=== PATIENT | male | born 1930 | race Caucasian/White ===

== ENCOUNTER 2017-02-17 15:24 | Inpatient (IN) ==
[2017-02-17] MEDS ORDERED: ACETAMINOPHEN 325 MG TABLET PO PRN (16:48)
[2017-02-17] MEDS ORDERED: MAGNESIUM HYDROXIDE 30 ML ORAL.SUSP PO PRN (16:48)
[2017-02-17] MEDS ORDERED: ONDANSETRON 4 MG/2 ML VIAL IV PRN (16:48)
[2017-02-17] MEDS ORDERED: oxyCODONE/APAP 5/325MG TABLET PO PRN (16:48)
[2017-02-17] MEDS ORDERED: IPRATROPIUM/ALBUTEROL 3 ML AMPUL.NEB NEB PRN (16:48)
[2017-02-17] MEDS ORDERED: NALOXONE HCL 0.4 MG/ML VIAL IV PRN (16:48)
[2017-02-17] MEDS ORDERED: PROMETHAZINE 25 MG/ML VIAL IV PRN (16:48)
--- NOTE | 2017-02-17 16:51 | Nephrology Consult Note ---
History of Present Illness - Reason for Consult Patient information: Note initiated : 02/17/17 at 4:46 pm Service Date, if different from initiated Date: [] Patient: Jakob Lancaster 86 y/o M admitted on 02/17/17 for Shortness of breath. Chief Complaint: [] Consult date: 02/17/17 chronic renal failure - Chief Complaint SOB, worsening edema - History of Present Illness Mr Lancaster is a pleasant 86 y/o male with PMH of HTN, CHF, CKD, MDS and other multiple medical issues who was seen in [facility] today for follow up He c/o worsening LE edema with 14 lbs of weight gain since last seen and SOB and progressive weakness Patient has h/o 2 recent hospitalisation at [facility] where he was diagnosed with PNA and also had UGI bleed during his first hospital stay from erosive gastritis He was discharged to SNF on bumex 2mg po daily and he finally was discharged home yesterday during the last couple of weeks his family c/o worsening edema He is getting progressively weak and also had a fall at home He denies CP He denies nausea, vomiting He denies diarrhea He has no c/o cough or fever he denies any urinary issues, but please note he had difficulty inserting mar cath at outside hospital and he does not want this Review of Systems All systems PM: reviewed and no additional remarkable complaints except as stated (as in HPI) Past History Past medical history: Peripheral vascular disease Chronic COPD (chronic obstructive pulmonary disease) Chronic Diabetes mellitus Chronic Hypertension Chronic Benign prostatic hypertrophy Chronic Chronic anticoagulation Chronic Chronic atrial fibrillation Chronic Azotemia Chronic Chronic kidney disease, stage IV (severe) Chronic Acute exacerbation of chronic obstructive pulmonary disease Chronic Recurrent right pleural effusion Chronic Acute decompensated heart failure Chronic Long-term use of high-risk medication Chronic Osteoarthritis Chronic Arthralgia of multiple joints Chronic Secondary hyperparathyroidism of renal origin Chronic Hypomagnesemia Acute Hypertensive renal disease Chronic Edema Chronic Chronic kidney disease, stage IV (severe) Chronic Chronic Kidney Disease Chronic Sleep apnea Chronic Shortness of breath Acute Pulmonary hypertension Chronic Pneumonia Acute Obesity Acute Myelodysplastic syndrome Acute Mitral stenosis Acute Hyperlipidemia Acute Gynecomastia Acute Gout Chronic Type 2 diabetes mellitus Chronic Congestive heart failure Acute CAD (coronary artery disease) Acute Pardo palsy Chronic Atrial fibrillation Chronic Aortic stenosis Acute Anemia Chronic + Past Medical Problems Past surgical history: Surgical History History of total knee arthroplasty Chronic History of total replacement of right shoulder joint Chronic History of right-sided carotid endarterectomy Chronic History of three vessel coronary artery bypass Chronic ~1983 Status post thoracentesis Chronic Hx of CABG Acute History of carotid endarterectomy Acute Previous back surgery Acute Status post Maze operation for atrial fibrillation Acute H/O aortic valve replacement Past family history: NOT PERTINENT Past social history: LIVES WITH HIS IN [place] HAS good family support denies any current addictions Medications and Allergies Home Medications Medication Instructions Recorded Confirmed Type brinzolamide 1 % eye 1 drp OU BID ml 09/27/14 02/17/17 History drops,suspension tamsulosin 0.4 mg capsule 0.4 mg PO HS cap 09/27/14 02/17/17 History cholecalciferol (vitamin D3) 1,000 1,000 unit PO QDAY cap 12/06/14 02/17/17 History unit capsule magnesium 250 mg tablet 250 mg PO QDAY tab 12/06/14 02/17/17 History Brimonidine Ophth Drops [Alphagan 1 gtt OU BID 05/28/15 02/17/17 History P Ophth Drops] Latanoprost Ophth Drops [Xalatan 1 gtt OU HS 05/28/15 02/17/17 History Ophth Drops] ipratropium-albuterol INHALATION QID 07/22/16 02/17/17 History potassium chloride ER 10 mEq 10 meq PO QDAY #30 cap 09/29/16 02/17/17 Rx capsule,extended release verapamil ER (SR) 120 mg 120 mg PO QDAY 09/29/16 02/17/17 History tablet,extended release metolazone 2.5 mg tablet 2.5 mg PO .COMPLEX 30 Days #20 tab 01/27/17 02/17/17 Rx zolpidem 5 mg tablet 5 mg PO HS PRN #14 tab 01/27/17 02/17/17 Rx allopurinol 100 mg tablet 100 mg PO QDAY 02/17/17 02/17/17 History bumetanide 2 mg tablet 2 mg PO QDAY 02/17/17 02/17/17 History calcium acetate 667 mg tablet 667 mg PO QDAY tab 02/17/17 02/17/17 History colchicine 0.6 mg tablet 0.6 mg PO QDAY 02/17/17 02/17/17 History digoxin 125 mcg tablet See Label Instructions .ROUTE 02/17/17 02/17/17 History .COMPLEX fluconazole 100 mg tablet 200 mg PO QDAY tab 02/17/17 02/17/17 History fluticasone 50 mcg/actuation nasal 1 spray INTRANASAL QDAY 02/17/17 02/17/17 History spray,suspension furosemide 80 mg tablet See Label Instructions .ROUTE 02/17/17 02/17/17 History .COMPLEX insulin aspart 100 unit/mL See Label Instructions SUB-Q 02/17/17 02/17/17 History subcutaneous solution .COMPLEX metoprolol succinate ER 25 mg 25 mg PO QDAY 02/17/17 02/17/17 History tablet,extended release 24 hr multivitamin,[id number] 1 tab PO QDAY 02/17/17 02/17/17 History tablet pantoprazole 40 mg tablet,delayed 40 mg PO QDAY 02/17/17 02/17/17 History release polyethylene glycol 3350 17 17 g PO QDAY g 02/17/17 02/17/17 History gram/dose oral powder trazodone 50 mg tablet 50 mg PO QHS 02/17/17 02/17/17 History warfarin 5 mg tablet 5 mg PO QDAY 02/17/17 02/17/17 History Allergies Allergy/AdvReac Type Severity Reaction Status Date / Time No Known Drug Allergies Allergy Verified 02/17/17 14:08 Exam - Vital Signs Vital signs: Temp Resp BP Pulse Ox 98.4 F 20 117/62 100 02/17/17 16:00 02/17/17 16:00 02/17/17 16:00 02/17/17 16:00 - General Appearance General appearance: appears started age, chronically ill EENT: mucous membranes moist Neck: JVD Respiratory: clear Cardiology: no rub, edema (3-4+), irregular rhythm Gastrointestinal: no tenderness, no guarding Integumentary: warm and dry Neurologic: alert and oriented x3 Musculoskeletal: no erythema, no cyanosis Psychiatric: mood/affect appropriate Assessment and Plan (1) Acute CHF (congestive heart failure) patient with acute systolic and diastolic CHF with worsening renal function and anasarca on exam 14 lb weight gain since last seen 3 weeks ago discussed with the patient will start with IV diuresis, lasix 80mg iv tid or lasix gtt will follow the response give recurrent hospitalisation, his renal labs and his fluid status he may need to initiate dialysis, he has refused this in the past but may try if needed His family was very clearly told that given his age and his multiple medical issues not sure how he will tolerate dialysis, did discuss with the pt he has choice not do dialysis and may be opt for hospice will discuss this further anemia: s/p prbc transfusion yesterday, also gets mark and rachel per hematology at [facility] ckd STAGE IV with worsening renal function in the setting of CHF Will follow along Appreciate hospitalist help in managing this pt Status: Acute (2) Chronic kidney disease, stage IV (severe) Status: Chronic (3) Anemia Status: Chronic Qualifiers: 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
[2017-02-17] MEDS ORDERED: FUROSEMIDE 100 MG/10 ML VIAL IV ONE (16:52)
[2017-02-17] MEDS ORDERED: DEXTROSE 31 GM ORAL.SUSP PO PRN (16:53)
[2017-02-17] MEDS ORDERED: DEXTROSE 50% 50 ML VIAL IV PRN (16:53)
--- NOTE | 2017-02-17 16:56 | Internal Med History&Physical ---
Medical - H&P: HPI Patient information: Note initiated : 02/17/17 at 4:54 pm Service Date, if different from initiated Date: [] Patient: Jakob Lancaster a 86 y/o M admitted on 02/17/17 for Shortness of breath. Chief Complaint: [] History of present illness: Mr. Lancaster is a 86 year old Male with h/o chf, cor pulmonale, presents to the hospital as a direct admit from nephrology clinic for CHF exacerbation. The patient has h/o CHF has been admitted 3 times over the last 6 weeks for pneumonia and chf exacerbation at outside facility. The patient was discharged I believe 10 days ago, but has not been completely asymptomatic. He notes that he has been having progressive weakenss and decreased effort tolerence. He is being more short of breath with worsening edema in his lower extremities, which now extend above his knees and involve the depended parts. he was therefore sent from the renal clinic for admission and diuresis the patient admits to cough and clear sputum, no fever, but hayes have some chills , has been treated x 2 for recent pneumonia, has h/o mssa and bronchisepta both were molina sensitive as per hospitalization in january. he had pleural tap done during the last hospitalization, not sure if this fluid was infected. The patient has no other issues reported. berenicethers in the room, patient is DNR. All systems: reviewed and no additional remarkable complaints except as stated ( as per HPI) Medical - H&P: [facility] Medical history: Medical History (Last Reviewed 02/17/17 @ 16:17 by Deidra Contreras MD) Shingles (Acute) Traumatic ecchymosis of left shoulder (Acute) Acute CHF (congestive heart failure) (Acute) Peripheral vascular disease (Chronic) COPD (chronic obstructive pulmonary disease) (Chronic) Diabetes mellitus (Chronic) Hypertension (Chronic) Benign prostatic hypertrophy (Chronic) Chronic anticoagulation (Chronic) Chronic atrial fibrillation (Chronic) Azotemia (Chronic) Chronic kidney disease, stage IV (severe) (Chronic) Acute exacerbation of chronic obstructive pulmonary disease (Chronic) Recurrent right pleural effusion (Chronic) Acute decompensated heart failure (Chronic) Pes planus of both feet (Chronic) Long-term use of high-risk medication (Chronic) Osteoarthritis (Chronic) Arthralgia of multiple joints (Chronic) Secondary hyperparathyroidism of renal origin (Chronic) Hypomagnesemia (Acute) Hypertensive renal disease (Chronic) Edema (Chronic) Chronic kidney disease, stage IV (severe) (Chronic) Chronic Kidney Disease (Chronic) Sleep apnea (Chronic) Shortness of breath (Acute) Pulmonary hypertension (Chronic) Pneumonia (Acute) Obesity (Acute) Myelodysplastic syndrome (Acute) Mitral stenosis (Acute) Hyperlipidemia (Acute) Gynecomastia (Acute) Gout (Chronic) Type 2 diabetes mellitus (Chronic) Congestive heart failure (Acute) CAD (coronary artery disease) (Acute) Pardo palsy (Chronic) Atrial fibrillation (Chronic) Aortic stenosis (Acute) Anemia (Chronic) Surgical history: Past Surgical History (Last Reviewed 02/17/17 @ 16:17 by Deidra Contreras MD) Hx of CABG (Acute) History of carotid endarterectomy (Acute) Previous back surgery (Acute) Status post Maze operation for atrial fibrillation (Acute) H/O aortic valve replacement (Acute) History of right-sided carotid endarterectomy (Chronic) History of three vessel coronary artery bypass (Chronic ~1983) History of total knee arthroplasty (Chronic) History of total replacement of right shoulder joint (Chronic) Status post thoracentesis (Chronic) Pertinent family history: Family History (Last Reviewed 02/17/17 @ 16:17 by Deidra Contreras MD) Father Heart disease Hypertension Myocardial infarction Cancer Mother Ovarian cancer Brother Heart problem Medical - H&P: Meds Home Medications Medication Instructions Recorded Confirmed Type brinzolamide 1 % eye 1 drp OU BID ml 09/27/14 02/17/17 History drops,suspension tamsulosin 0.4 mg capsule 0.4 mg PO HS cap 09/27/14 02/17/17 History cholecalciferol (vitamin D3) 1,000 1,000 unit PO QDAY cap 12/06/14 02/17/17 History unit capsule magnesium 250 mg tablet 250 mg PO QDAY tab 12/06/14 02/17/17 History Brimonidine Ophth Drops [Alphagan 1 gtt OU BID 05/28/15 02/17/17 History P Ophth Drops] Latanoprost Ophth Drops [Xalatan 1 gtt OU HS 05/28/15 02/17/17 History Ophth Drops] ipratropium-albuterol INHALATION QID 07/22/16 02/17/17 History potassium chloride ER 10 mEq 10 meq PO QDAY #30 cap 09/29/16 02/17/17 Rx capsule,extended release verapamil ER (SR) 120 mg 120 mg PO QDAY 09/29/16 02/17/17 History tablet,extended release metolazone 2.5 mg tablet 2.5 mg PO .COMPLEX 30 Days #20 tab 01/27/17 02/17/17 Rx zolpidem 5 mg tablet 5 mg PO HS PRN #14 tab 01/27/17 02/17/17 Rx allopurinol 100 mg tablet 100 mg PO QDAY 02/17/17 02/17/17 History bumetanide 2 mg tablet 2 mg PO QDAY 02/17/17 02/17/17 History calcium acetate 667 mg tablet 667 mg PO QDAY tab 02/17/17 02/17/17 History colchicine 0.6 mg tablet 0.6 mg PO QDAY 02/17/17 02/17/17 History digoxin 125 mcg tablet See Label Instructions .ROUTE 02/17/17 02/17/17 History .COMPLEX fluconazole 100 mg tablet 200 mg PO QDAY tab 02/17/17 02/17/17 History fluticasone 50 mcg/actuation nasal 1 spray INTRANASAL QDAY 02/17/17 02/17/17 History spray,suspension furosemide 80 mg tablet See Label Instructions .ROUTE 02/17/17 02/17/17 History .COMPLEX insulin aspart 100 unit/mL See Label Instructions SUB-Q 02/17/17 02/17/17 History subcutaneous solution .COMPLEX metoprolol succinate ER 25 mg 25 mg PO QDAY 02/17/17 02/17/17 History tablet,extended release 24 hr multivitamin,ba-djos-qtlwyohs 1 tab PO QDAY 02/17/17 02/17/17 History tablet pantoprazole 40 mg tablet,delayed 40 mg PO QDAY 02/17/17 02/17/17 History release polyethylene glycol 3350 17 17 g PO QDAY g 02/17/17 02/17/17 History gram/dose oral powder trazodone 50 mg tablet 50 mg PO QHS 02/17/17 02/17/17 History warfarin 5 mg tablet 5 mg PO QDAY 02/17/17 02/17/17 History Allergies Allergy/AdvReac Type Severity Reaction Status Date / Time No Known Drug Allergies Allergy Verified 02/17/17 14:08 Medical - H&P: Exam - Constitutional Vitals: Temp Resp BP Pulse Ox 98.4 F 20 117/62 100 02/17/17 16:00 02/17/17 16:00 02/17/17 16:00 02/17/17 16:00 Exam: GENERAL: The patient is a well-developed, well-nourished in no apparent distress. Is alert and oriented x3. VITAL SIGNS: Reviewed and as noted elsewhere. HEENT: Head is normocephalic and atraumatic. Extraocular muscles are intact. Pupils are equal, round, and reactive to light. Nares appeared normal. Mouth appears any without lesions. Mucous membranes are moist. NECK: Normal to inspection, Supple, No lymphadenopathy or thyromegaly raised jvp , positive hepatojugular reflex LUNGS: Air entry equal on both sides, no wheezing, prseent bilatateral crackles upto mid lungs. . No accessory muscles of respiration HEART: Regular rate and rhythm normal, S1 and S2 heard, no Gallop, S3 or Rub Noted, systolic murmur present lsbb. ABDOMEN: Soft, nontender, and nondistended. Positive bowel sounds. No hepatosplenomegaly was noted. flank fullness present. EXTREMITIES: No cyanosis, clubbing, rash, lesions , dependend edema ++++ NEUROLOGIC: Cranial nerves II through XII are grossly intact. Motor and Sensory System Grossly Intact PSYCHIATRIC: Normal affect, Normal Mood. Appropriate Behavior. SKIN: No ulceration or wounds noted, No jaundice, No rash noted. Medical - H&P: Reslt - Labs Labs: Laboratory Tests 01/26/17 02/17/17 02/17/17 08:25 14:34 14:34 WBC 5.5 17.3 H Hgb 10.2 L 8.8 L Plt Count 102 L 89 L Sodium 139 Potassium 4.2 Chloride 102 Carbon Dioxide 23 BUN 121 H* Creatinine 2.7 H GFR Calculation 21 Glucose 188 H NT-Pro-B Natriuret Pep > 65093.0 H Medical - H&P: A/P - Narrative A/P Narrative: A/P Acute systolic and Diastoilc heart failure Acute cor pulmonale Chr respiratory failure CAD/ PVD CKD stage 4 Anemia, secondary to chf and myelodysplastic syndrome Thrombocytopenia AFib on Coumadin, DM HTN HLD H/o Recent herpes infeciton. s/p acyclovir Leucocytosis A/P Admit to tele IV lasix 80mg and then IV lasix drip I wou8ld have preferred a mar, but patient declined, if needed can place a condom catheter await X Ray results, still has effusions, not sure if loculated. elevated wbc noted Consider CT chest if loculated effusion, will consider repeated drain try to obtain records from recent hospitalization at [facility] check procalcitonin, start broad spectrum ABX if elevated he was recently transfused for anemia, monitor hb, transfused as needed. He is on darbapoietin and granix Very poor overall prognosis, patient and family educated regarding same. DVT lovenox sq Diet cardiac, renal , diabetic DNR OT/PT/ ST consult Social History - Social History marital status: education level: high school occupational status: retired other: children-4 - Tobacco smoking status: Never smoker - Alcohol alcohol intake frequency: does not drink
--- NOTE | 2017-02-17 17:30 | XRay Report ---
INDICATION: History of congestive heart failure. Dyspnea. TECHNIQUE: PA and lateral upright chest x-ray COMPARISON: Previous chest x-rays dated 01/16/2017, 05/30/2015, 04/21/2008 FINDINGS:Previous median sternotomy. There is cardiomegaly. This is unchanged since 01/16/2017. There is a prosthetic aortic valve. Pulmonary vascularity is prominent consistent pulmonary congestion. There is mild bronchial wall thickening which may be consistent with interstitial edema. There is blunting of both costophrenic angles consistent with pleural effusions, right larger than left. No focal pulmonary parenchymal consolidation. Overall appearance is essentially unchanged since 01/16/2017 IMPRESSION: 1. Cardiomegaly and pulmonary congestion. Possible mild interstitial edema 2. Bilateral pleural effusions, right larger than left 3. Radiographic appearance is essentially unchanged since 01/16/2017 Interpreted and Authenticated by: Franklyn Jansen 02/17/17
[2017-02-17] MEDS: INSULIN LISPRO 1 UNIT/0.01 ML UNIT SQ SCH ×2 (17:35→21:59)
[2017-02-17] MEDS ORDERED: FUROSEMIDE 250 MG in 0.9 % SODIUM CHLORIDE 225 ML IV SCH (18:00)
[2017-02-17] MEDS ORDERED: POTASSIUM CHLORIDE 20 MEQ PACKET PO ONE (20:36)
[2017-02-17] MEDS: traZODone HCL 50 MG TABLET PO SCH (21:48)
[2017-02-17] MEDS: TAMSULOSIN 0.4 MG CAPSULE PO SCH (21:48)
[2017-02-17] MEDS: BRINZOLAMIDE OU SCH (21:51)
[2017-02-17] MEDS: BRIMONIDINE OPHTH DROPS 1 GTT BOTTLE 5ML OU SCH (21:52)
[2017-02-17] MEDS: LEVOFLOXACIN 750 MG/150 ML BAG IV SCH (21:53)
[2017-02-17] MEDS: LATANOPROST OPHTH DROPS 2.5ML BOTTLE OD SCH (21:55)
[2017-02-18 05:27] LABS: ALT/SGPT 16 U/l (0-40); Albumin 3.8 gm/dL (3.2-5.2); Albumin/Globulin Ratio 1.7 (1.0-2.3); Alkaline Phosphatase 114 U/L (39-117); Bilirubin,Direct 0.3 mg/dL (0.0-0.3); Blood Urea Nitrogen 118 mg/dl (8-23); Gamma Glutamyl Transpeptidase 103 U/L (8-61); Magnesium 1.8 mg/dL (1.6-2.5); Uric Acid 11.7 mg/dL (2.5-8.0)
[2017-02-18] MEDS ORDERED: CHLOROTHIAZIDE SODIUM 500 MG VIAL IV ONE (06:52)
[2017-02-18] MEDS: PANTOPRAZOLE 40 MG TABLET PO SCH (07:20)
[2017-02-18 07:32] LABS: Basophils # (Auto) 0 K/mcL (0.0-0.3); Basophils % (Auto) 0 % (0.0-2.0); Eosinophils # (Auto) 0.1 K/mcL (0.0-0.7); Eosinophils % (Auto) 0.5 % (0.0-7.0); Granulocytes % (Auto) 93.4 % (38.0-78.0); Lymphocytes # (Auto) 0.4 K/mcL (1.5-4.8); Lymphocytes % (Auto) 3.1 % (15.5-49.0); Mean Cell Volume 110.2 fL (80.0-100.0); Mean Corpuscular HGB Conc 32.8 g/dL (31.0-36.0); Mean Corpuscular Hemoglobin 36.2 pg (26.0-34.0); Monocytes # (Auto) 0.4 K/mcL (0.1-0.9); Platelet Count 116 K/mcL (140-440); RBC 2.48 M/mcL (4.50-5.90); Red Cell Distribution Width 27.1 % (11.5-14.5)
[2017-02-18] MEDS: INSULIN LISPRO 1 UNIT/0.01 ML UNIT SQ SCH ×4 (07:33→21:08)
[2017-02-18] MEDS ORDERED: COLCHICINE 0.6 MG TABLET PO SCH (09:00)
[2017-02-18] MEDS ORDERED: VERAPAMIL 120 MG TAB.XL.24H PO SCH (09:00)
[2017-02-18] MEDS: ENOXAPARIN 40 MG/0.4 ML SYRINGE SQ SCH (10:12)
[2017-02-18] MEDS: MAGNESIUM OXIDE 400 MG TABLET PO SCH (10:13)
[2017-02-18] MEDS: POTASSIUM CHLORIDE 10 MEQ TABLET PO SCH (10:13)
[2017-02-18] MEDS: ALLOPURINOL 100 MG TABLET PO SCH (10:13)
[2017-02-18] MEDS: CALCIUM ACETATE 667 MG CAPSULE PO SCH (10:13)
[2017-02-18] MEDS: COLCHICINE 0.6 MG TABLET PO SCH (10:48)
[2017-02-18] MEDS: BRINZOLAMIDE OU SCH ×2 (10:48→21:10)
[2017-02-18] MEDS: LATANOPROST OPHTH DROPS 2.5ML BOTTLE OD SCH ×2 (10:49→21:09)
[2017-02-18] MEDS: VITAMIN D3 1,000 UNIT TABLET PO SCH (10:51)
--- NOTE | 2017-02-18 10:59 | Cat Scan Report ---
CLINICAL INFORMATION: Pleural effusions COMPARISON: Previous chest x-rays dated 02/17/2017, 01/16/2017, 05/30/2015 TECHNIQUE: Axial noncontrast enhanced images through the chest. Sagittally and coronally reformatted images. MIP reformatted images. FINDINGS: There are bilateral pleural effusions. Present moderate left pleural effusion. This appears simple without detectable septations or loculations. There is a small right pleural effusion. There is a pleural-based mass density at the right lung base. This measures approximately 4.8 x 1.6 x 2.2 cm. This may be atelectatic lung. No pulmonary parenchymal consolidation. No other focal mass. There is emphysematous disease most marked in the upper lungs. No significant bronchiectasis. There is extensive atherosclerotic calcification. The thoracic aorta is densely calcified. Ascending thoracic aorta measures 3.7 cm in maximum diameter. This is at the upper limits of normal. No true aneurysm. Pulmonary artery is markedly enlarged. Main pulmonary artery measures 5.0 cm in diameter. Right and left pulmonary arteries are enlarged. Appearance is consistent with pulmonary arterial hypertension. Generalized cardiomegaly. There is extensive coronary artery calcification. Patient has undergone previous coronary artery bypass procedure. There is no pericardial fluid. Images of the upper abdomen demonstrate moderate ascites. The spleen is not imaged in its entirety and the craniocaudal dimension is not assessed. There may be a micronodular contour of the liver. No focal intrahepatic abnormality identified on this noncontrast enhanced study. No thoracic compression fracture. No rib fracture or lytic lesion. IMPRESSION: 1. Markedly enlarged main pulmonary artery, right pulmonary, left pulmonary artery. Appearance is consistent with pulmonary arterial hypertension 2. Severe atherosclerotic disease. Densely calcified coronary arteries. There is cardiomegaly. 3. Small right and moderate left pleural effusion. Right basilar soft tissue density may be atelectasis 4. Ascites Interpreted and Authenticated by: Franklyn Jansen 02/18/17
[2017-02-18] MEDS: FLUTICASONE PROPIONATE SPRAY.NAS NS SCH ×2 (11:18→13:02)
[2017-02-18] MEDS: methylPREDNISolone SOD SUCC 125 MG/2 ML VIAL IV SCH ×3 (13:02→23:23)
[2017-02-18] MEDS: DIGOXIN 125 MCG TABLET PO SCH (14:07)
--- NOTE | 2017-02-18 14:10 | Internal Med Progress Note ---
Medical - PN: Subj Patient information: Note initiated : 02/18/17 at 2:07 pm Service Date, if different from initiated Date: [] Patient: Jakob Lancaster a 86 y/o M admitted on 02/17/17 for Shortness of Breath/CHF. Chief Complaint: [] Interval history: Mr. Lancaster is a 86 year old Male with h/o chf, cor pulmonale, presents to the hospital as a direct admit from nephrology clinic for CHF exacerbation. The patient has h/o CHF has been admitted 3 times over the last 6 weeks for pneumonia and chf exacerbation at outside facility. The patient was discharged I believe 10 days ago, but has not been completely asymptomatic. He notes that he has been having progressive weakenss and decreased effort tolerence. He is being more short of breath with worsening edema in his lower extremities, which now extend above his knees and involve the depended parts. he was therefore sent from the renal clinic for admission and diuresis the patient admits to cough and clear sputum, no fever, but hayes have some chills , has been treated x 2 for recent pneumonia, has h/o mssa and bronchisepta both were molina sensitive as per hospitalization in january. he had pleural tap done during the last hospitalization, not sure if this fluid was infected. The patient has no other issues reported. daugthers in the room, patient is DNR. February 18 The patient seen examined, noted that he had some response to IV lasix, but not as much as expected, he had a CT chest done which showed left pleural effusion greater than right. plan to get records for [facility] Patient is voiding ok, recieved one dose of chlorothiazide IV today, will see how he responds He was short of breath more so than yesterday, was placed on bipap, and duonebs and steroids starged ABG done shows PH 7.45/37/95, lac 0.9 Patient nehprologist plans to initiate dialysis will hold off on resuming coumadin at this time. The patient has shortness of breath but otherwise does not endorse any other complaints. Pertinent ROS: Denies headache, dizziness Denies chest pain, palpitations Present cough and shortness of breath Denies abdominal pain, nausea or vomiting. - Constitutional Vitals: Vital Signs Temp Pulse Resp BP Pulse Ox 99.0 F H 83 22 132/64 99 02/18/17 12:00 02/18/17 12:00 02/18/17 12:00 02/18/17 12:00 02/18/17 12:00 Period Temp Pulse Resp BP Sys/Woods Pulse Ox Last 24 Hr 98.0 F-99.4 F 75-89 16-22 116-132/62-78 97-100 Intake and Output 02/18/17 02/18/17 02/18/17 05:59 13:59 21:59 Intake Total 340 / 340 120 / 120 Output Total 1200 / 1200 1525 / 1525 Balance -860 / -860 -1405 / -1405 Weight 198 lb Patient Weight 02/19/17 05:59 Weight 198 lb Intake & Output: Intake & Output 02/18/17 02/18/17 02/18/17 05:59 13:59 21:59 Intake Total 340 / 340 120 / 120 Output Total 1200 / 1200 1525 / 1525 Balance -860 / -860 -1405 / -1405 Weight 198 lb Intake: Oral 340 / 340 120 / 120 Output: Void Amount 1200 / 1200 1525 / 1525 Other: Meal Breakfast Percent of Meal Consumed 100% Feeding Ability Assist with Tray Set Up # Voids 1 # Bowel Movements 1 Exam: Constitutional; Afebrile, cooperative, alert, not in distress. Eyes- No icterus, , No periorbital swelling Ears- Ext ear normal, hearing normal to conversation. Neck- Midline trachea, supple Respiratory system: Air Entry equal on both sides, No crackles or wheezing, no rhonchi. CVS- Rate rhythm regular, S1,S2 heard, no gallop, no rub. Abdomen- Soft nontender abdomen, no organomegaly, no tenderness, no guarding or rigidity, CONTRACTS SPECIALIST- AOOx3, moving all extremities, no gross focal deficit noted. Extremity: Alfredo pitting edema upto thighs Medical - PN: Obj Da - Labs CBC & Chem 7: 02/18/17 04:07 02/18/17 04:07 Labs: Abnormal Lab Results 02/18/17 02/18/17 02/18/17 04:07 04:07 04:07 WBC 12.6 H RBC 2.48 L Hgb 9.0 L Hct 27.3 L MCV 110.2 H MCH 36.2 H RDW 27.1 H Plt Count 116 L MPV 13.4 H Gran % 93.4 H Lymph % (Auto) 3.1 L Gran # 11.8 H Lymph # (Auto) 0.4 L PT 18.9 H INR 1.5 H BUN 118 H* Creatinine 2.8 H Glucose 134 H Uric Acid 11.7 H GGT 103 H Lactate Dehydrogenase 267 H 02/17/17 17:26 WBC RBC Hgb Hct MCV MCH RDW Plt Count MPV Gran % Lymph % (Auto) Gran # Lymph # (Auto) PT 19.5 H INR 1.6 H BUN Creatinine Glucose Uric Acid GGT Lactate Dehydrogenase Meds: Medications Acetaminophen (Tylenol) 650 mg PO Q6HP PRN PRN Reason: PAIN/FEVER > 101 Albuterol/Ipratropium (Duoneb) 3 ml NEB Q4HRT [facility] Allopurinol (Zyloprim) 100 mg PO QDAY [facility] Last Admin: 02/18/17 10:13 Dose: 100 mg Brimonidine Tartrate (Alphagan P Ophth Drops) 1 gtt OU HS [facility] Last Admin: 02/17/17 21:52 Dose: 1 gtt Calcium Acetate (Phoslo) 667 mg PO QAC [facility] Last Admin: 02/18/17 10:13 Dose: 667 mg Colchicine (Colcrys) 0.3 mg PO DAILY [facility] Last Admin: 02/18/17 10:48 Dose: Not Given Dextrose (Dextrose 50%) 0 ml IV UD PRN PRN Reason: Hypoglycemia Diagnostic Test (Pha) (Accu-Chek) 1 each FS ACHS [facility] Last Admin: 02/18/17 07:33 Dose: 1 each Digoxin (Lanoxin) 62.5 mcg PO Q48H [facility] Digoxin (Lanoxin) 125 mcg PO Q48H [facility] Enoxaparin Sodium (Lovenox) 40 mg SQ DAILY [facility] Last Admin: 02/18/17 10:12 Dose: 40 mg Fluticasone Propionate (Flonase) 1 spray NS QDAY [facility] Last Admin: 02/18/17 13:02 Dose: 1 spray Glucose (Insta-Glucose) 15 gm PO PRN PRN PRN Reason: Hypoglycemia Furosemide 250 mg/ Sodium (Chloride) 250 mls @ 10 mls/hr IV Q24H [facility] PRN Reason: 10 MG/HR Last Admin: 02/17/17 17:21 Dose: 10 mg/hr, 10 mls/hr Levofloxacin (Levaquin) 750 mg in 150 mls @ 100 mls/hr IV Q48H [facility] Last Admin: 02/17/17 21:53 Dose: 100 mls/hr Insulin Human Lispro (Humalog) 0 unit SQ ACHS [facility] PRN Reason: Protocol Last Admin: 02/18/17 07:33 Dose: Not Given Latanoprost (Xalatan Ophth Drops) 1 gtt OD BID [facility] Last Admin: 02/18/17 10:49 Dose: 1 gtt Magnesium Hydroxide (Milk Of Magnesia) 30 ml PO DAILYP PRN PRN Reason: Constipation Magnesium Oxide (Magnesium Oxide) 400 mg PO DAILY [facility] Last Admin: 02/18/17 10:13 Dose: 400 mg Methylprednisolone Sodium Succinate (Solu-Medrol) 62.5 mg IV Q8 [facility] Last Admin: 02/18/17 13:02 Dose: 62.5 mg Naloxone HCl (Narcan) 0.1 mg IV Q2MIN PRN PRN Reason: Opiate Reversal Ondansetron HCl (Zofran) 4 mg IV Q4HP PRN PRN Reason: Nausea And Vomiting Oxycodone/Acetaminophen (Percocet 5-325 Mg) 1 tab PO Q4HP PRN PRN Reason: Pain Pantoprazole Sodium (Protonix) 40 mg PO QAMAC [facility] Last Admin: 02/18/17 07:20 Dose: 40 mg Brinzolamide [Azopt] (1 Drp)) 1 dose OU BID [facility] Last Admin: 02/18/17 10:48 Dose: 1 dose Potassium Chlor[facility] (Kdur) [facility] Last Admin: 02/18/17 10:13 Dose: 10 meq Promethazine HCl (Phenergan) 12.5 mg IV Q6HP PRN PRN Reason: Nausea And Vomiting Tamsulosin HCl (Flomax) 0.4 mg PO HS [facility] Last Admin: 02/17/17 21:48 Dose: 0.4 mg Trazodone HCl (Desyrel) 50 mg PO QHS [facility] Last Admin: 02/17/17 21:48 Dose: 50 mg Vitamin D (Vitamin D3) 1,000 unit PO DAILY [facility] Last Admin: 02/18/17 10:51 Dose: 1,000 unit Medical - PN: A/P - Time Spent With Patient Total time spent is greater than 50% in coordination of care (as documented) at patient's floor/unit and/or counseling patient: - Narrative A/P Narrative: A/P Acute systolic and Diastolic heart failure Acute hypoxic respiratory failure Acute cor pulmonale Chr respiratory failure CAD/ PVD CKD stage 4 Anemia, secondary to chf and myelodysplastic syndrome Thrombocytopenia AFib on Coumadin, DM HTN HLD H/o Recent herpes infeciton. s/p acyclovir Leucocytosis COPD A/P continue to monitor on tele On bipap IV steroids and duonebs. on lasix drip, also received iv chlorothiazide today, neg [id number] chest shows no loculated effusion left > right elevated procalcitonin noted, con antibiotics Wbc is trending down bp is stable, will monitor labs and replace lytes as needed hb is stable, and he was recently transfused for anemia, monitor hb, transfused as needed. He is on darbapoietin and granix HOld off on coumadin, Plan for HD catheter placement in AM by IR in [facility] DVT lovenox sq Diet cardiac, renal , diabetic DNR OT/PT/ ST consult Medical - PN: Qual - VTE Deep Vein Thrombosis/Pulmonary Embolism Present on Admission: No
[2017-02-18] MEDS ORDERED: rOPINIRole 0.25 MG TABLET PO ONE (14:31)
[2017-02-18 15:19] LABS: Magnesium 1.8 mg/dL (1.6-2.5)
[2017-02-18 15:30] LABS: Blood Urea Nitrogen 112 mg/dl (8-23)
[2017-02-18] MEDS: FUROSEMIDE IV SCH (16:22)
[2017-02-18] MEDS: DEXTROSE 5% IV SCH (16:22)
[2017-02-18] MEDS: WATER IV SCH (16:22)
[2017-02-18] MEDS: 0.45 % SODIUM CHLORIDE 1,000 ML IV SCH (16:25)
--- NOTE | 2017-02-18 17:37 | Nephrology Progress Note ---
Subjective Patient information: Note initiated : 02/18/17 at 5:35 pm Service Date, if different from initiated Date: [] Patient: Jakob Lancaster 86 y/o M admitted on 02/17/17 for Shortness of Breath/CHF. Chief Complaint: [] Principal diagnosis: CHF Interval history: Patient c/o SOB this am then improved during the day with diuresis and use of Bipap he continues to have issues with volume overload though he denies nausea, vomiting he denies dizziness no CP no other concerns He is currently on lasix gtt at 10mg/hour and he did get chlorthiazide this am his BP is so far maintained Pertinent ROS: as above Objective - Vital Signs Vital signs: Vital Signs Temp Pulse Pulse Resp BP Pulse Ox 02/18/17 17:05 94 H 22 94 02/18/17 16:00 99.2 F H 84 18 131/69 96 02/18/17 12:00 99.0 F H 83 22 132/64 99 02/18/17 10:07 80 19 98 02/18/17 08:45 98.0 F 80 20 123/69 98 02/18/17 04:00 98.0 F 77 16 116/78 97 02/18/17 00:00 98.8 F 75 20 132/72 100 02/17/17 20:00 99.3 F H 81 18 116/62 99 Intake and Output 02/18/17 02/18/17 02/18/17 05:59 13:59 21:59 Intake Total 340 / 340 120 / 120 200 / 200 Output Total 1200 / 1200 1525 / 1525 900 / 900 Balance -860 / -860 -1405 / -1405 -700 / -700 Intake: Oral 340 / 340 120 / 120 200 / 200 Output: Void Amount 1200 / 1200 1525 / 1525 900 / 900 Other: Meal Breakfast Percent of Meal Consumed 100% Feeding Ability Assist with Tray Set Up # Voids 1 # Bowel Movements 1 Weight 198 lb Patient Weight 02/19/17 05:59 Weight 198 lb Intake & Output: Intake & Output 02/18/17 02/18/17 02/18/17 05:59 13:59 21:59 Intake Total 340 / 340 120 / 120 200 / 200 Output Total 1200 / 1200 1525 / 1525 900 / 900 Balance -860 / -860 -1405 / -1405 -700 / -700 Weight 198 lb Intake: Oral 340 / 340 120 / 120 200 / 200 Output: Void Amount 1200 / 1200 1525 / 1525 900 / 900 Other: Meal Breakfast Percent of Meal Consumed 100% Feeding Ability Assist with Tray Set Up # Voids 1 # Bowel Movements 1 - General Appearance General appearance: appears started age, chronically ill EENT: mucous membranes moist Neck: JVD Respiratory: clear Cardiology: no rub, edema (anasarca), normal S1, normal S2 Gastrointestinal: no tenderness, no guarding Integumentary: warm and dry Neurologic: alert and oriented x3 Musculoskeletal: no erythema, no cyanosis Psychiatric: mood/affect appropriate - Lab 02/18/17 04:07 02/18/17 14:39 Most recent lab results Calcium 9.1 mg/dl (8.6-10.4) 02/18/17 14:39 Phosphorus 3.2 mg/dL (2.7-4.5) 02/18/17 14:39 Magnesium 1.8 mg/dL (1.6-2.5) 02/18/17 14:39 Assessment and Plan (1) Acute CHF (congestive heart failure) Mr Lancaster remains fluid overloaded despite using significant doses of loop he did get thiazide diuretic this am to augment the action of loop diuretics He is able to maintain negative fluid balance but given his fluid status, his recent recurrent hospitalisations, his current renal function which has fluctuated significantly (BUN 100-140 and s.creatinine 2.5-3.5 over the last one mth) I have discussed dialysis an option with the patient and his family at length This is given his increasing need of diuretics to maintain near euvolemic state and his current volume status (4 + edema with ascites and b/l pleural effusion) I have discussed risk, (dialysis dysequilibrium, fatigue post dialysis, confusion, seizures, etc) ,benefit of dialysis and also an option of not pursuing this at all and instead pursuing hospice at this point patient wish to give dialysis a try He will have TCC placed tomorrow for the same I will continue with IV diuresis for now given decent response would continue with BIPAP ventilation as well his Hb is stable for now Status: Acute (2) Chronic kidney disease, stage IV (severe) Status: Chronic (3) Anemia Status: Chronic Qualifiers: 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
[2017-02-18] MEDS: IPRATROPIUM/ALBUTEROL 3 ML AMPUL.NEB NEB SCH ×3 (19:21→23:22)
[2017-02-18] MEDS: rOPINIRole 0.25 MG TABLET PO SCH (21:08)
[2017-02-18] MEDS: traZODone HCL 50 MG TABLET PO SCH (21:08)
[2017-02-18] MEDS: TAMSULOSIN 0.4 MG CAPSULE PO SCH (21:08)
[2017-02-18] MEDS: BRIMONIDINE OPHTH DROPS 1 GTT BOTTLE 5ML OU SCH (21:09)
[2017-02-19] MEDS: IPRATROPIUM/ALBUTEROL 3 ML AMPUL.NEB NEB SCH ×6 (02:56→22:58)
[2017-02-19 04:13] LABS: ALT/SGPT 13 U/l (0-40); Albumin 3.8 gm/dL (3.2-5.2); Albumin/Globulin Ratio 1.8 (1.0-2.3); Alkaline Phosphatase 98 U/L (39-117); Bilirubin,Direct 0.4 mg/dL (0.0-0.3); Blood Urea Nitrogen 111 mg/dl (8-23); Gamma Glutamyl Transpeptidase 102 U/L (8-61); Magnesium 1.8 mg/dL (1.6-2.5); Uric Acid 12.1 mg/dL (2.5-8.0)
[2017-02-19 04:26] LABS: Basophils # (Auto) 0 K/mcL (0.0-0.3); Basophils % (Auto) 0 % (0.0-2.0); Eosinophils # (Auto) 0 K/mcL (0.0-0.7); Eosinophils % (Auto) 0 % (0.0-7.0); Granulocytes % (Auto) 95.4 % (38.0-78.0); Lymphocytes # (Auto) 0.1 K/mcL (1.5-4.8); Lymphocytes % (Auto) 3.4 % (15.5-49.0); Mean Cell Volume 110.6 fL (80.0-100.0); Mean Corpuscular HGB Conc 32.8 g/dL (31.0-36.0); Mean Corpuscular Hemoglobin 36.3 pg (26.0-34.0); Monocytes # (Auto) 0 K/mcL (0.1-0.9); Monocytes % (Auto) 1.2 % (1.0-12.0); Platelet Count 108 K/mcL (140-440); RBC 2.52 M/mcL (4.50-5.90); Red Cell Distribution Width 27.3 % (11.5-14.5)
[2017-02-19] MEDS: methylPREDNISolone SOD SUCC 125 MG/2 ML VIAL IV SCH (05:06)
[2017-02-19] MEDS: PANTOPRAZOLE 40 MG TABLET PO SCH (08:18)
[2017-02-19] MEDS: INSULIN LISPRO 1 UNIT/0.01 ML UNIT SQ SCH ×4 (08:19→21:35)
[2017-02-19] MEDS: ALLOPURINOL 100 MG TABLET PO SCH (08:19)
[2017-02-19] MEDS: ENOXAPARIN 40 MG/0.4 ML SYRINGE SQ SCH (08:19)
[2017-02-19] MEDS: CALCIUM ACETATE 667 MG CAPSULE PO SCH (08:20)
[2017-02-19] MEDS: POTASSIUM CHLORIDE 10 MEQ TABLET PO SCH (08:21)
[2017-02-19] MEDS: VITAMIN D3 1,000 UNIT TABLET PO SCH (08:37)
[2017-02-19] MEDS: LEVOFLOXACIN 750 MG/150 ML BAG IV SCH (08:37)
[2017-02-19] MEDS: MAGNESIUM OXIDE 400 MG TABLET PO SCH (08:37)
[2017-02-19] MEDS: FLUTICASONE PROPIONATE SPRAY.NAS NS SCH (08:44)
[2017-02-19] MEDS: BRINZOLAMIDE OU SCH ×2 (08:46→21:26)
[2017-02-19] MEDS: LATANOPROST OPHTH DROPS 2.5ML BOTTLE OD SCH ×2 (08:47→21:26)
[2017-02-19] MEDS ORDERED: MANNITOL 12.5 GM/50 ML VIAL IV ONE (10:47)
[2017-02-19] MEDS: COLCHICINE 0.6 MG TABLET PO SCH (13:00)
--- NOTE | 2017-02-19 13:49 | XRay Report ---
CLINICAL INFORMATION: Dysphagia. Pneumonia. TECHNIQUE: Single contrast barium swallow performed in supine and upright positions COMPARISON: None. FINDINGS: Cervical esophagus is anatomically normal. No cricopharyngeal dysmotility. No Zenker's diverticulum. No stricture or mass. Airway penetration is documented although definite airway aspiration was not noted. No barium identified with in the lungs. There is esophageal dysmotility with tertiary contractions. No esophageal mass or stricture. No hiatal hernia. IMPRESSION: 1. Airway penetration without definite aspiration 2. Tertiary contractions. No esophageal mass or stricture. No obstruction to the passage of barium. Interpreted and Authenticated by: Franklyn Jansen 02/19/17
[2017-02-19] MEDS ORDERED: DIGOXIN 125 MCG TABLET PO SCH (14:00)
--- NOTE | 2017-02-19 15:30 | Internal Med Progress Note ---
Medical - PN: Subj Patient information: Note initiated : 02/19/17 at 3:28 pm Service Date, if different from initiated Date: [] Patient: Jakob Lancaster a 86 y/o M admitted on 02/17/17 for Shortness of Breath/CHF. Chief Complaint: [] Interval history: Mr. Lancaster is a 86 year old Male with h/o chf, cor pulmonale, presents to the hospital as a direct admit from nephrology clinic for CHF exacerbation. The patient has h/o CHF has been admitted 3 times over the last 6 weeks for pneumonia and chf exacerbation at outside facility. The patient was discharged I believe 10 days ago, but has not been completely asymptomatic. He notes that he has been having progressive weakenss and decreased effort tolerence. He is being more short of breath with worsening edema in his lower extremities, which now extend above his knees and involve the depended parts. he was therefore sent from the renal clinic for admission and diuresis the patient admits to cough and clear sputum, no fever, but hayes have some chills , has been treated x 2 for recent pneumonia, has h/o mssa and bronchisepta both were molina sensitive as per hospitalization in january. he had pleural tap done during the last hospitalization, not sure if this fluid was infected. The patient has no other issues reported. daugthers in the room, patient is DNR. February 18 The patient seen examined, noted that he had some response to IV lasix, but not as much as expected, he had a CT chest done which showed left pleural effusion greater than right. plan to get records for [facility] hospit[facility] Patient is voiding ok, recieved one dose of chlorothiazide IV today, will see how he responds He was short of breath more so than yesterday, was placed on bipap, and duonebs and steroids starged ABG done shows PH 7.45/37/95, lac 0.9 Patient nehprologist plans to initiate dialysis will hold off on resuming coumadin at this time. The patient has shortness of breath but otherwise does not endorse any other complaints. February 19 patient doing well, no acute overnight issues did not tolerate bipap well but otherwise ok had Tunneled cath placed this AM, HD started by nephrology Pertinent ROS: Denies headache, dizziness Denies chest pain, palpitations Denies cough or shortness of breath Denies abdominal pain, nausea or vomiting. - Constitutional Vitals: Vital Signs Temp Pulse Resp BP Pulse Ox 97.6 F 76 18 114/69 100 02/19/17 14:07 02/19/17 15:19 02/19/17 15:19 02/19/17 14:07 02/19/17 15:22 Period Temp Pulse Resp BP Sys/Woods Pulse Ox Last 24 Hr 97.6 F-100.0 F 72-94 18-30 114-147/64-75 94-100 Intake and Output 02/19/17 02/19/17 02/19/17 05:59 13:59 21:59 Intake Total 200 / 200 Output Total 1675 / 1675 475 / 475 0 / 0 Balance -1675 / -1675 -275 / -275 0 / 0 Intake & Output: Intake & Output 02/19/17 02/19/17 02/19/17 05:59 13:59 21:59 Intake Total 200 / 200 Output Total 1675 / 1675 475 / 475 0 / 0 Balance -1675 / -1675 -275 / -275 0 / 0 Intake: Oral 200 / 200 Output: Urine Catheter Amount 500 / 500 Void Amount 1175 / 1175 475 / 475 Hemodialysis UF 0 / 0 Other: Meal Lunch Percent of Meal Consumed 100% # Bowel Movements 1 Exam: Constitutional; Afebrile, cooperative, alert, not in distress. Eyes- No icterus, , No periorbital swelling Ears- Ext ear normal, hearing normal to conversation. Neck- Midline trachea, supple Respiratory system: Air Entry equal on both sides, No wheezing, bibasilar crackles still prsent, edema upto just below knees. CVS- Rate rhythm irregular, S1,S2 heard, no gallop, no rub. Abdomen- Soft nontender abdomen, no organomegaly, no tenderness, no guarding or rigidity, POLICY SERVICE COORDINATOR- AOOx3, moving all extremities, no gross focal deficit noted. Medical - PN: Obj Da - Labs CBC & Chem 7: 02/19/17 03:03 02/19/17 03:03 Labs: Abnormal Lab Results 02/19/17 02/19/17 02/19/17 03:03 03:03 03:03 WBC 3.4 L RBC 2.52 L Hgb 9.1 L Hct 27.8 L MCV 110.6 H MCH 36.3 H RDW 27.3 H Plt Count 108 L MPV 13.4 H Gran % 95.4 H Lymph % (Auto) 3.4 L Gran # Lymph # (Auto) 0.1 L Hale # (Auto) 0 L PT 17.5 H INR 1.4 H Anion Gap 17.0 H BUN 111 H* Creatinine 2.5 H Glucose 205 H Uric Acid 12.1 H Direct Bilirubin 0.4 H GGT 102 H Lactate Dehydrogenase Globulin 2.1 L 02/18/17 02/18/17 02/18/17 14:39 04:07 04:07 WBC 12.6 H RBC 2.48 L Hgb 9.0 L Hct 27.3 L MCV 110.2 H MCH 36.2 H RDW 27.1 H Plt Count 116 L MPV 13.4 H Gran % 93.4 H Lymph % (Auto) 3.1 L Gran # 11.8 H Lymph # (Auto) 0.4 L Hale # (Auto) PT INR Anion Gap BUN 112 H* 118 H* Creatinine 2.8 H 2.8 H Glucose 175 H 134 H Uric Acid 11.7 H Direct Bilirubin GGT 103 H Lactate Dehydrogenase 267 H Globulin 02/18/17 02/17/17 04:07 17:26 WBC RBC Hgb Hct MCV MCH RDW Plt Count MPV Gran % Lymph % (Auto) Gran # Lymph # (Auto) Hale # (Auto) PT 18.9 H 19.5 H INR 1.5 H 1.6 H Anion Gap BUN Creatinine Glucose Uric Acid Direct Bilirubin GGT Lactate Dehydrogenase Globulin Meds: Medications Acetaminophen (Tylenol) 650 mg PO Q6HP PRN PRN Reason: PAIN/FEVER > 101 Albuterol/Ipratropium (Duoneb) 3 ml NEB Q4HRT [facility] Last Admin: 02/19/17 15:18 Dose: 3 ml Allopurinol (Zyloprim) 100 mg PO QDAY [facility] Last Admin: 02/19/17 08:19 Dose: 100 mg Brimonidine Tartrate (Alphagan P Ophth Drops) 1 gtt OU HS [facility] Last Admin: 02/18/17 21:09 Dose: 1 gtt Calcium Acetate (Phoslo) [facility] Last Admin: 02/19/17 08:20 Dose: 667 mg Colchicine (Colcrys) 0.3 mg PO DAILY [facility] Last Admin: 02/19/17 13:00 Dose: Not Given Dextrose (Dextrose 50%) 0 ml IV UD PRN PRN Reason: Hypoglycemia Diagnostic Test (Pha) (Accu-Chek) 1 each FS ACHS [facility] Last Admin: 02/19/17 11:35 Dose: 1 each Digoxin (Lanoxin) 62.5 mcg PO Q48H [facility] Digoxin (Lanoxin) 125 mcg PO Q48H [facility] Last Admin: 02/18/17 14:07 Dose: 125 mcg Enoxaparin Sodium (Lovenox) 40 mg SQ DAILY [facility] Last Admin: 02/19/17 08:19 Dose: 40 mg Fluticasone Propionate (Flonase) 1 spray NS QDAY [facility] Last Admin: 02/19/17 08:44 Dose: 1 spr Glucose (Insta-Glucose) 15 gm PO PRN PRN PRN Reason: Hypoglycemia Levofloxacin (Levaquin) 750 mg in 150 mls @ 100 mls/hr IV Q48H [facility] Last Admin: 02/19/17 08:37 Dose: 100 mls/hr Furosemide 250 mg/ Dextrose 250 mls @ 10 mls/hr IV Q24H [facility] PRN Reason: 10 MG/HR Last Admin: 02/18/17 16:22 Dose: 10 mg/hr, 10 mls/hr Sodium Chloride (Sodium Chloride 0.45%) 1,000 mls @ 10 mls/hr IV .Q24H [facility] Last Admin: 02/18/17 16:25 Dose: 10 mls/hr Insulin Human Lispro (Humalog) [address] [facility] PRN Reason: Protocol Last Admin: 02/19/17 11:35 Dose: 4 unit Latanoprost (Xalatan Ophth Drops) 1 gtt OD BID [facility] Last Admin: 02/19/17 08:47 Dose: 1 gtt Magnesium Hydroxide (Milk Of Magnesia) 30 ml PO DAILYP PRN PRN Reason: Constipation Magnesium Oxide (Magnesium Oxide) 400 mg PO DAILY [facility] Last Admin: 02/19/17 08:37 Dose: 400 mg Methylprednisolone Sodium Succinate (Solu-Medrol) 62.5 mg IV Q8 [facility] Last Admin: 02/19/17 05:06 Dose: 62.5 mg Naloxone HCl (Narcan) 0.1 mg IV Q2MIN PRN PRN Reason: Opiate Reversal Ondansetron HCl (Zofran) 4 mg IV Q4HP PRN PRN Reason: Nausea And Vomiting Oxycodone/Acetaminophen (Percocet 5-325 Mg) 1 tab PO Q4HP PRN PRN Reason: Pain Pantoprazole Sodium (Protonix) [facility] Last Admin: 02/19/17 08:18 Dose: 40 mg Brinzolamide [Azopt] (1 Drp)) 1 dose OU BID [facility] Last Admin: 02/19/17 08:46 Dose: 1 dose Potassium Chloride (Kdur) 10 meq [facility] Last Admin: 02/19/17 08:21 Dose: 10 meq Promethazine HCl (Phenergan) 12.5 mg IV Q6HP PRN PRN Reason: Nausea And Vomiting Ropinirole HCl (Requip) 0.5 mg PO [facility] Last Admin: 02/18/17 21:08 Dose: 0.5 mg Tamsulosin HCl (Flomax) 0.4 mg PO [facility] Last Admin: 02/18/17 21:08 Dose: 0.4 mg Trazodone HCl (Desyrel) 50 mg PO QHS [facility] Last Admin: 02/18/17 21:08 Dose: 50 mg Vitamin D (Vitamin D3) 1,000 unit PO DAILY [facility] Last Admin: 02/19/17 08:37 Dose: 1,000 unit Medical - PN: A/P - Time Spent With Patient Total time spent is greater than 50% in coordination of care (as documented) at patient's floor/unit and/or counseling patient: - Narrative A/P Narrative: A/P Acute systolic and Diastolic heart failure Acute hypoxic respiratory failure Acute cor pulmonale Chr respiratory failure CAD/ PVD CKD stage 4 Anemia, secondary to chf and myelodysplastic syndrome Thrombocytopenia AFib on Coumadin, DM HTN HLD H/o Recent herpes infeciton. s/p acyclovir Leucocytosis COPD A/P continue to monitor on tele On bipap, po steroids and duonebs, d/c iv steroids on lasix drip, also received iv chlorothiazide -[id number] since admission. elevated procalcitonin noted, con antibiotics levoflox x total of 5-7 days wbc normal bp is stable, will monitor labs and replace lytes as needed hb is stable, and he was recently transfused for anemia, monitor hb, transfused as needed. He is on darbapoietin and granix as outpatient for MDS Resume Coumadin per pharmacy now, first HD session today. DVT lovenox sq Diet cardiac, renal , diabetic DNR OT/PT/ ST consult Medical - PN: Qual - VTE Deep Vein Thrombosis/Pulmonary Embolism Present on Admission: No
--- NOTE | 2017-02-19 15:33 | Nephrology Progress Note ---
Subjective Patient information: Note initiated : 02/19/17 at 3:27 pm Service Date, if different from initiated Date: [] Patient: aJkob Lancaster 86 y/o M admitted on 02/17/17 for Shortness of Breath/CHF. Chief Complaint: [] Principal diagnosis: CHF Interval history: good diuresis on continuous lasix infusion with gradual improvement in LE edema and dyspnea patient rather feels a lot better today he denies CP does c/o dysphagia no nausea, no other GI issues he had TCC placed this am, no complications Pertinent ROS: as above Objective - Vital Signs Vital signs: Vital Signs Temp Pulse Pulse Resp BP BP Pulse Ox 02/19/17 15:22 100 02/19/17 15:19 76 18 02/19/17 14:07 97.6 F 74 114/69 02/19/17 13:46 80 122/70 02/19/17 13:18 72 126/70 02/19/17 12:50 97.7 F 78 129/65 02/19/17 12:00 98.3 F 18 131/64 100 02/19/17 08:00 20 100 02/19/17 07:58 98.1 F 20 135/75 100 02/19/17 04:00 98.8 F 79 18 147/69 97 02/19/17 00:00 98.8 F 81 20 94 02/18/17 22:31 84 97 02/18/17 21:12 94 02/18/17 20:00 100.0 F H 76 30 H 128/75 100 02/18/17 19:22 94 H 22 94 02/18/17 17:05 94 H 22 94 02/18/17 16:00 99.2 F H 84 18 131/69 96 Intake and Output 02/19/17 02/19/17 02/19/17 05:59 13:59 21:59 Intake Total 200 / 200 Output Total 1675 / 1675 475 / 475 0 / 0 Balance -1675 / -1675 -275 / -275 0 / 0 Intake: Oral 200 / 200 Output: Urine Catheter Amount 500 / 500 Void Amount 1175 / 1175 475 / 475 Hemodialysis UF 0 / 0 Other: Meal Lunch Percent of Meal Consumed 100% # Bowel Movements 1 Intake & Output: Intake & Output 02/19/17 02/19/17 02/19/17 05:59 13:59 21:59 Intake Total 200 / 200 Output Total 1675 / 1675 475 / 475 0 / 0 Balance -1675 / -1675 -275 / -275 0 / 0 Intake: Oral 200 / 200 Output: Urine Catheter Amount 500 / 500 Void Amount 1175 / 1175 475 / 475 Hemodialysis UF 0 / 0 Other: Meal Lunch Percent of Meal Consumed 100% # Bowel Movements 1 - General Appearance General appearance: appears started age, chronically ill EENT: mucous membranes moist Neck: no JVD Respiratory: clear Cardiology: no rub, edema (much improved 2+), normal S1, normal S2 Gastrointestinal: no tenderness, no guarding Integumentary: warm and dry Neurologic: no asterixis, alert and oriented x3 Musculoskeletal: no erythema, no cyanosis Psychiatric: mood/affect appropriate - Lab 02/19/17 03:03 02/19/17 03:03 Most recent lab results Calcium 9.0 mg/dl (8.6-10.4) 02/19/17 03:03 Phosphorus 3.5 mg/dL (2.7-4.5) 02/19/17 03:03 Magnesium 1.8 mg/dL (1.6-2.5) 02/19/17 03:03 Assessment and Plan (1) Acute CHF (congestive heart failure) Patient initiated on dialysis for persistent fluid overload and recurrent hospitalisation in recent past atleast 2 of which are due to SOB/volume overload and fluctuating renal function and needing diuretics in very high doses to maintain reasonable net negative fluid balance, which I think will be difficult to achieve as outpt Patient was dialysed for 1.5 hrs today using revaclear 300 dialyser, 3K/2.5 ca dialysate and no UF removal, qb 200 and [id number], low flow dialysis today to prevent dialysis dysequilirbium he also received mannitol for this reason he will continue with HD tomorrow for longer duration continue lasix gtt for another day and then will switch to intermittent lasix no other change in meds made by me I will continue to follow him, he is eager to go home, refuses going to SNF for rehab, hope we can achieve this soon appreciate hospitalist help in managing this pt Status: Acute (2) Chronic kidney disease, stage IV (severe) Status: Chronic (3) Anemia Status: Chronic Qualifiers: 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
[2017-02-19] MEDS: WARFARIN 5 MG TABLET PO SCH (16:48)
[2017-02-19] MEDS: 0.45 % SODIUM CHLORIDE 1,000 ML IV SCH (16:49)
[2017-02-19] MEDS: FUROSEMIDE IV SCH (16:59)
[2017-02-19] MEDS: DEXTROSE 5% IV SCH (16:59)
[2017-02-19] MEDS: WATER IV SCH (16:59)
[2017-02-19] MEDS: TAMSULOSIN 0.4 MG CAPSULE PO SCH (21:26)
[2017-02-19] MEDS: traZODone HCL 50 MG TABLET PO SCH (21:26)
[2017-02-19] MEDS: BRIMONIDINE OPHTH DROPS 1 GTT BOTTLE 5ML OU SCH (21:27)
[2017-02-19] MEDS: rOPINIRole 0.25 MG TABLET PO SCH (21:38)
[2017-02-20] MEDS: methylPREDNISolone SOD SUCC 125 MG/2 ML VIAL IV SCH (03:03)
[2017-02-20] MEDS: IPRATROPIUM/ALBUTEROL 3 ML AMPUL.NEB NEB SCH ×4 (04:07→15:22)
[2017-02-20 05:03] LABS: ALT/SGPT 11 U/l (0-40); Albumin 3.4 gm/dL (3.2-5.2); Albumin/Globulin Ratio 1.5 (1.0-2.3); Alkaline Phosphatase 85 U/L (39-117); Bilirubin,Direct 0.3 mg/dL (0.0-0.3); Blood Urea Nitrogen 93 mg/dl (8-23); Gamma Glutamyl Transpeptidase 95 U/L (8-61); Magnesium 1.7 mg/dL (1.6-2.5); Uric Acid 10.1 mg/dL (2.5-8.0)
[2017-02-20 06:26] LABS: Basophils # (Auto) 0 K/mcL (0.0-0.3); Basophils % (Auto) 0 % (0.0-2.0); Eosinophils # (Auto) 0 K/mcL (0.0-0.7); Eosinophils % (Auto) 0.2 % (0.0-7.0); Granulocytes % (Auto) 88.4 % (38.0-78.0); Lymphocytes # (Auto) 0.2 K/mcL (1.5-4.8); Lymphocytes % (Auto) 3.2 % (15.5-49.0); Mean Cell Volume 110.3 fL (80.0-100.0); Mean Corpuscular HGB Conc 33.1 g/dL (31.0-36.0); Mean Corpuscular Hemoglobin 36.5 pg (26.0-34.0); Monocytes # (Auto) 0.4 K/mcL (0.1-0.9); Monocytes % (Auto) 8.2 % (1.0-12.0); Platelet Count 103 K/mcL (140-440); RBC 2.52 M/mcL (4.50-5.90); Red Cell Distribution Width 27.1 % (11.5-14.5)
[2017-02-20] MEDS: PANTOPRAZOLE 40 MG TABLET PO SCH (06:53)
[2017-02-20] MEDS: INSULIN LISPRO 1 UNIT/0.01 ML UNIT SQ SCH ×3 (06:53→17:31)
[2017-02-20] MEDS: ENOXAPARIN 40 MG/0.4 ML SYRINGE SQ SCH (07:53)
[2017-02-20] MEDS: ALLOPURINOL 100 MG TABLET PO SCH (07:53)
[2017-02-20] MEDS: CALCIUM ACETATE 667 MG CAPSULE PO SCH (07:53)
[2017-02-20] MEDS: VITAMIN D3 1,000 UNIT TABLET PO SCH (07:53)
[2017-02-20] MEDS: POTASSIUM CHLORIDE 10 MEQ TABLET PO SCH (07:55)
[2017-02-20] MEDS ORDERED: predniSONE 20 MG TABLET PO SCH (08:00)
[2017-02-20] MEDS: LATANOPROST OPHTH DROPS 2.5ML BOTTLE OD SCH ×2 (09:00→22:58)
[2017-02-20] MEDS ORDERED: MANNITOL 12.5 GM/50 ML VIAL IV ONE (09:30)
--- NOTE | 2017-02-20 09:55 | Internal Med Progress Note ---
Medical - PN: Subj Patient information: Note initiated : 02/20/17 at 9:52 am Service Date, if different from initiated Date: [] Patient: Jakob Lancaster a 86 y/o M admitted on 02/17/17 for Shortness of Breath/CHF. Chief Complaint: [] Interval history: Mr. Lancaster is a 86 year old Male with h/o chf, cor pulmonale, presents to the hospital as a direct admit from nephrology clinic for CHF exacerbation. The patient has h/o CHF has been admitted 3 times over the last 6 weeks for pneumonia and chf exacerbation at outside facility. The patient was discharged I believe 10 days ago, but has not been completely asymptomatic. He notes that he has been having progressive weakenss and decreased effort tolerence. He is being more short of breath with worsening edema in his lower extremities, which now extend above his knees and involve the depended parts. he was therefore sent from the renal clinic for admission and diuresis the patient admits to cough and clear sputum, no fever, but hayes have some chills , has been treated x 2 for recent pneumonia, has h/o mssa and bronchisepta both were molina sensitive as per hospitalization in january. he had pleural tap done during the last hospitalization, not sure if this fluid was infected. The patient has no other issues reported. daugthers in the room, patient is DNR. February 18 The patient seen examined, noted that he had some response to IV lasix, but not as much as expected, he had a CT chest done which showed left pleural effusion greater than right. plan to get records for [facility] hospitailz[facility] Patient is voiding ok, recieved one dose of chlorothiazide IV today, will see how he responds He was short of breath more so than yesterday, was placed on bipap, and duonebs and steroids starged ABG done shows PH 7.45/37/95, lac 0.9 Patient nehprologist plans to initiate dialysis will hold off on resuming coumadin at this time. The patient has shortness of breath but otherwise does not endorse any other complaints. February 19 patient doing well, no acute overnight issues did not tolerate bipap well but otherwise ok had Tunneled cath placed this AM, HD started by nephrology February 20 Patient seen examined, lying comfortably in bed, flat no complaints, slept well, ate breakfast, toleated well, no nausea or abdominal pain patient had first session of HD yesterday, seems to have done well, plan for another session today Not needing bipap any more coumadin resumed Pertinent ROS: Denies headache, dizziness Denies chest pain, palpitations Denies cough or shortness of breath Denies abdominal pain, nausea or vomiting. - Constitutional Vitals: Vital Signs Temp Pulse Resp BP Pulse Ox 97.9 F 82 16 129/74 94 02/20/17 06:54 02/20/17 07:51 02/20/17 07:51 02/20/17 06:54 02/20/17 07:51 Period Temp Pulse Resp BP Sys/Woods Pulse Ox Last 24 Hr 97.4 F-99.6 F 72-84 16-20 100-133/49-74 94-100 Intake and Output 02/19/17 02/20/17 02/20/17 21:59 05:59 13:59 Intake Total 650 / 650 600 / 600 50 / 50 Output Total 525 / 525 550 / 550 Balance 125 / 125 50 / 50 50 / 50 Weight 178 lb 4.8 oz Intake & Output: Intake & Output 02/19/17 02/20/17 02/20/17 21:59 05:59 13:59 Intake Total 650 / 650 600 / 600 50 / 50 Output Total 525 / 525 550 / 550 Balance 125 / 125 50 / 50 50 / 50 Weight 178 lb 4.8 oz Intake: IV 490 / 490 Sodium Chloride 0.45% 1,000 ml 244 / 244 @ 10 mls/hr IV .Q24H [facility] Rx#: [id number] Lasix 250 mg In Dextrose 5% in 246 / 246 Water 225 ml @ 10 MG/HR 10 mls/ hr IV Q24H [facility] Rx#:[id number] Oral 160 / 160 50 / 50 GI Tube Flush 600 / 600 Output: Void Amount 525 / 525 550 / 550 Hemodialysis UF 0 / 0 Other: # Voids 1 1 Exam: Constitutional; Afebrile, cooperative, alert, not in distress. Eyes- No icterus, , No periorbital swelling Ears- Ext ear normal, hearing normal to conversation. Neck- Midline trachea, supple Respiratory system: Air Entry equal on both sides, No crackles or wheezing, no rhonchi. CVS- Rate rhythm regular, S1,S2 heard, no gallop, no rub. Edema upto knees Abdomen- Soft nontender abdomen, no organomegaly, no tenderness, no guarding or rigidity, [employer]- AOOx3, moving all extremities, no gross focal deficit noted. Medical - PN: Obj Da - Labs CBC & Chem 7: 02/20/17 04:07 02/20/17 04:07 Labs: Abnormal Lab Results 02/20/17 02/20/17 02/20/17 04:07 04:07 04:07 WBC RBC 2.52 L Hgb 9.2 L Hct 27.8 L MCV 110.3 H MCH 36.5 H RDW 27.1 H Plt Count 103 L MPV 12.7 H Gran % 88.4 H Lymph % (Auto) 3.2 L Gran # Lymph # (Auto) 0.2 L Bennett # (Auto) PT 18.7 H INR 1.5 H Anion Gap BUN 93 H Creatinine 2.2 H Glucose 186 H Uric Acid 10.1 H Direct Bilirubin GGT 95 H Lactate Dehydrogenase Total Protein 5.6 L Globulin 02/19/17 02/19/17 02/19/17 03:03 03:03 03:03 WBC 3.4 L RBC 2.52 L Hgb 9.1 L Hct 27.8 L MCV 110.6 H MCH 36.3 H RDW 27.3 H Plt Count 108 L MPV 13.4 H Gran % 95.4 H Lymph % (Auto) 3.4 L Gran # Lymph # (Auto) 0.1 L Bennett # (Auto) 0 L PT 17.5 H INR 1.4 H Anion Gap 17.0 H BUN 111 H* Creatinine 2.5 H Glucose 205 H Uric Acid 12.1 H Direct Bilirubin 0.4 H GGT 102 H Lactate Dehydrogenase Total Protein Globulin 2.1 L 02/18/17 02/18/17 02/18/17 14:39 04:07 04:07 WBC 12.6 H RBC 2.48 L Hgb 9.0 L Hct 27.3 L MCV 110.2 H MCH 36.2 H RDW 27.1 H Plt Count 116 L MPV 13.4 H Gran % 93.4 H Lymph % (Auto) 3.1 L Gran # 11.8 H Lymph # (Auto) 0.4 L Bennett # (Auto) PT INR Anion Gap BUN 112 H* 118 H* Creatinine 2.8 H 2.8 H Glucose 175 H 134 H Uric Acid 11.7 H Direct Bilirubin GGT 103 H Lactate Dehydrogenase 267 H Total Protein Globulin 02/18/17 02/17/17 04:07 17:26 WBC RBC Hgb Hct MCV MCH RDW Plt Count MPV Gran % Lymph % (Auto) Gran # Lymph # (Auto) Bennett # (Auto) PT 18.9 H 19.5 H INR 1.5 H 1.6 H Anion Gap BUN Creatinine Glucose Uric Acid Direct Bilirubin GGT Lactate Dehydrogenase Total Protein Globulin Meds: Medications Acetaminophen (Tylenol) 650 mg PO Q6HP PRN PRN Reason: PAIN/FEVER > 101 Albuterol/Ipratropium (Duoneb) 3 ml NEB Q4HRT [facility] Last Admin: 02/20/17 06:48 Dose: 3 ml Allopurinol (Zyloprim) 100 mg PO QDAY [facility] Last Admin: 02/20/17 07:53 Dose: 100 mg Brimonidine Tartrate (Alphagan P Ophth Drops) 1 gtt OU HS [facility] Last Admin: 02/19/17 21:27 Dose: 1 gtt [facility]oslo) [facility] Last Admin: 02/20/17 07:53 Dose: 667 mg Colchicine (Colcrys) 0.3 mg PO DAILY [facility] Last Admin: 02/19/17 13:00 Dose: Not Given Dextrose (Dextrose 50%) 0 ml IV UD PRN PRN Reason: Hypoglycemia Diagnostic Test (Pha) (Accu-Chek) 1 each FS ACHS [facility] Last Admin: 02/20/17 06:53 Dose: 1 each Digoxin (Lanoxin) 62.5 mcg PO Q48H [facility] Last Admin: 02/19/17 16:47 Dose: 62.5 mcg Digoxin (Lanoxin) 125 mcg PO Q48H [facility] Last Admin: 02/18/17 14:07 Dose: 125 mcg Enoxaparin Sodium (Lovenox) 40 mg SQ DAILY [facility] Last Admin: 02/20/17 07:53 Dose: 40 mg Fluticasone Propionate (Flonase) 1 spray NS QDAY [facility] Last Admin: 02/19/17 08:44 Dose: 1 spr Furosemide (Lasix) 80 mg PO BIDD [facility] Glucose (Insta-Glucose) 15 gm PO PRN PRN PRN Reason: Hypoglycemia Levofloxacin (Levaquin) 750 mg in 150 mls @ 100 mls/hr IV Q48H [facility] Last Admin: 02/19/17 08:37 Dose: 100 mls/hr Sodium Chloride (Sodium Chloride 0.45%) 1,000 mls @ 10 mls/hr IV .Q24H [facility] Last Admin: 02/19/17 16:49 Dose: 10 mls/hr Insulin Human Lispro (Humalog) 0 unit SQ ACHS [facility] PRN Reason: Protocol Last Admin: 02/20/17 06:53 Dose: 2 unit Latanoprost (Xalatan Ophth Drops) 1 gtt OD BID [facility] Last Admin: 02/19/17 21:26 Dose: 1 gtt Magnesium Hydroxide (Milk Of Magnesia) 30 ml PO DAILYP PRN PRN Reason: Constipation Magnesium Oxide (Magnesium Oxide) 400 mg PO DAILY [facility] Last Admin: 02/19/17 08:37 Dose: 400 mg Metolazone (Zaroxolyn) 2.5 mg PO DAILY@0830 [facility] Naloxone HCl (Narcan) 0.1 mg IV Q2MIN PRN PRN Reason: Opiate Reversal Ondansetron HCl (Zofran) 4 mg IV Q4HP PRN PRN Reason: Nausea And Vomiting Oxycodone/Acetaminophen (Percocet 5-325 Mg) 1 tab PO Q4HP PRN PRN Reason: Pain Last Admin: 02/20/17 00:25 Dose: 1 tab Pantoprazole Sodium (Protonix) 40 mg PO [facility] Last Admin: 02/20/17 06:53 Dose: 40 mg Brinzolamide [Azopt] (1 Drp)) 1 dose OU BID [facility] Last Admin: 02/19/17 21:26 Dose: 1 dose Potassium Chloride (Kdur) 10 meq PO [facility] Last Admin: 02/20/17 07:55 Dose: 10 meq Prednisone (Prednisone) 40 mg PO [facility] Stop: 02/24/17 07:59 Last Admin: 02/20/17 07:54 Dose: 40 mg Promethazine HCl (Phenergan) 12.5 mg IV Q6HP PRN PRN Reason: Nausea And Vomiting Ropinirole HCl (Requip) 0.5 mg PO [facility] Last Admin: 02/19/17 21:38 Dose: 0.5 mg Tamsulosin HCl (Flomax) 0.4 mg PO [facility] Last Admin: 02/19/17 21:26 Dose: 0.4 mg Trazodone HCl (Desyrel) 50 mg PO QHS [facility] Last Admin: 02/19/17 21:26 Dose: 50 mg Vitamin D (Vitamin D3) 1,000 unit PO DAILY [facility] Last Admin: 02/20/17 07:53 Dose: 1,000 unit Warfarin Sodium (Coumadin Per Pharmacy) 1 order PO UD [facility] Warfarin Sodium (Coumadin) 5 mg PO DAILY@1400 [facility] Last Admin: 02/19/17 16:48 Dose: 5 mg Medical - PN: A/P - Time Spent With Patient Total time spent is greater than 50% in coordination of care (as documented) at patient's floor/unit and/or counseling patient: - Narrative A/P Narrative: A/P Acute systolic and Diastolic heart failure- Clinically improving, patient on IV lasix drip, now on dialysis, switch to oral lasix. Acute hypoxic respiratory failure/ Chronic Resp failure: Still needs some oxygen, but off bipap, continue oxygen supplementation to keep osat > 90 % Acute cor pulmonale- chr issue, aggresive fluid removal via HD and using diuresis CAD/ PVD- Continue home medications, ESRD on hemodialysis, HD initiated yesterday, tolerated well, nephrology following Anemia, secondary to chf and myelodysplastic syndrome- Hb stable needs darbapoitin and granix, managed by hematology Thrombocytopenia- Due to MDS stable AFib on Coumadin,- Rate stable, coumadin resumed, also has a cardiac valve replaced DM- glucose ok, on sliding scale insulin, continue same, anticipate some high readings due to use of steroids, HTN- bp stable HLD- on statin. H/o Recent herpes infeciton. s/p acyclovir Leucocytosis- mildly elevated procalcitonin, on levofloxacin, doing well, continue 7-10 datys COPD- on steroids and duonebs, no wheeze on exam. DVT lovenox sq, till INR is therapeutic. Diet cardiac, renal , diabetic DNR OT/PT/ ST consult Medical - PN: Qual - VTE Deep Vein Thrombosis/Pulmonary Embolism Present on Admission: No
[2017-02-20] MEDS: COLCHICINE 0.6 MG TABLET PO SCH (10:27)
[2017-02-20] MEDS: FLUTICASONE PROPIONATE SPRAY.NAS NS SCH (10:27)
[2017-02-20] MEDS: BRINZOLAMIDE OU SCH ×2 (12:21→23:12)
[2017-02-20] MEDS: MAGNESIUM OXIDE 400 MG TABLET PO SCH (14:35)
[2017-02-20] MEDS: DIGOXIN 125 MCG TABLET PO SCH (15:00)
[2017-02-20] MEDS: WARFARIN 5 MG TABLET PO SCH (15:43)
[2017-02-20] MEDS ORDERED: FUROSEMIDE 80 MG TABLET PO SCH (16:00)
[2017-02-20] MEDS: 0.45 % SODIUM CHLORIDE 1,000 ML IV SCH ×2 (17:30→22:20)
[2017-02-20] MEDS ORDERED: oxyCODONE/APAP 5/325MG TABLET PO PRN ×2 (18:31→21:10)
[2017-02-20] MEDS ORDERED: PROMETHAZINE 25 MG/ML VIAL IV PRN ×2 (18:31→21:10)
[2017-02-20] MEDS ORDERED: DEXTROSE 50% 50 ML VIAL IV PRN ×2 (18:31→21:10)
[2017-02-20] MEDS ORDERED: ONDANSETRON 4 MG/2 ML VIAL IV PRN ×2 (18:31→21:10)
[2017-02-20] MEDS ORDERED: NALOXONE HCL 0.4 MG/ML VIAL IV PRN ×2 (18:31→21:10)
[2017-02-20] MEDS ORDERED: 0.45 % SODIUM CHLORIDE 1,000 ML IV SCH (18:31)
[2017-02-20] MEDS ORDERED: DEXTROSE 31 GM ORAL.SUSP PO PRN ×2 (18:31→21:10)
[2017-02-20] MEDS ORDERED: ACETAMINOPHEN 325 MG TABLET PO PRN ×2 (18:31→21:10)
[2017-02-20] MEDS ORDERED: MAGNESIUM HYDROXIDE 30 ML ORAL.SUSP PO PRN ×2 (18:31→21:10)
[2017-02-20] MEDS ORDERED: IPRATROPIUM/ALBUTEROL 3 ML AMPUL.NEB NEB SCH (19:00)
[2017-02-20] MEDS ORDERED: LATANOPROST OPHTH DROPS 2.5ML BOTTLE OD SCH (21:00)
[2017-02-20] MEDS ORDERED: rOPINIRole 0.25 MG TABLET PO SCH (21:00)
[2017-02-20] MEDS ORDERED: INSULIN LISPRO 1 UNIT/0.01 ML UNIT SQ SCH (21:00)
[2017-02-20] MEDS ORDERED: BRIMONIDINE OPHTH DROPS 1 GTT BOTTLE 5ML OU SCH (21:00)
[2017-02-20] MEDS ORDERED: traZODone HCL 50 MG TABLET PO SCH (21:00)
[2017-02-20] MEDS ORDERED: TAMSULOSIN 0.4 MG CAPSULE PO SCH (21:00)
[2017-02-20] MEDS ORDERED: FUROSEMIDE 100 MG/10 ML VIAL IV ONE ×3 (21:04→21:36)
--- NOTE | 2017-02-20 21:29 | Nephrology Progress Note ---
Subjective Patient information: Note initiated : 02/20/17 at 9:25 pm Service Date, if different from initiated Date: [] Patient: Jakob Lancaster 86 y/o M admitted on 02/17/17 for Shortness of Breath/CHF. Chief Complaint: [] Principal diagnosis: CHF Interval history: patient seen during dialysis today He states he feels much better he denies SOB, CP his appetite is much improved his LE edema is improving as well he is anxious to go home soon Pertinent ROS: as above Objective - Vital Signs Vital signs: Vital Signs Temp Pulse Pulse Pulse Resp BP BP 02/20/17 20:08 76 16 02/20/17 20:03 02/20/17 15:50 98.7 F 18 130/84 02/20/17 14:41 98.1 F 67 115/57 02/20/17 14:19 96 H 131/64 02/20/17 13:53 74 122/57 02/20/17 13:20 71 122/73 02/20/17 12:54 86 131/70 02/20/17 12:42 98.3 F 65 109/68 02/20/17 12:00 98.4 F 20 131/70 02/20/17 11:22 76 18 02/20/17 08:00 81 18 02/20/17 07:51 82 16 02/20/17 06:54 97.9 F 20 129/74 02/20/17 04:12 113/65 02/20/17 04:04 99.6 F H 02/19/17 23:46 100/49 02/19/17 23:44 99.3 F H 84 16 100/49 02/19/17 22:59 76 18 Pulse Ox 02/20/17 20:08 02/20/17 20:03 99 02/20/17 15:50 100 02/20/17 14:41 02/20/17 14:19 02/20/17 13:53 02/20/17 13:20 02/20/17 12:54 02/20/17 12:42 02/20/17 12:00 97 02/20/17 11:22 02/20/17 08:00 100 02/20/17 07:51 94 02/20/17 06:54 100 02/20/17 04:12 02/20/17 04:04 02/19/17 23:46 02/19/17 23:44 94 02/19/17 22:59 Intake and Output 02/20/17 02/20/17 02/20/17 05:59 13:59 21:59 Intake Total 600 / 600 160 / 160 500 / 500 Output Total 550 / 550 895 / 895 1500 / 1500 Balance 50 / 50 -735 / -735 -1000 / -1000 Intake: Oral 160 / 160 500 / 500 GI Tube Flush 600 / 600 Output: Urine Catheter Amount 375 / 375 500 / 500 Void Amount 550 / 550 520 / 520 Hemodialysis UF 1000 / 1000 Other: Meal Lunch Percent of Meal Consumed 100% Feeding Ability Independent # Voids 1 Intake & Output: Intake & Output 02/20/17 02/20/17 02/20/17 05:59 13:59 21:59 Intake Total 600 / 600 160 / 160 500 / 500 Output Total 550 / 550 895 / 895 1500 / 1500 Balance 50 / 50 -735 / -735 -1000 / -1000 Intake: Oral 160 / 160 500 / 500 GI Tube Flush 600 / 600 Output: Urine Catheter Amount 375 / 375 500 / 500 Void Amount 550 / 550 520 / 520 Hemodialysis UF 1000 / 1000 Other: Meal Lunch Percent of Meal Consumed 100% Feeding Ability Independent # Voids 1 - General Appearance General appearance: appears started age, chronically ill EENT: mucous membranes moist Neck: no JVD Respiratory: clear Cardiology: no rub, edema, normal S1, normal S2 Gastrointestinal: no tenderness, no organomegaly Integumentary: no rash, warm and dry Neurologic: alert and oriented x3 Musculoskeletal: no erythema, no cyanosis Psychiatric: mood/affect appropriate - Lab 02/20/17 04:07 02/20/17 04:07 Most recent lab results Calcium 8.9 mg/dl (8.6-10.4) 02/20/17 04:07 Phosphorus 3.4 mg/dL (2.7-4.5) 02/20/17 04:07 Magnesium 1.7 mg/dL (1.6-2.5) 02/20/17 04:07 Assessment and Plan (1) Acute CHF (congestive heart failure) cardiorenal syndrome/CHF Patient seen on dialysis today, dialysis done for 2.5 hrs using revaclear dialyser, 3K/2.5Ca dialysate, UF goal of 1L, IC302dx/min, qd 400ml/min laisx gtt d/moses today, will get intermittent lasix with outpatient diuretic regimen of furosemide 80mg and metolazone q2-3days discussed again need for fluid restriction, also important he follows low sodium diet will follow along appreciate hospitalist help in managing this pt Status: Acute (2) Chronic kidney disease, stage IV (severe) Status: Chronic (3) Anemia Status: Chronic Qualifiers: 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
[2017-02-20 21:59] LABS: ALT/SGPT 12 U/l (0-40); Albumin 3.9 gm/dL (3.2-5.2); Alkaline Phosphatase 87 U/L (39-117); Bilirubin,Direct 0.3 mg/dL (0.0-0.3); Blood Urea Nitrogen 59 mg/dl (8-23); Gamma Glutamyl Transpeptidase 102 U/L (8-61); Magnesium 1.8 mg/dL (1.6-2.5); Uric Acid 6.8 mg/dL (2.5-8.0)
[2017-02-20 22:06] LABS: Basophils # (Auto) 0 K/mcL (0.0-0.3); Basophils % (Auto) 0 % (0.0-2.0); Eosinophils # (Auto) 0 K/mcL (0.0-0.7); Eosinophils % (Auto) 0 % (0.0-7.0); Granulocytes % (Auto) 92.1 % (38.0-78.0); Lymphocytes # (Auto) 0.1 K/mcL (1.5-4.8); Lymphocytes % (Auto) 2.2 % (15.5-49.0); Mean Cell Volume 110.2 fL (80.0-100.0); Mean Corpuscular HGB Conc 33.3 g/dL (31.0-36.0); Mean Corpuscular Hemoglobin 36.8 pg (26.0-34.0); Monocytes # (Auto) 0.3 K/mcL (0.1-0.9); Monocytes % (Auto) 5.7 % (1.0-12.0); Platelet Count 87 K/mcL (140-440); RBC 2.55 M/mcL (4.50-5.90); Red Cell Distribution Width 27.5 % (11.5-14.5)
[2017-02-20] MEDS ORDERED: ASPIRIN 325 MG ENTERIC COATED TABLET PO ONE ×2 (22:07→22:37)
[2017-02-20] MEDS ORDERED: INSULIN LISPRO 1 UNIT/0.01 ML UNIT SQ ONE (22:45)
[2017-02-21] MEDS: IPRATROPIUM/ALBUTEROL 3 ML AMPUL.NEB NEB SCH ×7 (00:02→22:42)
[2017-02-21 05:00] LABS: ALT/SGPT 12 U/l (0-40); Albumin 3.8 gm/dL (3.2-5.2); Albumin/Globulin Ratio 1.9 (1.0-2.3); Alkaline Phosphatase 81 U/L (39-117); Bilirubin,Direct 0.3 mg/dL (0.0-0.3); Blood Urea Nitrogen 62 mg/dl (8-23); Gamma Glutamyl Transpeptidase 96 U/L (8-61); Magnesium 1.8 mg/dL (1.6-2.5); Uric Acid 7.4 mg/dL (2.5-8.0)
[2017-02-21 05:30] LABS: Basophils # (Auto) 0 K/mcL (0.0-0.3); Basophils % (Auto) 0 % (0.0-2.0); Eosinophils # (Auto) 0 K/mcL (0.0-0.7); Eosinophils % (Auto) 0 % (0.0-7.0); Granulocytes % (Auto) 86.1 % (38.0-78.0); Lymphocytes # (Auto) 0.2 K/mcL (1.5-4.8); Lymphocytes % (Auto) 4.1 % (15.5-49.0); Mean Corpuscular HGB Conc 32.7 g/dL (31.0-36.0); Mean Corpuscular Hemoglobin 36.6 pg (26.0-34.0); Monocytes # (Auto) 0.5 K/mcL (0.1-0.9); Monocytes % (Auto) 9.8 % (1.0-12.0); Platelet Count 91 K/mcL (140-440); RBC 2.47 M/mcL (4.50-5.90); Red Cell Distribution Width 27.1 % (11.5-14.5)
[2017-02-21] MEDS: INSULIN LISPRO 1 UNIT/0.01 ML UNIT SQ SCH ×4 (06:58→20:32)
[2017-02-21] MEDS: PANTOPRAZOLE 40 MG TABLET PO SCH (07:01)
[2017-02-21] MEDS ORDERED: PANTOPRAZOLE 40 MG TABLET PO SCH (07:30)
[2017-02-21] MEDS: predniSONE 20 MG TABLET PO SCH (07:31)
[2017-02-21] MEDS: CALCIUM ACETATE 667 MG CAPSULE PO SCH (07:31)
[2017-02-21] MEDS: POTASSIUM CHLORIDE 10 MEQ TABLET PO SCH (07:32)
[2017-02-21] MEDS: METOLAZONE 2.5 MG TABLET PO SCH (07:32)
--- NOTE | 2017-02-21 07:47 | XRay Report ---
INDICATION: Dyspnea TECHNIQUE: AP chest x-ray,semi upright COMPARISON: Previous chest x-rays dated 02/17/2017, 01/16/2017, 05/30/2015, 04/21/2008 FINDINGS:Interval placement of a large caliber right central venous catheter. Catheter tip is somewhat difficult to visualize but appears to be in the distal superior vena cava. There is no pneumothorax. Previous median sternotomy. There is cardiomegaly. Bilateral pleural effusions. No definite pulmonary edema. No new focal pulmonary parenchymal infiltrate. Allowances are made for differences in technique there is no definite interval change since 02/17/2017 IMPRESSION: 1. Cardiomegaly and bilateral pleural effusions. 2. No definite pulmonary edema. No acute parenchymal infiltrate. No interval change since 02/17/2017 3. Right central venous catheter with its tip in the superior vena cava. No pneumothorax Interpreted and Authenticated by: Franklyn Jansen 02/21/17
[2017-02-21] MEDS ORDERED: FUROSEMIDE 80 MG TABLET PO SCH ×2 (08:00)
[2017-02-21] MEDS ORDERED: CALCIUM ACETATE 667 MG CAPSULE PO SCH (08:00)
[2017-02-21] MEDS ORDERED: predniSONE 20 MG TABLET PO SCH (08:00)
[2017-02-21] MEDS ORDERED: POTASSIUM CHLORIDE 10 MEQ TABLET PO SCH (08:00)
[2017-02-21] MEDS ORDERED: METOLAZONE 2.5 MG TABLET PO SCH ×2 (08:30)
[2017-02-21] MEDS ORDERED: COLCHICINE 0.6 MG TABLET PO SCH ×2 (09:00)
[2017-02-21] MEDS ORDERED: FLUTICASONE PROPIONATE SPRAY.NAS NS SCH (09:00)
[2017-02-21] MEDS ORDERED: VITAMIN D3 1,000 UNIT TABLET PO SCH (09:00)
[2017-02-21] MEDS ORDERED: MAGNESIUM OXIDE 400 MG TABLET PO SCH (09:00)
[2017-02-21] MEDS ORDERED: ENOXAPARIN 40 MG/0.4 ML SYRINGE SQ SCH (09:00)
[2017-02-21] MEDS ORDERED: ALLOPURINOL 100 MG TABLET PO SCH (09:00)
[2017-02-21] MEDS ORDERED: LEVOFLOXACIN 750 MG/150 ML BAG IV SCH ×2 (09:00)
[2017-02-21] MEDS: FLUTICASONE PROPIONATE SPRAY.NAS NS SCH (09:23)
[2017-02-21] MEDS: ALLOPURINOL 100 MG TABLET PO SCH (09:24)
[2017-02-21] MEDS: ENOXAPARIN 40 MG/0.4 ML SYRINGE SQ SCH (09:24)
[2017-02-21] MEDS: VITAMIN D3 1,000 UNIT TABLET PO SCH (09:24)
[2017-02-21] MEDS: MAGNESIUM OXIDE 400 MG TABLET PO SCH (09:24)
[2017-02-21] MEDS: LATANOPROST OPHTH DROPS 2.5ML BOTTLE OD SCH ×2 (09:26→20:06)
[2017-02-21] MEDS ORDERED: IOPAMIDOL 100 ML BOTTLE IV ONE (11:00)
[2017-02-21] MEDS ORDERED: POLYETHYLENE GLYCOL 3350 17 GM PACKET PO ONE (11:10)
--- NOTE | 2017-02-21 11:19 | Cat Scan Report ---
CLINICAL INFORMATION: Dyspnea. History of congestive heart failure. Elevated d-dimer. COMPARISON: Noncontrast enhanced chest CT scan dated 02/18/2017 TECHNIQUE: Axial images obtained through the chest. 80 mL intravenous contrast was administered, and scanning was performed during pulmonary arterial phase. Sagittally and coronally reformatted images were obtained. MIP reformatted images. FINDINGS: Negative pulmonary CTA. No pulmonary embolism. Main pulmonary artery, left pulmonary artery, right pulmonary artery are negative. No lobar, segmental, or subsegmental abnormalities. As described previously the main pulmonary artery is markedly dilated. Cross-sectional diameter measures approximately 5 cm. This is consistent with pulmonary arterial hypertension. Both the right and left pulmonary arteries are dilated. There is cardiomegaly. No pericardial effusion. There is extensive calcified atherosclerotic disease. Patient has undergone previous median sternotomy and coronary artery bypass procedure. There are bilateral pleural effusions, unchanged. Again demonstrated is focal parenchymal density at the right lung base which may be atelectasis. This is stable. No new parenchymal infiltrate. No bronchiectasis. No pneumothorax. There are nonspecific mediastinal lymph nodes, unchanged. No axillary adenopathy. There is a small amount of free intraperitoneal fluid. Patient is on dialysis. I am not certain whether he is receiving hemodialysis or peritoneal dialysis. No focal intrahepatic abnormality. Liver may be slightly nodular suggesting possible cirrhosis. Clinical correlation is necessary. IMPRESSION: 1. Negative pulmonary CTA. No pulmonary embolism 2. Bilateral pleural effusions are unchanged. No acute pulmonary parenchymal abnormalities 3. Dilatation of the main pulmonary artery, as well as the right and left pulmonary arteries consistent with pulmonary arterial hypertension. 4. Cardiomegaly 5. Free intraperitoneal fluid. This may be ascites or may be secondary to peritoneal dialysis Interpreted and Authenticated by: Franklyn Jansen 02/21/17
[2017-02-21] MEDS ORDERED: WARFARIN 7.5 MG TABLET PO ONE (14:00)
[2017-02-21] MEDS ORDERED: WARFARIN 5 MG TABLET PO SCH ×2 (14:00)
[2017-02-21] MEDS ORDERED: FUROSEMIDE 100 MG/10 ML VIAL IV SCH (14:00)
[2017-02-21] MEDS ORDERED: DIGOXIN 125 MCG TABLET PO SCH ×2 (14:00)
--- NOTE | 2017-02-21 15:48 | Nephrology Progress Note ---
Subjective Patient information: Note initiated : 02/21/17 at 3:46 pm Service Date, if different from initiated Date: [] Patient: Jakob Lancaster 86 y/o M admitted on 02/17/17 for Shortness of Breath/CHF. Chief Complaint: [] Principal diagnosis: CHF Interval history: Patient worsening SOB last night extensive work up done shows no changes He c/o anxiety from multiple ongoing issues he denies CP, dizziness He has no GI issues he still has LE edema Pertinent ROS: as above Objective - Vital Signs Vital signs: Vital Signs Temp Pulse Pulse Resp BP BP Pulse Ox 02/21/17 15:28 78 137/78 02/21/17 14:48 93 H 141/72 02/21/17 14:34 98 F 18 133/61 93 02/21/17 14:21 88 124/77 02/21/17 13:58 71 103/66 02/21/17 13:28 88 123/60 02/21/17 13:00 98.6 F 94 H 126/68 02/21/17 11:51 85 18 02/21/17 11:25 98 F 18 123/59 93 02/21/17 07:17 86 18 95 02/21/17 06:42 98.2 F 18 118/62 93 02/21/17 04:15 98.6 F 02/21/17 03:52 99.0 F H 86 18 128/55 97 02/21/17 00:20 98.5 F 77 18 98 02/21/17 00:10 75 16 02/20/17 20:40 85 128/74 96 02/20/17 20:08 76 16 02/20/17 20:03 99 02/20/17 19:50 98.1 F 74 18 119/59 98 02/20/17 15:50 98.7 F 18 130/84 100 Intake and Output 02/21/17 02/21/17 02/21/17 05:59 13:59 21:59 Intake Total 360 / 360 200 / 200 360 / 360 Output Total 760 / 760 350 / 350 Balance -400 / -400 -150 / -150 360 / 360 Intake: Oral 360 / 360 200 / 200 360 / 360 Output: Void Amount 760 / 760 350 / 350 Other: Weight 171 lb Intake & Output: Intake & Output 02/21/17 02/21/17 02/21/17 05:59 13:59 21:59 Intake Total 360 / 360 200 / 200 360 / 360 Output Total 760 / 760 350 / 350 Balance -400 / -400 -150 / -150 360 / 360 Weight 171 lb Intake: Oral 360 / 360 200 / 200 360 / 360 Output: Void Amount 760 / 760 350 / 350 - General Appearance General appearance: appears started age, chronically ill EENT: mucous membranes moist Neck: no JVD Respiratory: clear Cardiology: no rub, edema, irregular rhythm Gastrointestinal: no tenderness, no guarding Integumentary: no rash, warm and dry Neurologic: alert and oriented x3 Musculoskeletal: no cyanosis, no clubbing Psychiatric: mood/affect appropriate - Lab 02/21/17 04:00 02/21/17 04:00 Most recent lab results Calcium 8.9 mg/dl (8.6-10.4) 02/21/17 04:00 Phosphorus 2.8 mg/dL (2.7-4.5) 02/21/17 04:00 Magnesium 1.8 mg/dL (1.6-2.5) 02/21/17 04:00 Assessment and Plan (1) Acute CHF (congestive heart failure) cardiorenal syndrome/CHF patient willbe dialysed today mainly to get the contrast agent dialysed off i an attempt to preserve his residual renal function Will also attempt 2-3l uf given persistent e/o fluid excess on exam HD for 3.5 hrs using revaclear dialyser, 3k/2.5 CA DIALYSATE, UF goal of 2-3L as tolerated next hd on wednesday agrees to go to SNF has issues with anxiety, discussed prognosis at length will follow Status: Acute (2) Chronic kidney disease, stage IV (severe) Status: Chronic (3) Anemia Status: Chronic Qualifiers: 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
--- NOTE | 2017-02-21 17:21 | Internal Med Progress Note ---
Medical - PN: Subj Patient information: Note initiated : 02/21/17 at 5:17 pm Service Date, if different from initiated Date: [] Patient: Jakob Lancaster a 86 y/o M admitted on 02/17/17 for Shortness of Breath/CHF. Chief Complaint: [] Interval history: Mr. Lancaster is a 86 year old Male with h/o chf, cor pulmonale, presents to the hospital as a direct admit from nephrology clinic for CHF exacerbation. The patient has h/o CHF has been admitted 3 times over the last 6 weeks for pneumonia and chf exacerbation at outside facility. The patient was discharged I believe 10 days ago, but has not been completely asymptomatic. He notes that he has been having progressive weakenss and decreased effort tolerence. He is being more short of breath with worsening edema in his lower extremities, which now extend above his knees and involve the depended parts. he was therefore sent from the renal clinic for admission and diuresis the patient admits to cough and clear sputum, no fever, but hayes have some chills , has been treated x 2 for recent pneumonia, has h/o mssa and bronchisepta both were molina sensitive as per hospitalization in january. he had pleural tap done during the last hospitalization, not sure if this fluid was infected. The patient has no other issues reported. daugthers in the room, patient is DNR. February 18 The patient seen examined, noted that he had some response to IV lasix, but not as much as expected, he had a CT chest done which showed left pleural effusion greater than right. plan to get [facility] Patient is voiding ok, recieved one dose of chlorothiazide IV today, will see how he responds He was short of breath more so than yesterday, was placed on bipap, and duonebs and steroids starged ABG done shows PH 7.45/37/95, lac 0.9 Patient nehprologist plans to initiate dialysis will hold off on resuming coumadin at this time. The patient has shortness of breath but otherwise does not endorse any other complaints. February 19 patient doing well, no acute overnight issues did not tolerate bipap well but otherwise ok had Tunneled cath placed this AM, HD started by nephrology February 20 Patient seen examined, lying comfortably in bed, flat no complaints, slept well, ate breakfast, toleated well, no nausea or abdominal pain patient had first session of HD yesterday, seems to have done well, plan for another session today Not needing bipap any more coumadin resumed February 21 Patient seen examiend ovenright issues reviewed, sob, workup neg, pt likely has anxiety issues and when he gets upset he becomes osb CTA neg, HD planned after CTA patient to continue on cpap, and oral diuretics try to remove more fluid if possible during HD Pertinent ROS: Denies headache, dizziness Denies chest pain, palpitations no cough, but sob present intermittent. Denies abdominal pain, nausea or vomiting. - Constitutional Vitals: Vital Signs Temp Pulse Resp BP Pulse Ox 97 F 68 18 121/69 93 02/21/17 16:12 02/21/17 16:12 02/21/17 14:34 02/21/17 16:12 02/21/17 14:34 Period Temp Pulse Resp BP Sys/Woods Pulse Ox Last 24 Hr 97 F-99.0 F 68-94 16-18 103-141/55-78 93-99 Intake and Output 02/21/17 02/21/17 02/21/17 05:59 13:59 21:59 Intake Total 360 / 360 200 / 200 360 / 360 Output Total 760 / 760 350 / 350 2500 / 2500 Balance -400 / -400 -150 / -150 -2140 / -2140 Weight 171 lb Intake & Output: Intake & Output 02/21/17 02/21/17 02/21/17 05:59 13:59 21:59 Intake Total 360 / 360 200 / 200 360 / 360 Output Total 760 / 760 350 / 350 2500 / 2500 Balance -400 / -400 -150 / -150 -2140 / -2140 Weight 171 lb Intake: Oral 360 / 360 200 / 200 360 / 360 Output: Void Amount 760 / 760 350 / 350 500 / 500 Hemodialysis UF 1999 Exam: Constitutional; Afebrile, cooperative, alert, not in distress. Eyes- No icterus, , No periorbital swelling Ears- Ext ear normal, hearing normal to conversation. Neck- Midline trachea, supple Respiratory system: Air Entry equal on both sides, No crackles or wheezing, no rhonchi. CVS- Rate rhythm irregular, S1,S2 heard, no gallop, no rub. Abdomen- Soft nontender abdomen, no organomegaly, no tenderness, no guarding or rigidity, [employer]FT [employer]ER- AOOx3, moving all extremities, no gross focal deficit noted. Medical - PN: Obj Da - Labs CBC & Chem 7: 02/21/17 04:00 02/21/17 04:00 Labs: Abnormal Lab Results 02/21/17 02/21/17 02/21/17 04:00 04:00 04:00 WBC RBC 2.47 L Hgb 9.1 L Hct 27.7 L MCV 112.0 H MCH 36.6 H RDW 27.1 H Plt Count 91 L MPV 12.6 H Gran % 86.1 H Lymph % (Auto) 4.1 L Lymph # (Auto) 0.2 L [place] # (Auto) PT INR D-Dimer Chloride Anion Gap BUN 62 H Creatinine 1.8 H Glucose 153 H Uric Acid Direct Bilirubin GGT 96 H Troponin T 0.16 H* Total Protein 5.8 L Globulin 2.0 L 02/21/17 02/20/17 02/20/17 04:00 20:50 20:50 WBC RBC Hgb Hct MCV MCH RDW Plt Count MPV Gran % Lymph % (Auto) Lymph # (Auto) [place] # (Auto) PT 18.1 H INR 1.5 H D-Dimer Chloride 94 L Anion Gap 17.0 H BUN 59 H Creatinine 1.9 H Glucose 213 H Uric Acid Direct Bilirubin GGT 102 H Troponin T 0.15 H* Total Protein Globulin 2.0 L 02/20/17 02/20/17 02/20/17 20:50 20:50 04:07 WBC RBC 2.55 L 2.52 L Hgb 9.4 L 9.2 L Hct 28.1 L 27.8 L MCV 110.2 H 110.3 H MCH 36.8 H 36.5 H RDW 27.5 H 27.1 H Plt Count 87 L 103 L MPV 10.6 H 12.7 H Gran % 92.1 H 88.4 H Lymph % (Auto) 2.2 L 3.2 L Lymph # (Auto) 0.1 L 0.2 L [place] # (Auto) PT INR D-Dimer 2.16 H Chloride Anion Gap BUN Creatinine Glucose Uric Acid Direct Bilirubin GGT Troponin T Total Protein Globulin 02/20/17 02/20/17 02/19/17 04:07 04:07 03:03 WBC 3.4 L RBC 2.52 L Hgb 9.1 L Hct 27.8 L MCV 110.6 H MCH 36.3 H RDW 27.3 H Plt Count 108 L MPV 13.4 H Gran % 95.4 H Lymph % (Auto) 3.4 L Lymph # (Auto) 0.1 L [place] # (Auto) 0 L PT 18.7 H INR 1.5 H D-Dimer Chloride Anion Gap BUN 93 H Creatinine 2.2 H Glucose 186 H Uric Acid 10.1 H Direct Bilirubin GGT 95 H Troponin T Total Protein 5.6 L Globulin 02/19/17 02/19/17 03:03 03:03 WBC RBC Hgb Hct MCV MCH RDW Plt Count MPV Gran % Lymph % (Auto) Lymph # (Auto) [place] # (Auto) PT 17.5 H INR 1.4 H D-Dimer Chloride Anion Gap 17.0 H BUN 111 H* Creatinine 2.5 H Glucose 205 H Uric Acid 12.1 H Direct Bilirubin 0.4 H GGT 102 H Troponin T Total Protein Globulin 2.1 L Meds: Medications Acetaminophen (Tylenol) 650 mg PO Q6HP PRN PRN Reason: PAIN/FEVER > 101 Albuterol/Ipratropium (Duoneb) 3 ml NEB Q4HRT [facility] Last Admin: 02/21/17 14:56 Dose: Not Given Allopurinol (Zyloprim) 100 mg PO QDAY [facility] Last Admin: 02/21/17 09:24 Dose: 100 mg Brimonidine Tartrate (Alphagan P Ophth Drops) 1 gtt OU HS [facility] Calcium Acetate (Phoslo) 667 mg PO [facility] Last Admin: 02/21/17 07:31 Dose: 667 mg Dextrose (Dextrose 50%) 0 ml IV UD PRN PRN Reason: Hypoglycemia Diagnostic Test (Pha) (Accu-Chek) 1 each FS ACHS [facility] Last Admin: 02/21/17 16:59 Dose: 1 each Digoxin (Lanoxin) 62.5 mcg PO Q48H [facility] Last Admin: 02/21/17 16:58 Dose: 62.5 mcg Digoxin (Lanoxin) 125 mcg PO Q48H [facility] Enoxaparin Sodium (Lovenox) 40 mg SQ DAILY [facility] Last Admin: 02/21/17 09:24 Dose: 40 mg Fluticasone Propionate (Flonase) 1 spray NS QDAY [facility] Last Admin: 02/21/17 09:23 Dose: 1 spray Furosemide (Lasix) 80 mg IV Q12 [facility] Glucose (Insta-Glucose) 15 gm PO PRN PRN PRN Reason: Hypoglycemia Levofloxacin (Levaquin) 750 mg in 150 mls @ 100 mls/hr IV Q48H [facility] Last Admin: 02/21/17 09:23 Dose: 100 mls/hr Sodium Chloride (Sodium Chloride 0.45%) 1,000 mls @ 10 mls/hr IV .Q24H [facility] Last Admin: 02/20/17 22:20 Dose: Not Given Insulin Human Lispro (Humalog) 0 unit SQ ACHS [facility] PRN Reason: Protocol Last Admin: 02/21/17 17:02 Dose: 2 unit Latanoprost (Xalatan Ophth Drops) 1 gtt OD BID [facility] Last Admin: 02/21/17 09:26 Dose: 1 gtt Magnesium Hydroxide (Milk Of Magnesia) 30 ml PO DAILYP PRN PRN Reason: Constipation Magnesium Oxide (Magnesium Oxide) 400 mg PO DAILY [facility] Last Admin: 02/21/17 09:24 Dose: 400 mg Metolazone (Zaroxolyn) 2.5 mg PO DAILY@0830 [facility] Last Admin: 02/21/17 07:32 Dose: 2.5 mg Naloxone HCl (Narcan) 0.1 mg IV Q2MIN PRN PRN Reason: Opiate Reversal Ondansetron HCl (Zofran) 4 mg IV Q4HP PRN PRN Reason: Nausea And Vomiting Oxycodone/Acetaminophen (Percocet 5-325 Mg) 1 tab PO Q4HP PRN PRN Reason: Pain [facility] Last Admin: 02/21/17 07:01 Dose: 40 mg Brinzolamide [Azopt] 1 dose OU BID [facility] Last Admin: 02/21/17 09:25 Dose: 1 dose Polyethylene Glycol (Miralax) 17 gm PO DAILY [facility] Potassium Chloride (Kdur) 10 meq PO [facility] Last Admin: 02/21/17 07:32 Dose: 10 meq Prednisone (Prednisone) 40 mg PO [facility] Stop: 02/24/17 07:59 Last Admin: 02/21/17 07:31 Dose: 40 mg Promethazine HCl (Phenergan) 12.5 mg IV Q6HP PRN PRN Reason: Nausea And Vomiting Ropinirole HCl (Requip) 0.5 mg PO HS [facility] Tamsulosin HCl (Flomax) 0.4 mg PO HS [facility] Trazodone HCl (Desyrel) 50 mg PO QHS [facility] Vitamin D (Vitamin D3) 1,000 unit PO DAILY [facility] Last Admin: 02/21/17 09:24 Dose: 1,000 unit Warfarin Sodium (Coumadin Per Pharmacy) 1 order PO UD [facility] Medical - PN: A/P - Time Spent With Patient Total time spent is greater than 50% in coordination of care (as documented) at patient's floor/unit and/or counseling patient: - Narrative A/P Narrative: A/P Acute systolic and Diastolic heart failure- Clinically improving, patient on Iv lasix again given sob last night, but will keep bid. Acute hypoxic respiratory failure/ Chronic Resp failure: Still needs some oxygen, but off bipap, continue oxygen supplementation to keep osat > 90 % Acute anxiety/ panic attacks: REsulting in acute sob, will mointor for now Chronic elevation of troponin: due to esrd status, as well as chr chf. Acute cor pulmonale- chr issue, aggresive fluid removal via HD and using diuresis CAD/ PVD- Continue home medications, ESRD on hemodialysis, HD initiated yesterday, tolerated well, nephrology following Anemia, secondary to chf and myelodysplastic syndrome- Hb stable needs darbapoitin and granix, managed by hematology Thrombocytopenia- Due to MDS stable AFib on Coumadin,- Rate stable, coumadin resumed, also has a cardiac valve replaced, inr still sub therapeutic. DM- glucose ok, on sliding scale insulin, continue same, anticipate some high readings due to use of steroids, HTN- bp stable HLD- on statin. H/o Recent herpes infeciton. s/p acyclovir Leucocytosis- mildly elevated procalcitonin, on levofloxacin, doing well, continue 7-10 datys COPD- on steroids and duonebs, no wheeze on exam. DVT lovenox sq, till INR is therapeutic. Diet cardiac, renal , diabetic DNR OT/PT/ ST consult Medical - PN: Qual - VTE Deep Vein Thrombosis/Pulmonary Embolism Present on Admission: No
[2017-02-21] MEDS: FUROSEMIDE 100 MG/10 ML VIAL IV SCH (20:04)
[2017-02-21] MEDS: 0.45 % SODIUM CHLORIDE 1,000 ML IV SCH (20:06)
[2017-02-21] MEDS ORDERED: BRIMONIDINE OPHTH DROPS 1 GTT BOTTLE 5ML OU SCH (21:00)
[2017-02-21] MEDS ORDERED: rOPINIRole 0.25 MG TABLET PO SCH (21:00)
[2017-02-21] MEDS ORDERED: traZODone HCL 50 MG TABLET PO SCH (21:00)
[2017-02-21] MEDS ORDERED: TAMSULOSIN 0.4 MG CAPSULE PO SCH (21:00)
[2017-02-22] MEDS: IPRATROPIUM/ALBUTEROL 3 ML AMPUL.NEB NEB SCH ×3 (03:58→11:09)
[2017-02-22 05:51] LABS: ALT/SGPT 12 U/l (0-40); Albumin 3.7 gm/dL (3.2-5.2); Albumin/Globulin Ratio 1.9 (1.0-2.3); Alkaline Phosphatase 81 U/L (39-117); Bilirubin,Direct 0.3 mg/dL (0.0-0.3); Blood Urea Nitrogen 40 mg/dl (8-23); Gamma Glutamyl Transpeptidase 105 U/L (8-61); Magnesium 1.8 mg/dL (1.6-2.5); Uric Acid 5.6 mg/dL (2.5-8.0)
[2017-02-22 06:40] LABS: Basophils # (Auto) 0 K/mcL (0.0-0.3); Basophils % (Auto) 0 % (0.0-2.0); Eosinophils # (Auto) 0 K/mcL (0.0-0.7); Eosinophils % (Auto) 0.3 % (0.0-7.0); Granulocytes % (Auto) 86.2 % (38.0-78.0); Lymphocytes # (Auto) 0.2 K/mcL (1.5-4.8); Lymphocytes % (Auto) 4.1 % (15.5-49.0); Mean Cell Volume 111.9 fL (80.0-100.0); Mean Corpuscular HGB Conc 32.9 g/dL (31.0-36.0); Mean Corpuscular Hemoglobin 36.8 pg (26.0-34.0); Monocytes # (Auto) 0.5 K/mcL (0.1-0.9); Monocytes % (Auto) 9.4 % (1.0-12.0); Platelet Count 96 K/mcL (140-440); RBC 2.56 M/mcL (4.50-5.90); Red Cell Distribution Width 27.3 % (11.5-14.5)
[2017-02-22] MEDS: PANTOPRAZOLE 40 MG TABLET PO SCH (07:26)
[2017-02-22] MEDS: INSULIN LISPRO 1 UNIT/0.01 ML UNIT SQ SCH ×2 (07:27→11:25)
[2017-02-22] MEDS: CALCIUM ACETATE 667 MG CAPSULE PO SCH (08:34)
[2017-02-22] MEDS: LATANOPROST OPHTH DROPS 2.5ML BOTTLE OD SCH (08:40)
[2017-02-22] MEDS: ENOXAPARIN 40 MG/0.4 ML SYRINGE SQ SCH (08:42)
[2017-02-22] MEDS: predniSONE 20 MG TABLET PO SCH (08:43)
[2017-02-22] MEDS: POTASSIUM CHLORIDE 10 MEQ TABLET PO SCH (08:43)
[2017-02-22] MEDS: FLUTICASONE PROPIONATE SPRAY.NAS NS SCH (08:44)
[2017-02-22] MEDS: METOLAZONE 2.5 MG TABLET PO SCH (08:44)
[2017-02-22] MEDS: VITAMIN D3 1,000 UNIT TABLET PO SCH (08:44)
[2017-02-22] MEDS: ALLOPURINOL 100 MG TABLET PO SCH (08:44)
[2017-02-22] MEDS: MAGNESIUM OXIDE 400 MG TABLET PO SCH (08:44)
[2017-02-22] MEDS ORDERED: POLYETHYLENE GLYCOL 3350 17 GM PACKET PO SCH (09:00)
[2017-02-22] MEDS: FUROSEMIDE 100 MG/10 ML VIAL IV SCH (09:30)
--- NOTE | 2017-02-22 10:06 | Discharge Summary ---
Medical - DS: Prov Patient information: Note initiated : 02/22/17 at 10:00 am Service Date, if different from initiated Date: [] Patient: Jakob Lancaster 86 y/o M admitted on 02/17/17 for Shortness of Breath/CHF. Chief Complaint: [] Date of admission: 02/17/17 15:45 Discharge date: 02/22/17 Primary care physician: Juaquin Alejandra Admitting clinician: Jamel Gonzalez Discharging clinician: Jamel Gonzalez Medical - DS: Meds - Discharge Medications Prescriptions: Furosemide [Lasix] 80 mg PO BID #60 tab Metolazone [Zaroxolyn] 2.5 mg PO DAILY #30 tab predniSONE [Prednisone] 40 mg PO [facility] #3 tab Active and Home Medications: Home Medications brinzolamide 1 % eye drops,suspension 1 drp OU BID ml 09/27/14 [History Confirmed 02/17/17 Last Taken 02/16/17 21:00] tamsulosin 0.4 mg capsule 0.4 mg PO HS cap 09/27/14 [History Confirmed Last Taken 02/16/17 21:00] cholecalciferol (vitamin D3) 1,000 unit capsule 1,000 unit PO QDAY cap [History Confirmed 02/17/17 Last Taken 02/16/17 08:00] Brimonidine Ophth Drops [Alphagan P Ophth Drops] 1 gtt OU HS 05/28/15 [History Confirmed 02/17/17 Last Taken 02/16/17 21:00] Latanoprost Ophth Drops [Xalatan Ophth Drops] 1 gtt OD BID 05/28/15 [History Confirmed 02/17/17 Last Taken 02/16/17 21:00] potassium chloride ER 10 mEq capsule,extended release 10 meq PO QDAY #30 cap [Rx Confirmed 02/17/17 Last Taken 02/16/17 08:00] verapamil ER (SR) 120 mg tablet,extended release 120 mg PO QDAY 09/29/16 [ History Confirmed 02/17/17 Last Taken 02/16/17 08:00] zolpidem 5 mg tablet 5 mg PO HS PRN #14 tab 01/27/17 [Rx Confirmed 02/17/17 Last Taken 02/16/17 21:00] Digoxin [Lanoxin] 125 mcg PO Q48 02/17/17 [History Confirmed 02/17/17 Last Taken 02/16/17 08:00] Furosemide [Lasix] 40 mg PO 1600 02/17/17 [History Confirmed 02/17/17 Last Taken 02/16/17 16:00] Ipratropium/Albuterol [Duoneb] 3 ml NEB QIDP 02/17/17 [History Confirmed Last Taken 02/16/17 21:00] Magnesium Oxide [Magnesium] 250 mg PO DAILY 02/17/17 [History Confirmed Last Taken 02/16/17 08:00] Metolazone [Zaroxolyn] 2.5 mg PO MOTH 02/17/17 [History Confirmed 02/17/17 Last Taken 02/15/17 08:00] allopurinol 100 mg tablet 100 mg PO QDAY 02/17/17 [History Confirmed 02/17/17 Last Taken 02/16/17 08:00] bumetanide 2 mg tablet 2 mg PO QDAY 02/17/17 [History Confirmed 02/17/17 Last Taken 02/16/17 08:00] calcium acetate 667 mg tablet 667 mg PO QDAY tab 02/17/17 [History Confirmed Last Taken 02/16/17 08:00] colchicine 0.6 mg tablet 0.6 mg PO QDAY 02/17/17 [History Confirmed 02/17/17 Last Taken 02/16/17 09:00] digoxin 125 mcg tablet 62.5 mg PO Q48 02/17/17 [History Confirmed 02/17/17 Last Taken 02/15/17 08:00] fluconazole 100 mg tablet 200 mg PO QDAY tab 02/17/17 [History Confirmed Last Taken 02/16/17 09:00] fluticasone 50 mcg/actuation nasal spray,suspension 1 spray INTRANASAL QDAY 11/26 [History Confirmed 02/17/17 Last Taken 02/16/17 09:00] furosemide 80 mg tablet 80 mg PO DAILY 02/17/17 [History Confirmed 02/17/17 Last Taken 02/16/17 09:00] insulin aspart 100 unit/mL subcutaneous solution See Label Instructions SUB-Q ACHS 02/17/17 [History Confirmed 02/17/17 Last Taken Unknown] metoprolol succinate ER 25 mg tablet,extended release 24 hr 25 mg PO QDAY [History Confirmed 02/17/17 Last Taken 02/16/17 08:00] multivitamin,ky-fbuj-mzdldlxe tablet 1 tab PO QDAY 02/17/17 [History Confirmed 02/17/17 Last Taken 02/16/17 08:00] pantoprazole 40 mg tablet,delayed release 40 mg PO QDAY 02/17/17 [History Confirmed 02/17/17 Last Taken 02/16/17 09:00] polyethylene glycol 3350 17 gram/dose oral powder 17 g PO QDAY g 02/17/17 [ History Confirmed 02/17/17 Last Taken 02/16/17 08:00] trazodone 50 mg tablet 50 mg PO QHS 02/17/17 [History Confirmed 02/17/17 Last Taken 02/16/17 21:00] warfarin 5 mg tablet 5 mg PO QDAY 02/17/17 [History Confirmed 02/17/17 Last Taken 02/16/17 12:00] Medical - DS: Hosp Hospital course: Mr. Lancaster is a 86 year old Male with h/o chf, cor pulmonale, presents to the hospital as a direct admit from nephrology clinic for CHF exacerbation, The patient has h/o CHF has been admitted 3 times over the last 6 weeks for pneumonia and chf exacerbation at outside facility. The patient was discharged I believe 10 days ago, but has not been completely asymptomatic. He notes that he has been having progressive weakenss and decreased effort tolerence. He is being more short of breath with worsening edema in his lower extremities, which now extend above his knees and involve the depended parts. he was therefore sent from the renal clinic for admission and diuresis the patient admits to cough and clear sputum, no fever, but hayes have some chills , has been treated x 2 for recent pneumonia, has h/o mssa and bronchisepta both were molina sensitive as per hospitalization in january. he had pleural tap done during the last hospitalization, not sure if this fluid was infected. Patient was admitted tot hospital for further management CHF/ REnal failure with fluid overload: Treated with IV lasix initially and then later on a lasix drip, the patient did respond well, however his bun remained > 100, given his advanced renal failure, the patient was eventually palced on dialysis. He has a right IJ tunneled hemodialysis catheter. The patient was initiated on HD while in the hospital and he seems to have tolerated the procedure well. The patient will be discharged home on twice weekly dialysis, he will also need lasix 80mg bid and metolozone 2.5mg once daily on non dialysis days. Shortness of breath: The patient has intermittent acute episodes of shortness of breath, initially thought due to his chf, we did CTPA which is neg, and we noted that he had these spells without any changes in his fluid dynamics. This is likely secondary to anxiety. Patient admits that he has some anxiety surrounding this dialysis and overall health. The patient has questionable pna, had some leucocytosis, and some wheeze during exam. He was treated with levofloxacin and short term steroids for same. He will take prendisone for 3 more days. Patient has afib, on coumadin, INR was subtherapeutic on discharge. He will need to be followed up by PCP for inr check in 3 days February 18 The patient seen examined, noted that he had some response to IV lasix, but not as much as expected, he had a CT chest done which showed left pleural effusion greater than right. plan to get records for [facility] Patient is voiding ok, recieved one dose of chlorothiazide IV today, will see how he responds He was short of breath more so than yesterday, was placed on bipap, and duonebs and steroids starged ABG done shows PH 7.45/37/95, lac 0.9 Patient nehprologist plans to initiate dialysis will hold off on resuming coumadin at this time. The patient has shortness of breath but otherwise does not endorse any other complaints. February 19 patient doing well, no acute overnight issues did not tolerate bipap well but otherwise ok had Tunneled cath placed this AM, HD started by nephrology February 20 Patient seen examined, lying comfortably in bed, flat no complaints, slept well, ate breakfast, toleated well, no nausea or abdominal pain patient had first session of HD yesterday, seems to have done well, plan for another session today Not needing bipap any more coumadin resumed February 21 Patient seen examiend ovenright issues reviewed, sob, workup neg, pt likely has anxiety issues and when he gets upset he becomes osb CTA neg, HD planned after CTA, mildly elevated troponin is likely secodary to esrd and demand ischemia. patient to continue on cpap, and oral diuretics try to remove more fluid if possible during HD Discharge diagnosis: Renal failure, COPD exacerbation, Fluid overload - Time Spent with Patient Total time spent providing and/or coordinating discharge services: Greater than 30 minutes Medical - DS: Exam - Constitutional Vitals: Vital Signs Temp Pulse Pulse Resp BP BP Pulse Ox 02/22/17 08:00 97.6 F 81 20 120/65 95 02/22/17 04:30 97.6 F 74 20 128/63 96 02/22/17 01:23 120/56 02/21/17 22:51 98.0 F 71 20 131/69 97 02/21/17 22:48 78 16 02/21/17 20:41 98.3 F 90 18 112/69 98 02/21/17 20:00 98 02/21/17 18:55 72 16 02/21/17 18:49 99 02/21/17 16:12 97 F 68 121/69 02/21/17 15:28 78 137/78 02/21/17 14:48 93 H 141/72 02/21/17 14:34 98 F 18 133/61 93 02/21/17 14:21 88 124/77 02/21/17 13:58 71 103/66 02/21/17 13:28 88 123/60 02/21/17 13:00 98.6 F 94 H 126/68 02/21/17 11:51 85 18 02/21/17 11:25 98 F 18 123/59 93 Intake and Output 02/21/17 02/22/17 02/22/17 21:59 05:59 13:59 Intake Total 360 / 360 230 / 230 Output Total 2775 / 2775 450 / 450 Balance -2415 / -2415 -220 / -220 Intake: Oral 360 / 360 230 / 230 Output: Void Amount 775 / 775 450 / 450 Hemodialysis UF 1999 Other: Meal Dinner Breakfast Percent of Meal Consumed 75% 100% Feeding Ability Assist with Tray Set Up Weight 172 lb Additional comments: Constitutional; Afebrile, cooperative, alert, not in distress. Eyes- No icterus, , No periorbital swelling Ears- Ext ear normal, hearing normal to conversation. Neck- Midline trachea, supple Respiratory system: Air Entry equal on both sides, bibasilar crackles, improved from admission. CVS- Rate rhythm irregular, S1,S2 heard, no gallop, no rub. still has edema, but now only midway to the leg. Abdomen- Soft nontender abdomen, no organomegaly, no tenderness, no guarding or rigidity, CONSTRUCTION ESTIMATOR- AOOx3, moving all extremities, no gross focal deficit noted. Medical - DS: Data Labs on day of discharge: Labs from last 24 hours 02/22/17 02/22/17 02/22/17 04:28 04:28 04:28 WBC 5.5 RBC 2.56 L Hgb 9.4 L Hct 28.7 L MCV 111.9 H MCH 36.8 H MCHC 32.9 RDW 27.3 H Plt Count 96 L MPV 12.7 H Gran % 86.2 H Lymph % (Auto) 4.1 L [place] % (Auto) 9.4 Eos % (Auto) 0.3 Baso % (Auto) 0 Gran # 4.8 Lymph # (Auto) 0.2 L [place] # (Auto) 0.5 Eos # (Auto) 0 Baso # (Auto) 0 Differential Comment PT 18.0 H INR 1.4 H Sodium 135 Potassium 4.1 Chloride 97 Carbon Dioxide 29 Anion Gap 9.0 BUN 40 H Creatinine 1.8 H GFR Calculation 34 Glucose 140 H Uric Acid 5.6 Calcium 9.0 Phosphorus 2.1 L Magnesium 1.8 Total Bilirubin 0.8 Direct Bilirubin 0.3 GGT 105 H AST 11 ALT 12 Alkaline Phosphatase 81 Lactate Dehydrogenase 218 Total Protein 5.6 L Albumin 3.7 Globulin 1.9 L Albumin/Globulin Ratio 1.9 Triglycerides 98 Medical - DS: A/P - Patient/Caregiver Discharge Instructions Activity: as per physical therapy, increase activity as tolerated Diet: Cardiac, Renal/Consistent Carbs Additional Instructions: Follow up with PCP in 3 days for INR check Take anabiotics as prescribed. (levofloxacin 500mg every other day for 3 doses) Take prednisone 40mg once a day for 3 more days. Take lasix 80mg twice daily, you will take metolozone 2.5mg once daily 30mis before lasix every day, except on the day of dialysis. Follow up with Dr Contreras / nephrology. You will need Hemodialysis 2 times a week, this will be set up for you from nephrology Go to the ER if shortness of breath, chest pain or any other concerning symptom. - Follow up Plan Disposition: Home Health Service Prognosis: Fair Rehab Potential: Fair I certify that the patient requires SNF services: No Overall status at discharge: patient is progressing back to baseline Medical - DS: Qual - VTE Deep Vein Thrombosis/Pulmonary Embolism Present on Admission: No
[2017-02-22] MEDS ORDERED: WARFARIN 7.5 MG TABLET PO ONE (14:00)
[2017-02-22] MEDS ORDERED: DIGOXIN 125 MCG TABLET PO SCH ×2 (14:00)
== END 2017-02-22 12:59 | disposition home health service (06) | DRG 291 ==
LOC: ICU 15:45 → MEDSUR 02-20 18:44
PROVIDERS: ADMIT Internal Medicine; ATTEND Internal Medicine

== ENCOUNTER 2017-02-25 17:24 | Observation (INO) ==
--- NOTE | 2017-02-25 17:47 | Emergency Department Note ---
SOB HPI - General Chief Complaint: Shortness of Breath/Dyspnea Stated Complaint: shortness of breath, left arm numbness Time Seen by Provider: 02/25/17 17:27 Source: patient Mode of arrival: ambulatory Limitations: no limitations - History of Present Illness This is a new dialysis patient was supposed to receive dialysis was too short of breath and lethargic so sent to the emergency room. He is a DNR. He is lethargic and hard to get a history from. Reviewing old records shows that he has been admitted for congestive heart failure recently and fluid overloaded and required initiation of hemodialysis. - Related Data Home Medications Medication Instructions Recorded Confirmed brinzolamide 1 % eye 1 drp OU BID ml 09/27/14 02/17/17 drops,suspension tamsulosin 0.4 mg capsule 0.4 mg PO HS cap 09/27/14 02/17/17 cholecalciferol (vitamin D3) 1,000 1,000 unit PO QDAY cap 12/06/14 02/17/17 unit capsule Brimonidine Ophth Drops [Alphagan 1 gtt OU HS 05/28/15 02/17/17 P Ophth Drops] Latanoprost Ophth Drops [Xalatan 1 gtt OD BID 05/28/15 02/17/17 Ophth Drops] verapamil ER (SR) 120 mg 120 mg PO QDAY 09/29/16 02/17/17 tablet,extended release Digoxin [Lanoxin] 125 mcg PO Q48 02/17/17 02/17/17 Ipratropium/Albuterol [Duoneb] 3 ml NEB QIDP 02/17/17 02/17/17 Magnesium Oxide [Magnesium] 250 mg PO DAILY 02/17/17 02/17/17 allopurinol 100 mg tablet 100 mg PO QDAY 02/17/17 02/17/17 calcium acetate 667 mg tablet 667 mg PO QDAY tab 02/17/17 02/17/17 colchicine 0.6 mg tablet 0.6 mg PO QDAY 02/17/17 02/17/17 digoxin 125 mcg tablet 62.5 mg PO Q48 02/17/17 02/17/17 fluticasone 50 mcg/actuation nasal 1 spray INTRANASAL QDAY 02/17/17 02/17/17 spray,suspension insulin aspart 100 unit/mL See Label Instructions SUB-Q ACHS 02/17/17 02/17/17 subcutaneous solution metoprolol succinate ER 25 mg 25 mg PO QDAY 02/17/17 02/17/17 tablet,extended release 24 hr multivitamin,cv-mzel-khltcuva 1 tab PO QDAY 02/17/17 02/17/17 tablet pantoprazole 40 mg tablet,delayed 40 mg PO QDAY 02/17/17 02/17/17 release polyethylene glycol 3350 17 17 g PO QDAY g 02/17/17 02/17/17 gram/dose oral powder trazodone 50 mg tablet 50 mg PO QHS 02/17/17 02/17/17 warfarin 5 mg tablet 5 mg PO QDAY 02/17/17 02/17/17 Previous Rx's Medication Instructions Recorded potassium chloride ER 10 mEq 10 meq PO QDAY #30 cap 09/29/16 capsule,extended release zolpidem 5 mg tablet 5 mg PO HS PRN #14 tab 01/27/17 Furosemide [Lasix] 80 mg PO BID #60 tab 02/22/17 Levofloxacin [Levaquin] 500 mg PO Q48H #3 tab 02/22/17 Metolazone [Zaroxolyn] 2.5 mg PO DAILY #30 tab 02/22/17 predniSONE [Prednisone] 40 mg PO [facility] #3 tab 02/22/17 Allergies Allergy/AdvReac Type Severity Reaction Status Date / Time No Known Drug Allergies Allergy Verified 02/17/17 14:08 Review of Systems Limitations: ROS unobtainable due to patients medical condition Past Medical History - Past Medical History [facility] Narrative: Medical History (Last Reviewed 02/17/17 @ 16:17 by Deidra Contreras MD) Shingles (Acute) Traumatic ecchymosis of left shoulder (Acute) Acute CHF (congestive heart failure) (Acute) Peripheral vascular disease (Chronic) COPD (chronic obstructive pulmonary disease) (Chronic) Diabetes mellitus (Chronic) Hypertension (Chronic) Benign prostatic hypertrophy (Chronic) Chronic anticoagulation (Chronic) Chronic atrial fibrillation (Chronic) Azotemia (Chronic) Chronic kidney disease, stage IV (severe) (Chronic) Acute exacerbation of chronic obstructive pulmonary disease (Chronic) Recurrent right pleural effusion (Chronic) Acute decompensated heart failure (Chronic) Pes planus of both feet (Chronic) Long-term use of high-risk medication (Chronic) Osteoarthritis (Chronic) Arthralgia of multiple joints (Chronic) Secondary hyperparathyroidism of renal origin (Chronic) Hypomagnesemia (Acute) Hypertensive renal disease (Chronic) Edema (Chronic) Chronic kidney disease, stage IV (severe) (Chronic) Chronic Kidney Disease (Chronic) Sleep apnea (Chronic) Shortness of breath (Acute) Pulmonary hypertension (Chronic) Pneumonia (Acute) Obesity (Acute) Myelodysplastic syndrome (Acute) Mitral stenosis (Acute) Hyperlipidemia (Acute) Gynecomastia (Acute) Gout (Chronic) Type 2 diabetes mellitus (Chronic) Congestive heart failure (Acute) CAD (coronary artery disease) (Acute) Pardo palsy (Chronic) Atrial fibrillation (Chronic) Aortic stenosis (Acute) Anemia (Chronic) Past Surgical History (Last Reviewed 02/17/17 @ 16:17 by Deidra Contreras MD) Hx of CABG (Acute) History of carotid endarterectomy (Acute) Previous back surgery (Acute) Status post Maze operation for atrial fibrillation (Acute) H/O aortic valve replacement (Acute) History of right-sided carotid endarterectomy (Chronic) History of three vessel coronary artery bypass (Chronic ~1983) History of total knee arthroplasty (Chronic) History of total replacement of right shoulder joint (Chronic) Status post thoracentesis (Chronic) Family History (Last Reviewed 02/17/17 @ 16:17 by Deidra Contreras MD) Father Heart disease Hypertension Myocardial infarction Cancer Mother Ovarian cancer Brother Heart problem Medical history: Reports: atrial fibrillation, COPD, coronary artery disease, diabetes, renal disease, other (Shingles, Secondary hyperparathyroidism of renal origin, hypomagnesemia, hypertensive renal disease, edema, chronic kidney disease stage IV, coronary artery bypass graft, carotid endarterectomy, back surgery, Maze operation for atrial fibrillation, aortic valve replacement, sleep apnea, shortness of breath, pulmonary hypertension, pneumonia, obesity, myelodysplastic syndrome, mitral stenosis, hyperlipidemia, gynecomastia, and gout, type 2 diabetes, congestive heart failure, coronary artery disease, Prado' s palsy, atrial fibrillation, a history aortic stenosis, anemia) Surgical history ED: Reports: non-contributory - Social History smoking status: Never smoker Alcohol use: Reports: None Drug use: Reports: none Physical Exam Limitations: altered mental status General appearance: in no apparent distress Head: atraumatic, normocephalic Eye: Present: normal appearance ENT: normal exam Neck: Present: normal inspection Chest: Present: normal inspection Respiratory: Present: normal lung sounds bilaterally Cardiovascular: Present: regular rate, normal rhythm, normal heart sounds Abdominal: Present: soft. Absent: distention, tenderness Extremities: Present: pedal edema, pretibial edema Psychiatric: Present: flat affect Skin: Present: warm, dry, intact Course Vital Signs Temperature 99.4 F H 02/25/17 17:24 Pulse Rate 71 02/25/17 17:24 Respiratory Rate 18 02/25/17 17:24 Blood Pressure 137/73 02/25/17 17:24 Pulse Oximetry (%) 100 02/25/17 17:24 Temperature 99.4 F H 02/25/17 17:24 Pulse Rate 71 02/25/17 17:24 Respiratory Rate 18 02/25/17 17:24 Blood Pressure 137/73 02/25/17 17:24 Pulse Oximetry (%) 100 02/25/17 17:24 Shortness of Breath/Dyspnea - MDM Narrative Medical decision making narrative: This patient is in heart failure but is kidney function does not warrant acute dialysis tonight. I did discuss the case with Dr. Contreras and he will be admitted by Dr. Davey to the telemetry of [facility]. - Lab Data Lab results reviewed: Yes I reviewed the patient's lab results. Result diagrams: 02/25/17 17:43 02/25/17 17:43 Lab Results 02/25/17 02/25/17 02/25/17 Range/Units 17:43 17:43 17:43 WBC 12.2 H (4.5-11.0) K/mcL RBC 2.85 L (4.50-5.90) M/mcL Hgb 10.6 L (13.5-16.5) g/dL Hct 31.6 L (41.0-55.0) % MCV 111.0 H (80.0-100.0) fL MCH 37.1 H (26.0-34.0) pg MCHC 33.4 (31.0-36.0) g/dL RDW 28.3 H (11.5-14.5) % Plt Count 102 L (140-440) K/mcL MPV 10.5 H (7.4-10.4) fL Gran % 87.4 H (38.0-78.0) % Lymph % (Auto) 6.8 L (15.5-49.0) % [place] % (Auto) 4.2 (1.0-12.0) % Eos % (Auto) 1.5 (0.0-7.0) % Baso % (Auto) 0.1 (0.0-2.0) % Gran # 10.7 H (1.8-8.0) K/mcL Lymph # (Auto) 0.8 L (1.5-4.8) K/mcL [place] # (Auto) 0.5 (0.1-0.9) K/mcL Eos # (Auto) 0.2 (0.0-0.7) K/mcL Baso # (Auto) 0 (0.0-0.3) K/mcL Differential Comment (()) Sodium 136 (133-145) mmol/L Potassium 4.8 (3.3-5.1) mmol/L Chloride 93 L (96-108) mmol/L Carbon Dioxide 23 (22-30) mmol/L Anion Gap 20.0 H (8-16) BUN 66 H (8-23) mg/dl Creatinine 2.2 H (0.7-1.2) mg/dl GFR Calculation 26 Glucose 124 H (70-105) mg/dL Calcium 9.6 (8.6-10.4) mg/dl Total Bilirubin 1.0 (0.0-1.0) mg/dL AST 18 (0-37) U/l ALT 16 (0-40) U/l Alkaline Phosphatase 95 (39-117) U/L Troponin T 0.19 H* (0-0.03) ng/ml NT-Pro-B Natriuret Pep 87447.0 H (0-450) pg/ml Total Protein 6.3 (5.9-8.4) gm/dL Albumin 4.1 (3.2-5.2) gm/dL Globulin 2.2 (2.2-3.7) gm/dL Albumin/Globulin Ratio 1.9 (1.0-2.3) - Radiology Data Radiology results reviewed: Yes I reviewed the patient's radiology results. Disposition Pt seen by INDUSTRIAL ELECTRICAL ENGINEER/PA only: No Clinical Impression: Acute decompensated heart failure Disposition: Xfer As Inpt ([facility]) Referrals: Juaquin Alejandra MD [Primary Care Provider] - Time of Disposition: 19:35
--- NOTE | 2017-02-25 18:13 | XRay Report ---
INDICATION: Chest pain. Dyspnea. TECHNIQUE: AP chest x-ray,portable COMPARISON: Previous chest x-rays dated 02/20/2017, 02/17/2017, 01/16/2017, 05/30/2015 FINDINGS:No change in large caliber right central venous catheter position. Previous median sternotomy. Severe cardiomegaly. Prominent pulmonary vascularity and probable pulmonary edema. There are bilateral pleural effusions, right worse in left. Appearance is consistent with congestive heart failure. Findings may be slightly worsened on 02/20/2017. IMPRESSION: 1. Severe cardiomegaly 2. Findings consistent with congestive heart failure. Probable slight interval worsening Interpreted and Authenticated by: Franklyn Jasnen 02/25/17
[2017-02-25 18:49] LABS: Basophils # (Auto) 0 K/mcL (0.0-0.3); Basophils % (Auto) 0.1 % (0.0-2.0); Eosinophils # (Auto) 0.2 K/mcL (0.0-0.7); Eosinophils % (Auto) 1.5 % (0.0-7.0); Granulocytes % (Auto) 87.4 % (38.0-78.0); Lymphocytes # (Auto) 0.8 K/mcL (1.5-4.8); Lymphocytes % (Auto) 6.8 % (15.5-49.0); Mean Corpuscular HGB Conc 33.4 g/dL (31.0-36.0); Mean Corpuscular Hemoglobin 37.1 pg (26.0-34.0); Monocytes # (Auto) 0.5 K/mcL (0.1-0.9); Monocytes % (Auto) 4.2 % (1.0-12.0); Platelet Count 102 K/mcL (140-440); RBC 2.85 M/mcL (4.50-5.90); Red Cell Distribution Width 28.3 % (11.5-14.5)
[2017-02-25 19:09] LABS: ALT/SGPT 16 U/l (0-40); Albumin 4.1 gm/dL (3.2-5.2); Albumin/Globulin Ratio 1.9 (1.0-2.3); Alkaline Phosphatase 95 U/L (39-117); Blood Urea Nitrogen 66 mg/dl (8-23)
--- NOTE | 2017-02-25 20:47 | Internal Med History&Physical ---
Medical - H&P: HPI Patient information: Note initiated : 02/25/17 at 8:43 pm Service Date, if different from initiated Date: [] Patient: Jakob Lancastre 86 y/o M admitted on for shortness of breath Chief Complaint: [] History of present illness: This is a pleasant man with a comp with a past history including CHF with CKD for recently started on dialysis for fluid management after recurrent hospitalizations for CHF exacerbation and pneumonia. During his last hospitalization, there was concern that his dyspnea was related to anxiety. He presented to outpatient dialysis today and apparently his portable oxygen tank was not working. He was short of breath upon arrival and this did not resolve despite supplemental O2 placed on him at dialysis. Due to his symptoms , he was referred to the ER. He was found to have a respiratory alkalosis on ABG. He has been prescribed to start Levaquin yesterday possibly for pneumonia. BNP is actually improved from 02/17. CXR is only slightly worse from 02/20. We discussed that anxiety may be driving his symptoms in part, and he and his family are open to that idea. Yesterday he itched his left eye and suffered a conjunctival hemorrhage. He was evaluated by the eye doctor who recommended cold compresses. Review of systems: Please see the HPI. Otherwise a comprehensive review of systems is negative or noncontributory to chief complaint. 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 fib on chronic anticoagulation Surgical history: History of CABG History of carotid endarterectomy History of aortic valve replacement History of Maze procedure for A. fib History of total placement of right shoulder joint Pertinent family history: Heart disease Hypertension Myocardial infarction Cancer Social history: He lives at home with his and uses a walker for ambulation. He is a DNR/ DNI and designates his , Mariella, as his surrogate medical decision maker. Smoking status: Never smoker Drug use: none Alcohol use: none Medical - H&P: Meds Home Medications Medication Instructions Recorded Confirmed Type brinzolamide 1 % eye 1 drp OU BID ml 09/27/14 02/25/17 History drops,suspension tamsulosin 0.4 mg capsule 0.4 mg PO HS cap 09/27/14 02/25/17 History cholecalciferol (vitamin D3) 1,000 1,000 unit PO QDAY cap 12/06/14 02/25/17 History unit capsule Brimonidine Ophth Drops [Alphagan 1 gtt OU HS 05/28/15 02/25/17 History P Ophth Drops] Latanoprost Ophth Drops [Xalatan 1 gtt OD BID 05/28/15 02/25/17 History Ophth Drops] potassium chloride ER 10 mEq 10 meq PO QDAY #30 cap 09/29/16 02/25/17 Rx capsule,extended release verapamil ER (SR) 120 mg 120 mg PO QDAY 09/29/16 02/25/17 History tablet,extended release zolpidem 5 mg tablet 5 mg PO HS PRN #14 tab 01/27/17 02/25/17 Rx Digoxin [Lanoxin] 125 mcg PO Q48 02/17/17 02/25/17 History Ipratropium/Albuterol [Duoneb] 3 ml NEB QIDP 02/17/17 02/25/17 History Magnesium Oxide [Magnesium] 250 mg PO DAILY 02/17/17 02/25/17 History allopurinol 100 mg tablet 100 mg PO QDAY 02/17/17 02/25/17 History calcium acetate 667 mg tablet 667 mg PO QDAY tab 02/17/17 02/25/17 History colchicine 0.6 mg tablet 0.6 mg PO QDAY 02/17/17 02/25/17 History digoxin 125 mcg tablet 62.5 mg PO Q48 02/17/17 02/25/17 History fluticasone 50 mcg/actuation nasal 1 spray INTRANASAL QDAY 02/17/17 02/25/17 History spray,suspension insulin aspart 100 unit/mL See Label Instructions SUB-Q ACHS 02/17/17 02/25/17 History subcutaneous solution metoprolol succinate ER 25 mg 25 mg PO QDAY 02/17/17 02/25/17 History tablet,extended release 24 hr multivitamin,[id number]-[id number] 1 tab PO QDAY 02/17/17 02/25/17 History tablet pantoprazole 40 mg tablet,delayed 40 mg PO QDAY 02/17/17 02/25/17 History release polyethylene glycol 3350 17 17 g PO QDAY g 02/17/17 02/25/17 History gram/dose oral powder trazodone 50 mg tablet 50 mg PO QHS 02/17/17 02/25/17 History warfarin 5 mg tablet 5 mg PO QDAY 02/17/17 02/25/17 History Furosemide [Lasix] 80 mg PO BID #60 tab 02/22/17 02/25/17 Rx Levofloxacin [Levaquin] 500 mg PO Q48H #3 tab 02/22/17 02/25/17 Rx Metolazone [Zaroxolyn] 2.5 mg PO DAILY #30 tab 02/22/17 02/25/17 Rx predniSONE [Prednisone] [address] [facility] #3 tab 02/22/17 02/25/17 Rx Allergies Allergy/AdvReac Type Severity Reaction Status Date / Time No Known Drug Allergies Allergy Verified 02/17/17 14:08 Medical - H&P: Exam - Constitutional Vitals: Temp Pulse Resp BP Pulse Ox 99.4 F H 66 22 125/57 100 02/25/17 17:24 02/25/17 19:39 02/25/17 19:39 02/25/17 19:39 02/25/17 19:39 Exam: General: NAD, chronically ill appearing man who appears stated age. Multiple family members at the bedside HEENT: Normal cephalic atraumatic. Some conjunctival hemorrhage of the left eye with periorbital ecchymosis Neck is supple without adenopathy or thyromegaly CV: Regular rate and rhythm. Systolic murmur best heard at the right upper sternal border. Abdomen: Soft, nondistended, nontender. Normal bowel tones. Extremities: No clubbing, cyanosis or edema. He has 3+ pitting edema of his legs. Multiple ecchymoses over his fragile skin Neuro: Alert and oriented 3. Cranial nerves II through XII are grossly intact. He has no focal motor or sensory deficits. Psychiatric: Slightly anxious Skin: Multiple ecchymoses. Warm and dry. No jaundice. Medical - H&P: Reslt - Labs CBC & Chem 7: 02/25/17 17:43 02/25/17 17:43 Labs: Short CBC 02/25/17 Range/Units 17:43 WBC 12.2 H (4.5-11.0) K/mcL Hgb 10.6 L (13.5-16.5) g/dL Hct 31.6 L (41.0-55.0) % Plt Count 102 L (140-440) K/mcL BMP 02/25/17 17:43 Sodium 136 Potassium 4.8 Chloride 93 L Carbon Dioxide 23 BUN 66 H Creatinine 2.2 H Glucose 124 H Calcium 9.6 Cardiac Enzymes 02/25/17 Range/Units 17:43 Troponin T 0.19 H* (0-0.03) ng/ml Liver Function 02/25/17 Range/Units 17:43 Total Bilirubin 1.0 (0.0-1.0) mg/dL AST 18 (0-37) U/l ALT 16 (0-40) U/l Alkaline Phosphatase 95 (39-117) U/L Albumin 4.1 (3.2-5.2) gm/dL - ABG Interpretation Interpretation: respiratory alkalosis - EKG Data -: EKG Reviewed by Myself - EKG Data Prior EKG available for review: yes When compared to previous EKG: there is no significant change EKG comments: 02/25/17 21:01 irregularly irregular with a bundle branch block. - Impressions Chest x-ray shows slight interval worsening with more pulmonary edema and bilateral pleural effusions, right greater than left Medical - H&P: A/P - Narrative A/P Narrative: #Dyspnea -2/2 pulmonary edema and bilateral pleural effusions from volume overload. Will give Lasix 80mg IV. Trend BMP. Discussed with Dr. Contreras. Nephrology to see in AM -also large component of anxiety. Start PRN low dose Ativan. He does take zolpidem regularly and does not have issue with this. Monitor for delirium. Will also start Zoloft, which will need to be uptitrated over the next several weeks to take effect. Goal will be to taper off Ativan long-term. I discussed this with patient and family and they are agreeable. -with leukocytosis, may have underlying PNA. Will cont OP Levaquin for now #L subconjunctival hemorrhage with periorbital ecchymosis -cold packs TID #A fib on coumadin, rate controlled -check INR. Warfarin per pharmacy -cont home verapamil, metoprolol and digoxin (with renal dosing) #CKD4-5 on HD--plan as above. Cont home calcium acetate and MVI. #MDS--monitor CBC. No need for transfusion as of yet. #DM2--SSI tier 1 #DVT ppx: warfarin #Code: DNR/DNI. His is his surrogate MDM.
[2017-02-25] MEDS ORDERED: DEXTROSE 50% 50 ML VIAL IV PRN (21:18)
[2017-02-25] MEDS ORDERED: DEXTROSE 31 GM ORAL.SUSP PO PRN (21:18)
[2017-02-25] MEDS ORDERED: ONDANSETRON 4 MG/2 ML VIAL IV PRN (21:39)
[2017-02-25] MEDS ORDERED: ZOLPIDEM 5 MG TABLET PO PRN (21:39)
[2017-02-25] MEDS ORDERED: FUROSEMIDE 100 MG/10 ML VIAL IV ONE (21:39)
[2017-02-25] MEDS ORDERED: ACETAMINOPHEN 325 MG TABLET PO PRN (21:39)
[2017-02-25] MEDS ORDERED: LEVOFLOXACIN 500 MG TABLET PO SCH (21:39)
[2017-02-25] MEDS ORDERED: LEVOFLOXACIN 500 MG TABLET ONE (22:15)
[2017-02-25] MEDS ORDERED: FUROSEMIDE 40 MG/4 ML VIAL IV ONE (22:15)
[2017-02-25] MEDS: IPRATROPIUM/ALBUTEROL 3 ML AMPUL.NEB NEB SCH (22:49)
[2017-02-26] MEDS: LORazepam 0.5 MG TABLET PO PRN ×2 (00:23→12:12)
[2017-02-26] MEDS: IPRATROPIUM/ALBUTEROL 3 ML AMPUL.NEB NEB SCH ×3 (03:59→10:34)
[2017-02-26 05:57] LABS: ALT/SGPT 13 U/l (0-40); Albumin 3.6 gm/dL (3.2-5.2); Albumin/Globulin Ratio 1.7 (1.0-2.3); Alkaline Phosphatase 90 U/L (39-117); Blood Urea Nitrogen 66 mg/dl (8-23)
[2017-02-26 06:18] LABS: Anisocytosis 3+ (NONE SEEN); Band Neutrophils % 7 % (0-10); Eosinophils % (Manual) 3 % (0-7); Lymphocytes % 11 % (15-49); Macrocytosis 3+ (NONE SEEN); Monocytes % (Manual) 2 % (1-12); Myelocytes % 1 % (0-0); Ovalocytes 1+ (NONE SEEN); Platelet Estimate DECREASED (NORMAL); RBC Morphology ABNORM (NORMAL); Segmented Neutrophils % 76 % (38-78); Tear Drop Cells FEW (NONE SEEN)
[2017-02-26 06:19] LABS: Mean Corpuscular HGB Conc 33.2 g/dL (31.0-36.0); Mean Corpuscular Hemoglobin 36.8 pg (26.0-34.0); Platelet Count 106 K/mcL (140-440); RBC 2.66 M/mcL (4.50-5.90); Red Cell Distribution Width 28.5 % (11.5-14.5)
[2017-02-26] MEDS ORDERED: PANTOPRAZOLE 40 MG TABLET PO SCH (07:30)
[2017-02-26] MEDS ORDERED: POTASSIUM CHLORIDE 10 MEQ TABLET PO SCH (08:00)
[2017-02-26] MEDS: INSULIN LISPRO 1 UNIT/0.01 ML UNIT SQ SCH ×2 (08:01→11:48)
[2017-02-26] MEDS ORDERED: LATANOPROST OPHTH DROPS 2.5ML BOTTLE OD SCH (09:00)
[2017-02-26] MEDS ORDERED: COLCHICINE 0.6 MG TABLET PO SCH (09:00)
[2017-02-26] MEDS ORDERED: DIGOXIN 125 MCG TABLET PO SCH (09:00)
[2017-02-26] MEDS ORDERED: METOPROLOL SUCCINATE 25 MG TAB.XL.24H PO SCH (09:00)
[2017-02-26] MEDS ORDERED: SERTRALINE 50 MG TABLET PO SCH (09:00)
[2017-02-26] MEDS ORDERED: CALCIUM ACETATE 667 MG PO SCH (09:00)
[2017-02-26] MEDS ORDERED: FLUTICASONE PROPIONATE SPRAY.NAS NS SCH (09:00)
[2017-02-26] MEDS ORDERED: BRINZOLAMIDE EYE OU SCH (09:00)
[2017-02-26] MEDS ORDERED: MULTIVIT,THER IRON,CA,FA & MIN 1 TABLET PO SCH (09:00)
[2017-02-26] MEDS ORDERED: POLYETHYLENE GLYCOL 3350 17 GM PACKET PO SCH (09:00)
[2017-02-26] MEDS ORDERED: ALLOPURINOL 100 MG TABLET PO SCH (09:00)
[2017-02-26] MEDS ORDERED: VITAMIN D3 1,000 UNIT TABLET PO SCH (09:00)
[2017-02-26] MEDS ORDERED: VERAPAMIL 120 MG TAB.XL.24H PO SCH (09:00)
[2017-02-26] MEDS ORDERED: MAGNESIUM OXIDE 400 MG TABLET PO SCH (09:00)
--- NOTE | 2017-02-26 10:50 | Discharge Summary ---
Medical - DS: Prov Patient information: Note initiated : 02/26/17 at 10:41 am Service Date, if different from initiated Date: [] Patient: Jakob Lancaster 86 y/o M admitted on 02/25/17 for Shortness of Breath, Left Arm Numbness/Dyspnea. Chief Complaint: [] Date of admission: 02/25/17 21:26 Discharge date: 02/26/17 Primary care physician: Juaquin Alejandra Attending physician on admission: Marylu Davey Consults: 02/25/17 19:44 Consult to Physician [CONS] Stat Comment: Consulting Provider: Marylu Davey Reason For Exam: Physician to Consult Attending physician on discharge: Marylu Davey Medical - DS: Meds - Discharge Medications Prescriptions: Furosemide [Lasix] 20 mg PO BID #60 tab LORazepam [Ativan] 0.5 mg PO Q8HP PRN #20 tab PRN Reason: Anxiety RX: Potassium Chloride 20 meq PO QDAY #30 cap RX: Sertraline [Zoloft] 25 mg PO DAILY #60 tab Active and Home Medications: Home Medications brinzolamide 1 % eye drops,suspension 1 drp OU BID ml 09/27/14 [History Confirmed 02/25/17 Last Taken 02/16/17 21:00] tamsulosin 0.4 mg capsule 0.4 mg PO HS cap 09/27/14 [History Confirmed Last Taken 02/16/17 21:00] cholecalciferol (vitamin D3) 1,000 unit capsule 1,000 unit PO QDAY cap [History Confirmed 02/25/17 Last Taken 02/16/17 08:00] Brimonidine Ophth Drops [Alphagan P Ophth Drops] 1 gtt OU HS 05/28/15 [History Confirmed 02/25/17 Last Taken 02/16/17 21:00] Latanoprost Ophth Drops [Xalatan Ophth Drops] 1 gtt OD BID 05/28/15 [History Confirmed 02/25/17 Last Taken 02/16/17 21:00] potassium chloride ER 10 mEq capsule,extended release 10 meq PO QDAY #30 cap [Rx Confirmed 02/25/17 Last Taken 02/16/17 08:00] verapamil ER (SR) 120 mg tablet,extended release 120 mg PO QDAY 09/29/16 [ History Confirmed 02/25/17 Last Taken 02/16/17 08:00] zolpidem 5 mg tablet 5 mg PO HS PRN #14 tab 01/27/17 [Rx Confirmed 02/25/17 Last Taken 02/16/17 21:00] Digoxin [Lanoxin] 125 mcg PO Q48 02/17/17 [History Confirmed 02/25/17 Last Taken 02/16/17 08:00] Ipratropium/Albuterol [Duoneb] 3 ml NEB QIDP 02/17/17 [History Confirmed Last Taken 02/16/17 21:00] Magnesium Oxide [Magnesium] 250 mg PO DAILY 02/17/17 [History Confirmed Last Taken 02/16/17 08:00] allopurinol 100 mg tablet 100 mg PO QDAY 02/17/17 [History Confirmed 02/25/17 Last Taken 02/16/17 08:00] calcium acetate 667 mg tablet 667 mg PO QDAY tab 02/17/17 [History Confirmed Last Taken 02/16/17 08:00] colchicine 0.6 mg tablet 0.6 mg PO QDAY 02/17/17 [History Confirmed 02/25/17 Last Taken 02/16/17 09:00] digoxin 125 mcg tablet 62.5 mg PO Q48 02/17/17 [History Confirmed 02/25/17 Last Taken 02/15/17 08:00] fluticasone 50 mcg/actuation nasal spray,suspension 1 spray INTRANASAL QDAY 11/26 [History Confirmed 02/25/17 Last Taken 02/16/17 09:00] insulin aspart 100 unit/mL subcutaneous solution See Label Instructions SUB-Q ACHS 02/17/17 [History Confirmed 02/25/17 Last Taken Unknown] metoprolol succinate ER 25 mg tablet,extended release 24 hr 25 mg PO QDAY [History Confirmed 02/25/17 Last Taken 02/16/17 08:00] multivitamin,[id number] tablet 1 tab PO QDAY 02/17/17 [History Confirmed 02/25/17 Last Taken 02/16/17 08:00] pantoprazole 40 mg tablet,delayed release 40 mg PO QDAY 02/17/17 [History Confirmed 02/25/17 Last Taken 02/16/17 09:00] polyethylene glycol 3350 17 gram/dose oral powder 17 g PO QDAY g 02/17/17 [ History Confirmed 02/25/17 Last Taken 02/16/17 08:00] trazodone 50 mg tablet 50 mg PO QHS 02/17/17 [History Confirmed 02/25/17 Last Taken 02/16/17 21:00] warfarin 5 mg tablet 5 mg PO QDAY 02/17/17 [History Confirmed 02/25/17 Last Taken 02/16/17 12:00] Furosemide [Lasix] 80 mg PO BID #60 tab 02/22/17 [Rx Confirmed 02/25/17 Last Taken Unknown] Levofloxacin [Levaquin] 500 mg PO Q48H #3 tab 02/22/17 [Rx Confirmed 02/25/17 Last Taken Unknown] Metolazone [Zaroxolyn] 2.5 mg PO DAILY #30 tab 02/22/17 [Rx Confirmed 02/25/17 Last Taken Unknown] predniSONE [Prednisone] 40 mg PO [facility] #3 tab 02/22/17 [Rx Confirmed 02/25/17 Last Taken Unknown] Medical - DS: Hosp Hospital course: Mr. Lancaster is a 86 year old M with a complicated past medical history including CHF with CKD who was recently started on dialysis for fluid management after recurrent hospitalizations for CHF exacerbations and pneumonia. During his prior hospitalization, there was concern that his dyspnea was not related to anxiety. On the day of admission, he presented to outpatient dialysis with shortness of breath and reports that his portable oxygen tank was not working. His dyspnea did not resolve despite supplemental oxygen placed on hemodialysis. He was referred to the ER and found to have a significant respiratory alkalosis on ABG. His chest x-ray showed very minimal increase in pulmonary edema. He was treated with Lasix 80 mg IV and diuresed well. It was discovered that he actually does not have an order for continuous home oxygen and during his ambulatory oximetry, the patient did not require any oxygen, maintaining a saturation of 95% with ambulation. During this admission, I discussed with him and his family that anxiety may be driving his dyspnea symptoms. They're receptive to this idea. He has had good response to low dose as needed Ativan. I have started him on Zoloft and the patient and family are aware that this needs to be up titrated with plans to eventually wean off of Ativan as it can be habit forming. We discussed using a fan by his bed to blow air overto help with the sensation of air hunger. On the day of discharge, I saw the patient with nephrology, Dr. Rosenberg, and he recommended increasing his home Lasix to 100 mg twice daily and discontinuing his metolazone. He had a mild troponin elevation which is not new. The patient denied any anginal symptoms and his EKG shows RBBB, unchanged from prior. This is likely related to renal failure. Discharge diagnosis: Dyspnea secondary to pulmonary edema Secondary discharge diagnosis: Anxiety L subconjunctival hemorrhage A fib on coumadin, rate controlled. Subtherapeutic INR CKD 4-5 on HD DM2 Pertinent studies/significant findings: IMPRESSION: 1. Severe cardiomegaly 2. Findings consistent with congestive heart failure. Probable slight interval worsening - Time Spent with Patient Total time spent providing and/or coordinating discharge services: Greater than 30 minutes Medical - DS: Exam - Constitutional Vitals: Vital Signs Temp Pulse Resp BP Pulse Ox 02/26/17 10:34 66 18 100 02/26/17 08:04 98.4 F 125/56 100 02/26/17 07:40 99 02/26/17 06:49 59 L 18 100 02/26/17 03:48 98.2 F 18 130/65 98 02/26/17 00:03 97.4 F 18 140/84 100 02/25/17 22:51 64 16 100 02/25/17 22:49 64 12 02/25/17 22:31 110/56 100 02/25/17 22:16 128/56 100 02/25/17 22:01 108/54 02/25/17 21:45 99.3 F H 62 119/52 100 02/25/17 21:26 99.4 F H 64 12 109/48 100 02/25/17 21:08 64 12 109/48 100 02/25/17 21:01 65 20 109/48 100 02/25/17 20:31 71 15 142/63 100 02/25/17 20:01 65 13 128/72 100 02/25/17 19:39 66 22 125/57 100 02/25/17 19:31 67 14 125/57 100 02/25/17 19:01 65 17 123/70 100 02/25/17 18:32 70 14 134/68 100 02/25/17 18:18 72 19 145/61 100 02/25/17 17:24 99.4 F H 71 18 137/73 100 Intake and Output 02/25/17 02/26/17 02/26/17 21:59 05:59 13:59 Output Total 300 / 300 925 / 925 1750 / 1750 Balance -300 / -300 -925 / -925 -1750 / -1750 Output: Void Amount 300 / 300 925 / 925 1750 / 1750 Other: Meal Breakfast Percent of Meal Consumed 100% Feeding Ability Independent # Voids 1 # Bowel Movements 1 Weight 162 lb 8 oz Medical - DS: Data Labs on day of discharge: Labs from last 24 hours 02/26/17 02/26/17 02/25/17 04:00 04:00 17:43 WBC 7.5 RBC 2.66 L Hgb 9.8 L Hct 29.5 L MCV 111.0 H MCH 36.8 H MCHC 33.2 RDW 28.5 H Plt Count 106 L MPV 12.9 H Gran % Lymph % (Auto) Miner % (Auto) Eos % (Auto) Baso % (Auto) Gran # Lymph # (Auto) Miner # (Auto) Eos # (Auto) Baso # (Auto) Total Counted 100 Seg Neutrophils % 76 Band Neutrophils % 7 Lymphocytes % 11 L Monocytes % (Manual) 2 Eosinophils % (Manual) 3 Myelocytes % 1 H Nucleated RBCs 2 H Differential Comment Platelet Estimate Decreased A RBC Morphology Abnorm A Poikilocytosis 1+ A Anisocytosis 3+ A Macrocytosis 3+ A Tear Drop Cells Few A Ovalocytes 1+ A RBC Fragments Occ A PT 16.2 H INR 1.3 H Sodium 138 Potassium 3.6 Chloride 98 Carbon Dioxide 26 Anion Gap 14.0 BUN 66 H Creatinine 2.4 H GFR Calculation 24 Glucose 117 H Calcium 8.8 Total Bilirubin 0.9 AST 15 ALT 13 Alkaline Phosphatase 90 Troponin T NT-Pro-B Natriuret Pep 50328.0 H Total Protein 5.7 L Albumin 3.6 Globulin 2.1 L Albumin/Globulin Ratio 1.7 02/25/17 02/25/17 02/25/17 17:43 17:43 17:43 WBC 12.2 H RBC 2.85 L Hgb 10.6 L Hct 31.6 L MCV 111.0 H MCH 37.1 H MCHC 33.4 RDW 28.3 H Plt Count 102 L MPV 10.5 H Gran % 87.4 H Lymph % (Auto) 6.8 L Miner % (Auto) 4.2 Eos % (Auto) 1.5 Baso % (Auto) 0.1 Gran # 10.7 H Lymph # (Auto) 0.8 L Miner # (Auto) 0.5 Eos # (Auto) 0.2 Baso # (Auto) 0 Total Counted Seg Neutrophils % Band Neutrophils % Lymphocytes % Monocytes % (Manual) Eosinophils % (Manual) Myelocytes % Nucleated RBCs Differential Comment Platelet Estimate RBC Morphology Poikilocytosis Anisocytosis Macrocytosis Tear Drop Cells Ovalocytes RBC Fragments PT INR Sodium 136 Potassium 4.8 Chloride 93 L Carbon Dioxide 23 Anion Gap 20.0 H BUN 66 H Creatinine 2.2 H GFR Calculation 26 Glucose 124 H Calcium 9.6 Total Bilirubin 1.0 AST 18 ALT 16 Alkaline Phosphatase 95 Troponin T 0.19 H* NT-Pro-B Natriuret Pep 84275.0 H Total Protein 6.3 Albumin 4.1 Globulin 2.2 Albumin/Globulin Ratio 1.9 Medical - DS: A/P - Patient/Caregiver Discharge Instructions Activity: resume usual activities as tolerated Diet: Renal Additional Instructions: Continue with Dr. Contreras in Dialysis Clinic with your current schedule. Your shortness of breath is related to both volume overload and anxiety. For the water on the lung/volume overload, your home Lasix dose has been increased from 80 twice daily to 100 twice daily. Please take a 20 mg Lasix tablet with her 80 mg Lasix tablet twice daily to keep fluid off your lungs. Your potassium has been increased from 10 mEq to 20 mg once daily to replace the potassium losses. For the anxiety you experience with shortness of breath, you have been started on a long-term therapy called Zoloft. This needs to be started slowly and titrated up over the next 6-8 weeks to achieve full effect. You've been started on 25 mg daily. At the end of this week, increase that to 50 mg daily and then follow up with your primary care for further titration. If you have shortness of breath/anxiety before you reach the full dose, try a low dose of Ativan and see if it helps calm your breathing. Prescriptions: Furosemide [Lasix] 20 mg PO BID #60 tab LORazepam [Ativan] 0.5 mg PO Q8HP PRN #20 tab PRN Reason: Anxiety RX: Potassium Chloride 20 meq PO QDAY #30 cap RX: Sertraline [Zoloft] 25 mg PO DAILY #60 tab - Follow up Plan Follow up with: Juaquin Alejandra MD [Primary Care Provider] - 03/09/17 11:00 am (Your follow up appointment is with Griselda Ferro as Dr. Alejandra is out until ) Disposition: Home, Self-Care Prognosis: Fair Rehab Potential: Fair I certify that the patient requires SNF services: No Overall status at discharge: patient is back to baseline
[2017-02-26] MEDS ORDERED: TAMSULOSIN 0.4 MG CAPSULE PO SCH (21:00)
[2017-02-26] MEDS ORDERED: BRIMONIDINE OPHTH DROPS 1 GTT BOTTLE 5ML OU SCH (21:00)
[2017-02-27] MEDS ORDERED: DIGOXIN 125 MCG TABLET PO SCH (09:00)
== END 2017-02-26 14:15 | disposition home or self-care (01) ==
LOC: ICU 17:24 → ED 17:24 → ICU 21:26
PROVIDERS: ADMIT Internal Medicine; ATTEND Internal Medicine

== ENCOUNTER 2017-05-06 09:56 | Inpatient (IN) ==
--- NOTE | 2017-05-06 10:21 | Emergency Department Note ---
General Adult HPI - General Chief complaint: Blood Pressure Problem Stated complaint: Dizziness, hypotension Time Seen by Provider: 05/06/17 10:06 Source: patient, family Mode of arrival: wheelchair Limitations: no limitations - History of Present Illness HPI Narrative: 86-year-old male dialysis patient complaining of some dizziness this morning and his blood pressures at home. He states was 75 systolically. He is due for dialysis today at 5:00. Edward has been consulted. They state that he does run low blood pressures at that they do use medications during his dialysis to bring the pressures up. He denies chest pain, denies shortness of breath. State that he has a chronic cough for the past 3 months. Does have a history of COPD and pulmonary hypertension. Apparently he is problems with CHF and they are attempting to try to pull fluids. Off watching his blood pressures as well. [place] fever. There's been no nasal congestion. The current blood pressure is 91 systolic. He has chronic A. fib and is on Coumadin - Related Data Home Medications Medication Instructions Recorded Confirmed brinzolamide 1 % eye 1 drp OU BID ml 09/27/14 05/06/17 drops,suspension tamsulosin 0.4 mg capsule 0.4 mg PO HS cap 09/27/14 05/06/17 cholecalciferol (vitamin D3) 1,000 1,000 unit PO QDAY cap 12/06/14 05/06/17 unit capsule Brimonidine Ophth Drops [Alphagan 1 gtt OU HS 05/28/15 05/06/17 P Ophth Drops] Latanoprost Ophth Drops [Xalatan 1 gtt OD BID 05/28/15 05/06/17 Ophth Drops] Ipratropium/Albuterol [Duoneb] 3 ml NEB QIDP 02/17/17 05/06/17 Magnesium Oxide [Magnesium] 250 mg PO DAILY 02/17/17 05/06/17 fluticasone 50 mcg/actuation nasal 1 spray INTRANASAL QDAY 02/17/17 05/06/17 spray,suspension insulin aspart 100 unit/mL See Label Instructions SUB-Q ACHS 02/17/17 05/06/17 subcutaneous solution metoprolol succinate ER 25 mg 25 mg PO HS 02/17/17 05/06/17 tablet,extended release 24 hr polyethylene glycol 3350 17 17 g PO QDAY g 02/17/17 05/06/17 gram/dose oral powder Calcium Carbonate/Vitamin D2 1,200 mg PO DAILY 05/06/17 05/06/17 [Calcium Oys Shell 250 mg Tab] Fish Oil 1,000 mg PO DAILY 05/06/17 05/06/17 Furosemide [Lasix] 80 mg PO .COMPLEX M, W, F BID 05/06/17 05/06/17 Gabapentin [Neurontin] 100 mg PO HS 05/06/17 05/06/17 Sertraline [Zoloft] 50 mg PO DAILY 05/06/17 05/06/17 Warfarin [Coumadin] 3 mg PO .COMPLEX M,W,F HS 05/06/17 05/06/17 Warfarin [Coumadin] 6 mg PO DAILY 05/06/17 05/06/17 Previous Rx's Medication Instructions Recorded LORazepam [Ativan] 0.5 mg PO Q8HP PRN #20 tab 02/26/17 Allergies Allergy/AdvReac Type Severity Reaction Status Date / Time No Known Drug Allergies Allergy Verified 05/06/17 09:59 Review of Systems All systems ED: reviewed and negative except as stated. Constitutional: Denies: fever, chills Eyes: Denies: eye pain ENT ED: Denies: ear pain, throat pain Cardiovascular: Denies: chest pain, palpitations, dyspnea on exertion, orthopnea Respiratory: Reports: shortness of breath, cough. Denies: wheezes, phlegm Gastrointestinal: Denies: abdominal pain, nausea Genitourinary: Denies: dysuria, frequency Musculoskeletal: Denies: back pain Integumentary: Denies: rash Neurological: Denies: headache Psychiatric: Denies: anxiety Endocrine: Denies: fatigue Hematological/Lymphatic: Denies: easy bleeding Allergic/Immunologic: Denies: facial swelling Past Medical History - Past Medical History Medical history: Reports: atrial fibrillation, COPD, coronary artery disease, DM , renal disease, other (GOUT) Surgical history ED: Reports: other (cabg, ,aortic VALVE REPLACEMENTCAROTID ENDARTERECTOMYMAZE PROCEDURE FOR a. FIB) Family history: Reports: CAD/IN, hypertension - Social History smoking status: Former smoker Alcohol use: Reports: None Drug use: Reports: none Physical Exam Limitations: no limitations General appearance: alert, anxious Head: atraumatic, normocephalic Eye: Present: normal appearance, PERRL ENT: normal exam, normal oropharynx, mucous membranes moist Neck: Present: normal inspection, full ROM, trachea midline Chest: Present: normal inspection, symmetric chest wall rise. Absent: tenderness Respiratory: Present: normal lung sounds bilaterally, respiratory distress. Absent: wheezes, stridor Cardiovascular: Present: regular rate, normal rhythm. Absent: bradycardia, tachycardia Abdominal: Present: soft. Absent: distention, tenderness, guarding, rebound Extremities: Present: normal inspection, full ROM. Absent: tenderness Back: Present: normal inspection, full ROM. Absent: tenderness Neurological: Present: alert, oriented X3, CN II-XII intact Psychiatric: Present: normal affect, normal mood Skin: Present: warm, dry Course Vital Signs Temperature 97.6 F 05/06/17 09:56 Pulse Rate 70 05/06/17 09:56 Blood Pressure 91/56 05/06/17 09:56 Pulse Oximetry (%) 99 05/06/17 09:56 Temperature 97.6 F 05/06/17 09:56 Pulse Rate 69 05/06/17 11:38 Respiratory Rate 14 05/06/17 11:38 Blood Pressure 97/62 05/06/17 11:16 Pulse Oximetry (%) 100 05/06/17 11:38 Medical Decision Making - [facility] Narrative Medical decision making narrative: Dr Contreras contacted and then Dr Bolanos, Dr Bolanos request hospitalist admision after cASE DISCUSSED . wbc 54,000 WITH 11 BANDS. UA DIP SHOW WBC'S CHEST IS NEG. Dr Wells contacted and pt to be admitted. Dr Bolanos recommended vancomycin and cephepim. cultures have been drawn.. repeat wbc is 51,000. Admitted for sepsis and dialysis - Lab Data Result diagrams: 05/06/17 10:11 05/06/17 10:11 Lab Results 05/06/17 05/06/17 05/06/17 Range/Units 10:11 10:11 10:11 WBC 54.0 H* (4.5-11.0) K/mcL RBC 2.44 L (4.50-5.90) M/mcL Hgb 9.1 L (13.5-16.5) g/dL Hct 27.2 L (41.0-55.0) % POC Hct 31.0 L (41.0-55.0) % MCV 111.3 H (80.0-100.0) fL MCH 37.2 H (26.0-34.0) pg MCHC 33.4 (31.0-36.0) g/dL RDW 24.7 H (11.5-14.5) % Plt Count 141 (140-440) K/mcL MPV 13.2 H (7.4-10.4) fL Total Counted 200 Seg Neutrophils % 81 H (38-78) % Band Neutrophils % 14 H (0-10) % Monocytes % (Manual) 4 (1-12) % Eosinophils % (Manual) 1 (0-7) % Myelocytes % 1 H (0-0) % Platelet Estimate Normal (NORMAL) RBC Morphology Abnorm A (NORMAL) Anisocytosis 2+ A (NONE SEEN) Macrocytosis 3+ A (NONE SEEN) Target Cells Occ A (NONE SEEN) Acanthocytes (Spur) Few A (NONE SEEN) RBC Fragments Few A (NONE SEEN) PT (11.9-14.5) sec INR (0.9-1.1) VBG Lactic Acid (0.5-2.2) mmol/L POC Sodium 126 L (133-145) mmol/L Sodium 128 L (133-145) mmol/L POC Potassium 4.9 (3.3-5.1) mmol/L Potassium 5.2 H (3.3-5.1) mmol/L POC Chloride 91 L (96-108) mmol/L Chloride 86 L (96-108) mmol/L Carbon Dioxide 19 L (22-30) mmol/L POC Total CO2 22 (22-30) mmol/L Anion Gap 23.0 H (8-16) POC BUN 83 H (8-23) mg/dl BUN 79 H (8-23) mg/dl Creatinine 4.3 H (0.7-1.2) mg/dl POC Creatinine 5.4 H* (0.7-1.2) mg/dl GFR Calculation 12 Glucose 113 H (70-105) mg/dL POC Glucose 112 H (70-105) mg/dL Calcium 9.1 (8.6-10.4) mg/dl POC WB Ioniz Calcium 1.16 (1.16-1.32) mmol/L Total Bilirubin 0.7 (0.0-1.0) mg/dL AST 16 (0-37) U/l ALT 7 (0-40) U/l Alkaline Phosphatase 106 (39-117) U/L Total Creatine Kinase 42 (24-195) IU/L CK-MB (CK-2) 6.7 H (0-4.9) ng/ml Myoglobin 138 H (28-72) ng/ml Troponin T 0.24 H* (0-0.03) ng/ml Total Protein 6.2 (5.9-8.4) gm/dL Albumin 4.2 (3.2-5.2) gm/dL Globulin 2.0 L (2.2-3.7) gm/dL Albumin/Globulin Ratio 2.1 (1.0-2.3) Urine Color Urine Appearance Urine pH (5.0-9.0) Ur Specific Flasher (1.000-1.035) Urine Protein (NEG) mg/dL Urine Glucose (UA) (NEG) mg/dL Urine Ketones (NEG) mg/dL Urine Occult Blood (<0.03) mg/dL Urine Nitrate (NEG) Urine Bilirubin (NEG) mg/dL Urine Urobilinogen (NEG) mg/dL Ur Leukocyte Esterase (NEG) /uL Urine RBC (0-1) /hpf Urine WBC (0-4) /hpf Ur Squamous Epith Cells (0-4) /hpf Ur Transition Epith Cell (0-2) /hpf Urine Bacteria (0) /hpf Hyaline Casts (0-2) /lpf Urine Mucus (0) /hpf Ur Culture Indicated? 05/06/17 05/06/17 05/06/17 Range/Units 10:11 10:42 11:46 WBC (4.5-11.0) K/mcL RBC (4.50-5.90) M/mcL Hgb (13.5-16.5) g/dL Hct (41.0-55.0) % POC Hct (41.0-55.0) % MCV (80.0-100.0) fL MCH (26.0-34.0) pg MCHC (31.0-36.0) g/dL RDW (11.5-14.5) % Plt Count (140-440) K/mcL MPV (7.4-10.4) fL Total Counted Seg Neutrophils % (38-78) % Band Neutrophils % (0-10) % Monocytes % (Manual) (1-12) % Eosinophils % (Manual) (0-7) % Myelocytes % (0-0) % Platelet Estimate (NORMAL) RBC Morphology (NORMAL) Anisocytosis (NONE SEEN) Macrocytosis (NONE SEEN) Target Cells (NONE SEEN) Acanthocytes (Spur) (NONE SEEN) RBC Fragments (NONE SEEN) PT 25.4 H (11.9-14.5) sec INR 2.2 H (0.9-1.1) VBG Lactic Acid 1.4 (0.5-2.2) mmol/L POC Sodium (133-145) mmol/L Sodium (133-145) mmol/L POC Potassium (3.3-5.1) mmol/L Potassium (3.3-5.1) mmol/L POC Chloride (96-108) mmol/L Chloride (96-108) mmol/L Carbon Dioxide (22-30) mmol/L POC Total CO2 (22-30) mmol/L Anion Gap (8-16) POC BUN (8-23) mg/dl BUN (8-23) mg/dl Creatinine (0.7-1.2) mg/dl POC Creatinine (0.7-1.2) mg/dl GFR Calculation Glucose (70-105) mg/dL POC Glucose (70-105) mg/dL Calcium (8.6-10.4) mg/dl POC WB Ioniz Calcium (1.16-1.32) mmol/L Total Bilirubin (0.0-1.0) mg/dL AST (0-37) U/l ALT (0-40) U/l Alkaline Phosphatase (39-117) U/L Total Creatine Kinase (24-195) IU/L CK-MB (CK-2) (0-4.9) ng/ml Myoglobin (28-72) ng/ml Troponin T (0-0.03) ng/ml Total Protein (5.9-8.4) gm/dL Albumin (3.2-5.2) gm/dL Globulin (2.2-3.7) gm/dL Albumin/Globulin Ratio (1.0-2.3) Urine Color Yellow Urine Appearance Clear Urine pH 5.0 (5.0-9.0) Ur Specific Flasher 1.015 (1.000-1.035) Urine Protein Neg (NEG) mg/dL Urine Glucose (UA) Negative (NEG) mg/dL Urine Ketones Neg (NEG) mg/dL Urine Occult Blood 0.03 A (<0.03) mg/dL Urine Nitrate Neg (NEG) Urine Bilirubin Neg (NEG) mg/dL Urine Urobilinogen Neg (NEG) mg/dL Ur Leukocyte Esterase 25 A (NEG) /uL Urine RBC 2 H (0-1) /hpf Urine WBC 9 H (0-4) /hpf Ur Squamous Epith Cells < 1 (0-4) /hpf Ur Transition Epith Cell < 1 (0-2) /hpf Urine Bacteria 0 (0) /hpf Hyaline Casts 18 H (0-2) /lpf Urine Mucus Few (0) /hpf Ur Culture Indicated? Yes Disposition Pt seen by [facility]/PA only: No Clinical Impression: Sepsis Qualifiers: Sepsis type: sepsis due to unspecified organism Qualified Code(s): A41.9 - Sepsis, unspecified organism Disposition: Xfer As Inpt ([facility]) Condition: Undetermined Referrals: Griselda Ferro ARNP [Primary Care Provider] -
--- NOTE | 2017-05-06 10:59 | XRay Report ---
CLINICAL INFORMATION: Chest pain COMPARISON: 02/25/2017 and 04/21/2008 baseline FINDINGS: Marked cardiomegaly is unchanged. Right central venous catheter tip is in stable position overlying the mid right atrium. Mediastinum is unremarkable. Mild pulmonary vascular congestion noted with mild edema. Underlying COPD again noted. Small right pleural effusion versus scarring is unchanged from prior study. There is mild bibasilar atelectasis. No definite infiltrate IMPRESSION: 1. Mild CHF. 2. Small right pleural effusion Interpreted and Authenticated by: Franklyn Jeffries 05/06/17
[2017-05-06 11:08] LABS: Mean Cell Volume 111.3 fL (80.0-100.0); Mean Corpuscular HGB Conc 33.4 g/dL (31.0-36.0); Mean Corpuscular Hemoglobin 37.2 pg (26.0-34.0); Platelet Count 141 K/mcL (140-440); RBC 2.44 M/mcL (4.50-5.90); Red Cell Distribution Width 24.7 % (11.5-14.5)
[2017-05-06 11:36] LABS: Acanthocytes FEW (NONE SEEN); Anisocytosis 2+ (NONE SEEN); Band Neutrophils % 14 % (0-10); Eosinophils % (Manual) 1 % (0-7); Macrocytosis 3+ (NONE SEEN); Monocytes % (Manual) 4 % (1-12); Myelocytes % 1 % (0-0); Platelet Estimate NORMAL (NORMAL); RBC Morphology ABNORM (NORMAL); Segmented Neutrophils % 81 % (38-78); Target Cells OCC (NONE SEEN)
[2017-05-06 11:37] LABS: ALT/SGPT 7 U/l (0-40); Albumin 4.2 gm/dL (3.2-5.2); Albumin/Globulin Ratio 2.1 (1.0-2.3); Alkaline Phosphatase 106 U/L (39-117); Blood Urea Nitrogen 79 mg/dl (8-23); Creatine Kinase 42 IU/L (24-195); Creatine Kinase MB 6.7 ng/ml (0-4.9); Myoglobin 138 ng/ml (28-72)
[2017-05-06] MEDS ORDERED: CEFEPIME 1 GM VIAL IV ONE (11:45)
[2017-05-06] MEDS ORDERED: VANCOMYCIN 1,000 MG in 0.9 % SODIUM CHLORIDE 250 ML IV ONE (11:45)
[2017-05-06 12:11] LABS: Appearance,Urine CLEAR; Bacteria,Urine 0 /hpf (0); Bilirubin,Urine NEG (NEG); Color,Urine YELLOW; Glucose,Urine (UA) NEGATIVE (NEG); Leukocyte Esterase,Urine 25 /uL (NEG); Mucus,Urine FEW /hpf (0); Protein,Urine NEG (NEG); Specific Gravity,Urine 1.015 (1.000-1.035); Urine Blood 0.03 mg/dL (<0.03); Urine Hyaline Cast 18 /lpf (0-2); Urine RBC 2 /hpf (0-1); Urine Squamous Epithelial Cell < 1 /hpf (0-4); Urine Transitional Epi Cells < 1 /hpf (0-2); Urine WBC 9 /hpf (0-4); Urobilinogen,Urine NEG (NEG)
[2017-05-06] MEDS ORDERED: ONDANSETRON 4 MG/2 ML VIAL IV PRN (13:52)
[2017-05-06] MEDS ORDERED: VASOPRESSIN 20 UNIT in DEXTROSE 5% IN WATER 99 ML IV SCH (13:52)
[2017-05-06] MEDS ORDERED: DEXTROSE 50% 50 ML VIAL IV PRN (13:52)
[2017-05-06] MEDS ORDERED: CEFEPIME 2 GM in DEXTROSE 5% IN WATER 50 ML IV SCH (13:52)
[2017-05-06] MEDS ORDERED: IPRATROPIUM/ALBUTEROL 3 ML AMPUL.NEB NEB SCH (13:52)
[2017-05-06] MEDS ORDERED: ACETAMINOPHEN 325 MG TABLET PO PRN (13:52)
[2017-05-06] MEDS ORDERED: DEXTROSE 31 GM ORAL.SUSP PO PRN (13:52)
[2017-05-06] MEDS ORDERED: VANCOMYCIN PER PHARMACY IV ONE (13:52)
[2017-05-06] MEDS ORDERED: 0.9 % SODIUM CHLORIDE 10 ML SYRINGE IV SCH ×2 (14:00)
[2017-05-06] MEDS ORDERED: WARFARIN 3 MG TABLET PO ONE (14:00)
--- NOTE | 2017-05-06 14:02 | Nephrology Consult Note ---
History of Present Illness - Reason for Consult Patient information: Note initiated : 05/06/17 at 1:59 pm Service Date, if different from initiated Date: [] Patient: Jakob Lancaster 86 y/o M admitted on 05/06/17 for Dizziness, hypotension. 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 Review of Systems Constitutional: fatigue, lethargy, weakness Ears: bilateral: decreased hearing (chronic) Nose, mouth and throat: no headache(s), no nasal congestion, no sore throat Cardiovascular: edema, no chest pain Respiratory: cough, no pain with cough Gastrointestinal: no abdominal pain, no nausea Genitourinary: no dysuria, no hematuria Musculoskeletal: no neck pain Integumentary: unusual bruising (chronic) Neurological: weakness, no headache(s) Psychiatric: no confusion, no hallucinations Endocrine: no palpitations Hematologic/Lymphatic: easy bruising Allergic/Immunologic: no tongue swelling, no throat swelling Past History Past medical history: End stage renal disease on chronic hemodialysis (through right IJ tunneled hemodialysis catheter, at [facility], on TTS, followed by Dr Contreras). Secondary hyperparathyroidism. Chronic anemia due to chronic kidney disease and myelodysplastic syndrome. Chronic hypotension. Diabetes mellitus type 2. Coronary artery disease. Chronic atrial fibrillation. Gout. Medications and Allergies Home Medications Medication Instructions Recorded Confirmed Type brinzolamide 1 % eye 1 drp OU BID ml 09/27/14 05/06/17 History drops,suspension tamsulosin 0.4 mg capsule 0.4 mg PO HS cap 09/27/14 05/06/17 History cholecalciferol (vitamin D3) 1,000 1,000 unit PO QDAY cap 12/06/14 05/06/17 History unit capsule Brimonidine Ophth Drops [Alphagan 1 gtt OU HS 05/28/15 05/06/17 History P Ophth Drops] Latanoprost Ophth Drops [Xalatan 1 gtt OD BID 05/28/15 05/06/17 History Ophth Drops] Ipratropium/Albuterol [Duoneb] 3 ml NEB QIDP 02/17/17 05/06/17 History Magnesium Oxide [Magnesium] 250 mg PO DAILY 02/17/17 05/06/17 History fluticasone 50 mcg/actuation nasal 1 spray INTRANASAL QDAY 02/17/17 05/06/17 History spray,suspension insulin aspart 100 unit/mL See Label Instructions SUB-Q ACHS 02/17/17 05/06/17 History subcutaneous solution metoprolol succinate ER 25 mg 25 mg PO HS 02/17/17 05/06/17 History tablet,extended release 24 hr polyethylene glycol 3350 17 17 g PO QDAY g 02/17/17 05/06/17 History gram/dose oral powder LORazepam [Ativan] 0.5 mg PO Q8HP PRN #20 tab 02/26/17 05/06/17 Rx Calcium Carbonate/Vitamin D2 1,200 mg PO DAILY 05/06/17 05/06/17 History [Calcium Oys Shell 250 mg Tab] Fish Oil 1,000 mg PO DAILY 05/06/17 05/06/17 History Furosemide [Lasix] 80 mg PO .COMPLEX M, W, F BID 05/06/17 05/06/17 History Gabapentin [Neurontin] 100 mg PO HS 05/06/17 05/06/17 History Sertraline [Zoloft] 50 mg PO DAILY 05/06/17 05/06/17 History Warfarin [Coumadin] 3 mg PO .COMPLEX M,W,F HS 05/06/17 05/06/17 History Warfarin [Coumadin] 6 mg PO DAILY 05/06/17 05/06/17 History Allergies Allergy/AdvReac Type Severity Reaction Status Date / Time No Known Drug Allergies Allergy Verified 05/06/17 09:59 Exam - Vital Signs Vital signs: Temp Pulse Resp BP Pulse Ox 97.6 F 65 16 106/68 100 05/06/17 09:56 05/06/17 11:46 05/06/17 13:07 05/06/17 13:01 05/06/17 11:46 - General Appearance General appearance: cachectic, chronically ill EENT: mucous membranes dry Neck: supple Respiratory: no kyphosis, rales Cardiology: irregular rhythm, normal S1, normal S2 Gastrointestinal: no tenderness, no guarding Integumentary: no rash, ecchymotic Neurologic: no focal deficit, alert and oriented x3 Musculoskeletal: no erythema, no cyanosis Psychiatric: mood/affect appropriate, cooperative Results - Lab Results 05/06/17 11:43 05/06/17 10:11 Most recent lab results Calcium 9.1 mg/dl (8.6-10.4) 05/06/17 10:11 Assessment and Plan (1) ESRD (end stage renal disease) on dialysis Status: Chronic Comment: Hemodialysis today for 4 hours, 2K. (2) Hyperkalemia, diminished renal excretion Status: Acute (3) Metabolic acidosis Status: Acute (4) Hyponatremia Status: Chronic (5) Other fluid overload Status: Chronic (6) Hypotension, chronic Status: Chronic (7) Sepsis Status: Acute Priority: High Comment: Severe leukocytosis with bandemia, tachypnea, hypotension, no fever, no tachycardia, no lactic acidosis, procalcitonin pending, without obvious source. Line sepsis considered. CXR: Mild right pleural effusion and CHF. Urine culture pending. May need further work up (CT Chest, Abdomen and Pelvis) for source. Vancomycin and Cefepime started after blood cultures. Qualifiers: Sepsis type: sepsis due to unspecified organism Qualified Code(s): A41.9 - Sepsis, unspecified organism
--- NOTE | 2017-05-06 15:15 | History and Physical Report ---
DATE OF ADMISSION: 05/06/2017 REASON FOR ADMISSION: Lightheadedness, dizziness. HISTORY OF CHIEF COMPLAINT: The patient is an 86-year-old with known ESRD on hemodialysis, managed by Nephrology. He was in his baseline state of health and was due for hemodialysis today. However, this morning he woke up with lightheadedness and dizziness which exacerbated each time he tried to get up from a sitting to standing position. His blood pressures were 70 systolic at home and subsequently he came to [facility] ER for evaluation. Initial workup was significant for blood pressures in the 80s along with a white count over 50,000. Notably, the patient has a history of myelodysplastic syndrome and is currently on Neupogen as managed by Oncology, Dr. Apodaca at [facility]. His last Neupogen dose was 05/05. However, patient received blood cultures along with empiric antibiotic coverage. No source could be identified on initial workup other than mild CHF and right pleural effusion. Subsequently Hospitalist Service was consulted along with Nephrology. At the time of evaluation, the patient is alert and oriented. He still feels dizzy. However, his blood pressures have improved to over 100. He was able to answer most of the questions. He denies recent medication changes. He endorses to productive cough over the last couple of months, which has not changed significantly. He denies fever, shaking chills, weight loss, or glandular swelling. He further denies sick contacts. He denies excessive salt intake and has been in his usual state of health. REVIEW OF SYSTEMS: A ten-point review of system was performed and is negative except for the ones discussed above. PAST MEDICAL HISTORY: 1. ESRD on hemodialysis. 2. COPD. 3. Atrial fibrillation. 4. Pulmonary hypertension. 5. Glaucoma. 6. Hypertension. 7. Diabetes mellitus type 2, insulin-dependent. 8. Neuropathy 9. Anxiety disorder. 10. Anticoagulation for CVA prophylaxis on Coumadin. 11. History of aortic valve replacement. 12. Myelodysplastic syndrome, currently managed by Dr. Apodaca. ALLERGIES: None significant. SOCIAL HISTORY: The patient is to his , Maria. He has a daughter, Urmila. He quit smoking 30 years ago, does not drink alcohol, and does not carry a history of substance abuse. FAMILY HISTORY: Not relevant to presenting symptoms. CURRENT MEDICATIONS: 1. Tamsulosin 0.4 mg. 2. Brinzolamide 1% both eyes. 3. Brimonidine one drop both eyes. 4. Latanoprost one drop b.i.d. 5. DuoNeb q.i.d. p.r.n. 6. Magnesium oxide 250 mg. 7. Fluticasone intranasally daily. 8. Aspart per sliding scale. 9. Metoprolol extended release 25 mg at bedtime. 10. Furosemide 80 mg Wednesday, Wednesday, Wednesday b.i.d. 11. Gabapentin 100 mg at bedtime. 12. Sertraline 50 mg daily. 13. Warfarin 3 mg on Wednesday, Wednesday, Wednesday along with 6 mg daily. PHYSICAL EXAMINATION: GENERAL: The patient is alert, oriented, and does not seem to be in apparent distress except for lightheadedness. VITAL SIGNS: Temperature 97.6, blood pressure 106/68, respiratory rate 16, pulse 69 irregular, sats 100%. HEENT: Pupils symmetric. Oral cavity is dry. No ear or nose discharge. Head is normocephalic and atraumatic. NECK: No lymphadenopathy. CHEST: S1, S2, irregular rhythm. ESM grade I. Sternotomy midline scar. Valvular click noted. Diminished breath sounds at bases. However, symmetrical breath sounds but no crackles. ABDOMEN: Soft and nontender. LOWER EXTREMITIES: Bilateral pitting edema without significant change as per patient in the recent past. Normal range of motion of the joints with no joint swelling or erythema. SKIN: No suspicious lesions. PSYCHIATRIC: Alert and cooperative. No anxiety or agitation. NEURO: Nonfocal, moving all four extremities. Normal higher functions. LABS AND IMAGING: EKG: Atrial fibrillation with PVCs. X-ray chest: Small right effusion, mild CHF. White count 54,000, hemoglobin 9.1, neutrophils 81%, and bands 14%, monocytes 4%, myelocytes 1%. INR 2.2. Lactic acid 1.4. Sodium 126, potassium 4.9, creatinine 4.3, BUN 83. LFTs unremarkable. Troponin 0.24. UA 9 WBCs. ASSESSMENT AND PLAN: An 86-year-old with ESRD, admitted with hypotension, dizziness from unclear etiology. 1. Shock of unclear etiology, hypovolemia versus septic. Await procalcitonin. Lactic acid normal. Empiric vancomycin, cefepime administered in the ER. Cultures pending. Continue close hemodynamic monitoring in ICU. Gentle crystalloids/vasopressors to keep map at goal. Avoid excessive fluid bolus in light of ESRD and CHF on chest imaging. 2. Leukocytosis. The patient carries a history of myelodysplastic syndrome managed by Dr. Apodaca at [facility]. He received his Neupogen yesterday. Case was discussed with Dr. Apodaca who recommended close followup of white count which normally would trend down after 3 days post-Neupogen administration. However, the patient will be continued on empiric treatment for possible underlying infection and sepsis while we aggressively look for source of infection. 3. Complicated UTI with pyuria on antibiotic coverage. Await cultures. 4. ESRD on HD will be managed by Nephrology. 5. Other prior medical issues, including: a. History of diabetes mellitus type 2. Continue basal prandial insulin. b. Neuropathy. Continue gabapentin. c. Glaucoma. Continue latanoprost/brinzolamide/brimonidine. d. COPD. Continue bronchodilators. e. BPH. Continue tamsulosin. f. Atrial fibrillation, currently rate controlled. g. Anticoagulation on Coumadin for CVA prophylaxis. INR therapeutic. h. Anxiety disorder. Continue sertraline. Overall, a high-complexity admit. The patient will require a minimum of 2-midnight stay for evaluation of leukocytosis while he will continue his hemodialysis as per Nephrology. AA:joao Job ID: [id number] Doc ID: [id number] Rashad SOOD [facility]
[2017-05-06] MEDS ORDERED: INSULIN LISPRO 1 UNIT/0.01 ML UNIT SQ SCH (17:00)
[2017-05-06] MEDS ORDERED: VASOPRESSIN 20 UNIT in DEXTROSE 5% IN WATER 99 ML IV PRN (17:45)
[2017-05-06] MEDS ORDERED: LORazepam 0.5 MG TABLET PO PRN (18:21)
[2017-05-06] MEDS ORDERED: CALCIUM GLUCONATE 4.65 MEQ/10 ML VIAL ONE (19:48)
[2017-05-06] MEDS ORDERED: CALCIUM CHLORIDE 1,000 MG/10 ML SYRINGE IV ONE ×2 (19:48→23:29)
[2017-05-06] MEDS ORDERED: VASOPRESSIN 20 UNIT/ML VIAL ONE (19:58)
--- NOTE | 2017-05-06 20:16 | Event Note ---
CODE BLUE Patient developed V. fib at 1940 discovered on monitor, diaphoretic pale. Nurse alerted FABIAN BLUE Managed per ACLS protocol for V. fib/polymorphic V. tach. 300 mg amiodarone and 3 doses of epi, 2 g magnesium, calcium chloride along with shock without any response. Code was called secondary to asystole Details of entire code events available in code sheet. critical care time spent on code over 40 minutes
--- NOTE | 2017-05-06 20:32 | Death Note ---
Discharge Sum: Prov - Provider Patient information: Note initiated : 05/06/17 at 8:29 pm Service Date, if different from initiated Date: [] Patient: Jakob Lancaster 86 y/o M admitted on 05/06/17 for Dizziness, hypotension. Chief Complaint: [] Primary care physician: Griselda Ferro Admitting clinician: Rashad Lee Consults: 05/06/17 12:05 Consult to Physician [CONS] Stat Comment: Consulting Provider: Rashad Lee Reason For Exam: Physician to Consult Consult to Physician [CONS] Stat Comment: Consulting Provider: John Apodaca Reason For Exam: Physician to Consult Dr. pate space operations Discharge Sum: Diag - PCOD Cause of : Cardiac arrest Discharge Sum: Summary - Date and Time Date of admission: 05/06/17 13:52 Date of : 05/06/17 Time of : 20:00 (approximate) - Summary Details: Patient with ESRD on HD was admitted with leukocytosis/lightheadedness While undergoing hemodialysis patient was found to be diaphoretic and pale with monitor revealing changes of rhythm from sinus to ventricular tachycardia degenerating into polymorphic V. tach/torsades and subsequently fine V. fib. While exact cause of cardiorespiratory arrest is unclear. Following can be contributors * V. fib arrest * ESRD on HD * History of coronary artery disease/PVD * Leukocytosis - Additional Data Confirmation of as documented by pronouncing clinician: no pulse, no respirations, no heart sounds, pupils fixed and dilated Family: contacted Additional persons at bedside: psych social worker Attending/PCP notified?: No Attending physician: Rashad Lee Was code activated?: Yes Autopsy requested?: No certified fraud examiner notified?: No Organ bank notified?: No
[2017-05-06] MEDS ORDERED: DOCUSATE SODIUM 100 MG CAPSULE PO SCH (21:00)
[2017-05-06] MEDS ORDERED: SENNOSIDES/DOCUSATE SODIUM 1 TAB TABLET PO SCH (21:00)
[2017-05-06] MEDS ORDERED: TAMSULOSIN 0.4 MG CAPSULE PO SCH (21:00)
[2017-05-06] MEDS ORDERED: BRINZOLAMIDE EYE OU SCH (21:00)
[2017-05-06] MEDS ORDERED: LATANOPROST OPHTH DROPS 2.5ML BOTTLE OD SCH (21:00)
[2017-05-06] MEDS ORDERED: BRIMONIDINE OPHTH DROPS 1 GTT BOTTLE 5ML OU SCH (21:00)
[2017-05-06] MEDS ORDERED: AMIODARONE 150 MG/3 ML VIAL IV ONE (23:29)
[2017-05-06] MEDS ORDERED: MAGNESIUM SULFATE 8.12 MEQ/2 ML VIAL IV ONE (23:29)
[2017-05-06] MEDS ORDERED: EPINEPHrine 1 MG/10 ML (1:10,000) SYRINGE IV ONE (23:29)
[2017-05-07] MEDS ORDERED: SERTRALINE 50 MG TABLET PO SCH (09:00)
[2017-05-07] MEDS ORDERED: CEFEPIME 0.5 GM in DEXTROSE 5% IN WATER 50 ML IV SCH (09:00)
[2017-05-07] MEDS ORDERED: FLUTICASONE PROPIONATE SPRAY.NAS NS SCH (09:00)
== END 2017-05-06 23:30 | disposition expired | DRG 871 ==
LOC: ED 09:56 → ICU 13:50
PROVIDERS: ADMIT Internal Medicine; ATTEND Internal Medicine